=== PATIENT | female | born 1990 | race African-American/Black ===

== ENCOUNTER 2018-09-03 01:03 | Emergency (ER) | payer MEDICAID, SELFPAY ==
[2018-09-03 01:04] VITALS: BP 150/96; PULSE 87; RESP 16; TEMP 36.4; O2SAT 100; BMI 36.8
--- NOTE | 2018-09-03 01:42 | ED.DCSUM_ITS ---
- ER Visit Summary Date of Service: 09/03/18 Chief Complaint: Cough and cannot hear History of Present Illness: The patient is a 28 F patient presenting for evaluation secondary to a respiratory illness and some difficulty with hearing. Patient reports of a course of the last week she has had a nonproductive cough. She states that it has been associated with some rhinorrhea, and the last 2 days she reports she has had plugged ears and had some difficulty with hearing. She endorses that she has had some right ear pain associated with this. She denies any nausea or vomiting. She denies any fevers. Patient is a heavy smoker. Review of systems otherwise negative. Physical Examination: Vital signs notable blood pressure 150/96. Well-nourished female no acute distress. Head normal cephalic atraumatic. TMs are clear bilaterally with some fluid behind the TMs but no evidence of opacity or blunting of the landmarks. Oropharynx is clear. Neck is supple. Heart was regular rate and rhythm with evidence of paradoxical splitting of the S2. Lung sounds are indicative of mild wheezes bilaterally. No respiratory distress. Remainder of physical otherwise unremarkable. Test Results: None indicated Emergency Department Course and Treatment: Patient presented for evaluation secondary to cough and difficulty with hearing. As far as the patient's respiratory illness seems like she has some bronchitis and some sinusitis. This has been going on over the course of about the last week so I will place the patient on a inhaler and some doxycycline. Patient coincidentally was noted to have a paradoxical split S2. She is not complaining of any chest pain does not have any tachycardia or arrhythmia I believe she can follow-up with primary care for this. She was recommended to follow-up with PCP. Disposition: Discharge Impression: 1. Bronchitis and sinusitis 2. Paradoxical splitting of the S2 This note was generated with [email or web address] dictation software. It may contain incorrect words, spelling, and punctuation that were not noted in review of the chart prior to signing ED Disposition - Plan for ED Patient: Disposition: Home or Assisted Living Chief Complaint: Ear Problem Diagnosis: Bronchitis, Heart murmur Instructions: Acute Bronchitis, ED Murmur All Types Ch Prescriptions: Albuterol Inhaler [Ventolin Hfa] 1 - 2 puff INHALATION Q4H PRN PRN #1 inhaler PRN Reason: Wheezing Doxycycline 100 mg PO BID #20 cap Referrals: Ruddy Rosenthal III, MD [STAFF PHYSICIAN] - Additional Instructions: Your had a slight heart murmur on exam that will require further followup with a primary care doctor.
== END 2018-09-03 01:52 | disposition home or self-care (01) ==
PROVIDERS: Emergency Provider Emergency Medicine
DX: J40 Bronchitis, not specified as acute or chronic (principal); J32.9 Chronic sinusitis, unspecified; R01.2 Other cardiac sounds; F17.200 Nicotine dependence, unspecified, uncomplicated
CPT/HCPCS: 99282

== ENCOUNTER 2020-01-19 17:23 | Emergency (ER) | payer SELFPAY ==
[2020-01-19 17:24] VITALS: BP 150/79; PULSE 80; RESP 18; TEMP 36.3; O2SAT 99; BMI 24.3
--- NOTE | 2020-01-19 17:39 | ED.VIS.GEN ---
History of Present Illness Chief Complaint: Nausea/Vomiting Informant: Patient Onset: Today Current Severity: Moderate Maximum Severity: Moderate Narrative: Patient presents after nausea, vomiting, and diarrhea. She states she went to the bar last night and had a couple beers and 6 shots. She states normally she can drink much more than this and feels fine. She woke up this morning with nausea and vomiting. She has not been able to keep anything down all day. She states her stomach is in knots. She denies fever or chills. She denies possibility of . - Past Medical History (1) History of appendectomy Status: Chronic Past Medical History - Allergies and Home Meds Allergies/Adverse Reactions: Allergies blueberry [Blueberry] Allergy (Verified 01/19/20 17:27) Anaphylaxis nickel [Nickel] Allergy (Verified 01/19/20 17:27) Hives lactose Adverse Reaction (Verified 01/19/20 17:27) Upset Stomach Primary Care Physician: Tanika Bolden MD [STAFF PHYSICIAN] - As Needed Prior records reviewed: Yes Surgical History: appendectomy Smoking Status: Current every day smoker Review of Systems General: Reports: Chills Eyes: Denies: Visual changes - bilaterally ENT: Denies: Bilateral ear pain Cardiovascular: Denies: Chest pain Respiratory: Denies: Dyspnea, Cough Gastrointestinal: Reports: Abdominal pain, Nausea, Vomiting, Diarrhea Genitourinary: Denies: Dysuria Musculoskeletal: Denies: Extremity Pain Skin: Denies: Rash Neurological: Denies: Headache Hematologic: Denies: Easy bruising Allergy: Denies: Uticaria Physical Exam Vital Signs/Narrative: Vital Signs Temp Pulse Resp BP Pulse Ox 01/19/20 17:24 97.4 F L 80 18 150/79 H 99 Inital Vital Signs reviewed: Yes General: Well nourished, Well developed Head: Normocephalic ENT: Moist mucous membranes Neck: Supple Cardiovascular: Regular rate, Regular rhythm Respiratory: No distress, CTA bilaterally Abdomen: Soft, Nontender, Hypoactive bowel sounds Extremities: Nontender Skin: Normal color Neurological: Alert, Oriented x3 Psychological: Normal affect Diagnostic/Tx/Re-eval Laboratory Results 01/19/20 17:45 Sodium 138 Potassium 4.9 Chloride 109 H Carbon Dioxide 20.0 L Anion Gap 9 BUN 13 Creatinine 0.92 Estim Creat Clear Calc 97.57 Est GFR (MDRD) Af Amer 92 Est GFR (MDRD) Non-Af 76 BUN/Creatinine Ratio 14.1 Glucose 86 Calcium 9.2 - Medical Decision Making Patient was given Zofran and Bentyl. On repeat evaluation she is feeling much improved. She was able to tolerate p.o. fluids. ED Disposition - Plan for ED Patient: Disposition: Home or Assisted Living Diagnosis: Vomiting Instructions: ED Nausea Vomiting Adult Prescriptions: Ondansetron [Zofran Odt] 4 mg PO Q8H PRN PRN #10 tab PRN Reason: Nausea Prescription Printed Referrals: Tanika Bolden MD [STAFF PHYSICIAN] - As Needed
[2020-01-19] MEDS: Dicyclomine 20 MG/2 ML Vial IM (17:57)
[2020-01-19] MEDS: Ondansetron 4 MG/2 ML Vial IV (18:00)
[2020-01-19] MEDS: 0.9% Normal Saline 1,000 ML 1000 ML IV (18:00)
[2020-01-19 18:41] LABS: Anion Gap 9 (5-15); BUN 13 mg/dL (7-18); BUN/Creat Ratio 14.1 RATIO (10-20); Calcium,Total 9.2 mg/dL (8.5-10.1); Chloride 109 mmol/L (98-107); Creatinine, Serum 0.92 mg/dL (0.55-1.02); EST Glomerular Filtration Rate 76 mL/min (>60); Est Glom Filt Rate - Afr Amer 92 mL/min (>60); Estimated Creatinine Clearance 97.57 ml/min; Glucose 86 mg/dL (74-106); Potassium 4.9 mmol/L (3.5-5.1); Sodium Level 138 mmol/L (136-145)
== END 2020-01-19 19:35 | disposition home or self-care (01) ==
PROVIDERS: Emergency Provider Emergency Medicine
DX: R11.2 Nausea with vomiting, unspecified (principal); F17.200 Nicotine dependence, unspecified, uncomplicated
CPT/HCPCS: 80048; 96361; 96372; 96374; 99283; J7030; A4216; J2405

== ENCOUNTER 2020-06-24 08:12 | Emergency (ER) | payer MEDICAID, SELFPAY ==
[2020-06-24 08:13] VITALS: BP 112/91; PULSE 107; RESP 17; TEMP 36.3; O2SAT 100; BMI 33.0
--- NOTE | 2020-06-24 08:24 | RAD_ITS ---
STUDY: X-RAY - LUMBAR SPINE REASON FOR EXAM: Female, 30 years old. BACK PAIN W/ RADIATION TOWARD LLE. HX TRAUMA TECHNIQUE: 2 view(s) of the lumbar spine were obtained. COMPARISON: None FINDINGS: Normal lumbar lordosis. There is no substantial scoliosis. There is a normal alignment of the vertebrae. Normal vertebral bodies and endplates. Normal disc space heights. The soft tissue structures are unremarkable. RAD/Lumbar Spine 2 or 3 Views IMPRESSION: Normal x-ray examination of the lumbar spine. Electronically Signed: Robert Woodard, at 9:53 EST , Service support ,
--- NOTE | 2020-06-24 08:25 | ED.VIS.BACK ---
History of Present Illness Chief Complaint: Back Informant: Patient Onset: Weeks - 2-3 Context: Gradual Onset - after fall Injury: Fall Timing: Continuous Quality: Aching Location: Lumbar, Left Leg Current Severity: Moderate Maximum Severity: Severe Worsened by: improves with: Ambulation Relieved by: Remaining Still Associated Symptoms: - - Pain radiates down left lower extremity to the foot at times. No saddle anesthesia. No numbness, tingling, abdominal pain, dysuria, bowel or bladder dysfunction/incontinence/retention. Narrative: Patient states she was carrying some heavy things down some steps, she slipped or tripped, twisted in the process of falling and landing on her low back. She was sore but okay, later went to work, and has had gradual worsening of pain in her mid low back, that has now been mostly on the left side and radiating down the left lower extremity in the past week or 2. Past Medical History - Allergies and Home Meds Allergies/Adverse Reactions: Allergies blueberry [Blueberry] Allergy (Verified 06/24/20 08:18) Anaphylaxis nickel [Nickel] Allergy (Verified 06/24/20 08:18) Hives lactose Adverse Reaction (Verified 06/24/20 08:18) Upset Stomach Primary Care Physician: Care Physician,No Primary [Primary Care Provider] - Past Medical History: None Surgical History: appendectomy Smoking Status: Current every day smoker Review of Systems General: Denies: Chills, Fever, Sweats Eyes: Denies: Visual changes - bilaterally, Diplopia ENT: Denies: Rhinorrhea, Sore throat Cardiovascular: Denies: Chest pain, Palpitations Respiratory: Denies: Dyspnea, Cough, Dyspnea on exertion Gastrointestinal: Denies: Abdominal pain, Vomiting, Diarrhea, Melena, Hematochezia Genitourinary: Denies: Dysuria, Hematuria, Frequency Musculoskeletal: Reports: Back pain, Extremity Pain. Denies: Neck pain, Swelling Skin: Denies: Rash, Wounds Neurological: Denies: Headache, Weakness, Numbness Physical Exam Vital Signs/Narrative: Vital Signs Temp Pulse Resp BP Pulse Ox 06/24/20 08:13 97.3 F L 107 H 17 112/91 H 100 Inital Vital Signs reviewed: Yes General: Well nourished, Well developed, Obese, - - Well-appearing, no distress Head: Normocephalic, Atraumatic Eyes: Perrl, EOMI ENT: Moist mucous membranes, No rhinorrhea Neck: Supple, - - Full range of motion without meningismus Cardiovascular: Regular rate, Regular rhythm, No murmurs Respiratory: No distress, CTA bilaterally Abdomen: Soft, Nontender, Nondistended, Normal bowel sounds Back: Normal Inspection, Spinal tenderness - Mild tenderness lumbar spine, no step-off or signs of trauma, Negative SLR - Right, Negative SLR - Left - Does increase low back pain, no radicular symptoms. Negative for: CVA tenderness Extremeties: Nontender, No edema Skin: Normal color, No rash Neuro: Alert, Oriented, Normal Strength, Normal Sensation, Normal Gait, Normal Reflexes - With downgoing toes bilaterally, no clonus Psychological: Normal affect, Normal Mood Diagnostic/Tx/Re-eval - Medical Decision Making On my interpretation, 3 view x-ray series of the lumbosacral spine is normal. Interpretation is still pending. Patient was treated with Toradol and an oral Flexeril and had some improvement. She is reassured this is likely all musculoskeletal, and probably nothing dangerous just uncomfortable hopefully self-limiting. Differential includes SI joint dysfunction, piriformis injury, she had does have some tenderness in the piriformis area which could be irritating the sciatic nerve, however her straight leg raises are negative and she does not have any signs or symptoms of cauda equina syndrome. She was given prescriptions and referred to the next doctor on the unassigned list. We discussed the possibilities of physical therapy and chiropractic to help this problem. ED Disposition - Plan for ED Patient: Disposition: Home or Assisted Living Diagnosis: Musculoskeletal back pain Instructions: ED LUMBAR SPRAIN/STRAIN Prescriptions: cycloBENZAPRine HCl [Flexeril] 10 mg PO TID PRN #15 tab PRN Reason: Muscle Spasm Transmission Status: Pending to [facility] Naproxen [Naprosyn] 500 mg PO BID PRN #20 tab Transmission Status: Pending to [facility] Referrals: Cyrus Hines DO [STAFF PHYSICIAN] - 1 Week if not improving
[2020-06-24] MEDS: Ketorolac 60 MG/2 ML Vial IM (08:48)
[2020-06-24] MEDS: cycloBENZAPRine HCl 10 MG Tablet PO (08:48)
[2020-06-24 09:45] VITALS: BP 120/67; PULSE 59; RESP 16; O2SAT 98
== END 2020-06-24 09:49 | disposition home or self-care (01) ==
PROVIDERS: Emergency Provider Emergency Medicine
DX: M54.9 Dorsalgia, unspecified (principal); F17.200 Nicotine dependence, unspecified, uncomplicated; E66.9 Obesity, unspecified
CPT/HCPCS: 72100; 96372; 99283

== ENCOUNTER 2020-08-20 04:35 | Emergency (ER) | payer MEDICAID, SELFPAY ==
[2020-08-20 04:36] VITALS: BP 126/75; PULSE 92; RESP 20; TEMP 36.5; O2SAT 99; BMI 39.2
[2020-08-20 04:39] VITALS: O2SAT 100
--- NOTE | 2020-08-20 04:46 | EKG12_ITS ---
Test Reason : SOB Blood Pressure : / mmHG Vent. Rate : 080 BPM Atrial Rate : 080 BPM P-R Int : 150 ms QRS Dur : 076 ms QT Int : 408 ms P-R-T Axes : 075 064 039 degrees QTc Int : 470 ms Normal sinus rhythm Normal ECG Confirmed by PRICILLA AYALA, WES ([id number]), commissioning editor SEAMUS RUDD ([id number]) on 08/24/2020 9:33:14 AM Referred By: LEVI Confirmed By:YANY PLEITEZ MD
--- NOTE | 2020-08-20 04:46 | RAD_ITS ---
STUDY: X-RAY CHEST REASON FOR EXAM: Female, 30 years old. patient has not been feeling well for the past couple of days. patient complains of fever and cough. woke up this morning with shortness of breath and chest pain TECHNIQUE: Single AP portable view of the chest. COMPARISON: 05/26/2013. FINDINGS: There are no confluent pulmonary infiltrates. There is no demonstrated pleural abnormality. Normal size heart. Normal mediastinum and jorge. Normal visualized aortic arch and descending thoracic aorta. There are no demonstrated acute fractures or destructive bone lesions. There is no demonstrated abnormality of the visualized soft tissue structures of the upper abdomen. RAD/Chest 1 View (Portable) IMPRESSION: Normal x-ray examination of the chest. Electronically Signed: Ras Dillon MD at 5:31 EST , Service support ,
--- NOTE | 2020-08-20 04:47 | ED.VIS.GEN ---
History of Present Illness Chief Complaint: Shortness of Breath Narrative: 30-year-old female with no reported significant past medical history presenting with body aches, loss of taste and smell, cough and shortness of breath. She has no known exposure to Covid?19. Patient states that her symptoms started Monday with a headache and generally feeling unwell. On Monday she had some nausea/vomiting. He has been able to hold down some fluids but has decreased appetite. She states she took some gingerroot which did help mildly. On Monday she felt somewhat improved and then yesterday started to have nausea, vomiting. Patient denies abdominal pain. She is admitting to some chest discomfort in the left side of her chest. She has a painful cough as well. She has no known fever at home but has not checked it. History of DVT/PE. Past Medical History - Allergies and Home Meds Allergies/Adverse Reactions: Allergies blueberry [Blueberry] Allergy (Verified 08/20/20 04:39) Anaphylaxis nickel [Nickel] Allergy (Verified 08/20/20 04:39) Hives lactose Adverse Reaction (Verified 08/20/20 04:39) Upset Stomach Primary Care Physician: Care Physician,No Primary [Primary Care Provider] - Prior records reviewed: Yes Past Medical History: - - Denies significant medical history. Surgical History: appendectomy Smoking Status: Current every day smoker Alcohol: None Drugs: None Review of Systems General: Reports: Chills, Malaise Eyes: Denies: Visual changes - bilaterally, Diplopia ENT: Denies: Rhinorrhea, Sore throat Cardiovascular: Reports: Chest pain. Denies: Palpitations, Heart racing Respiratory: Reports: Dyspnea, Cough Gastrointestinal: Reports: Nausea, Vomiting, Diarrhea. Denies: Abdominal pain Genitourinary: Denies: Dysuria, Hematuria, Frequency Musculoskeletal: Reports: Myalgias. Denies: Arthralgias Skin: Denies: Rash, Wounds Neurological: Denies: Parasthesia, Numbness Psych: Denies: Depression, Anxiety Physical Exam Vital Signs/Narrative: Vital Signs Temp Pulse Resp BP Pulse Ox 08/20/20 04:36 97.7 F L 92 20 H 126/75 H 99 Inital Vital Signs reviewed: Yes General: Well nourished, No Acute Distress Head: Normocephalic, Atraumatic Eyes: Perrl, EOMI ENT: Moist mucous membranes, No rhinorrhea Cardiovascular: Regular rate, Regular rhythm Respiratory: No distress, CTA bilaterally Abdomen: Soft, Nontender Extremities: Nontender, No edema Skin: Normal color, No rash. Negative for: Cyanosis, Diaphoresis Neurological: Alert, Oriented x3, Cranial nerves II-XII grossly intact Psychological: Normal affect, Normal Mood Diagnostic/Tx/Re-eval - Rhythm Strip Rhythm Strip: Sinus Rhythm Rate: 80 - EKG Initial EKG Interpretation: Sinus Rhythm, No Acute Injury Pattern - Medical Decision Making 30-year-old female presenting with chest pain, cough, shortness of breath, body aches, change in taste and smell. Patient's initial EKG was sinus rhythm 80 bpm without signs of ischemic change as interpreted by myself. Chest x-ray shows no acute process as interpreted by myself and the radiologist. CBC shows a slight white blood cell count at 13,000 which may be due to the patient's vomiting. Her electrolytes and renal function are normal. Troponin is negative. CTA interpreted by the radiologist and reviewed by myself show no obvious PEs or infiltrates. Patient will be given a prescription for Zofran for home. She is encouraged to up with her primary care provider. She is given return precautions. Patient stable for discharge at this time. I do not believe that her chest pain is from a cardiac etiology. I do not believe she needs another EKG or troponin. Impression: 1. Viral syndrome 2. Nausea vomiting 3. Chest pain ED Disposition - Plan for ED Patient: Disposition: Home or Assisted Living Instructions: Coronavirus Disease 2019 (COVID-19): Overview, Coronavirus Disease 2019 (COVID-19): Caring for Yourself or Others, ED Vomiting (Adult), ED Chest Pain, Uncertain Cause Referrals: Care Physician,No Primary [Primary Care Provider] -
--- NOTE | 2020-08-20 04:49 | ED.RN ---
no old ekgs in [facility]
[2020-08-20 04:59] LABS: Absolute Lymphocyte Count 3.41 X10^3/uL (0.83-4.51); Absolute Neutrophil Count 7.8 X10^3/uL (2.0-7.7); Basophil# 0.13 X10^3/uL; Eosinophil# 0.71 X10^3/uL; Eosinophils% 5.4 % (0-5); Hematocrit 38.7 % (37-47); Hemoglobin 12.3 g/dL (12.0-15.0); Lymphocyte # 3.41 X10^3/ul (4.0); Mean Corp Hgb Conc 31.8 g/dL (32-36); Mean Corpuscular Hgb 26.3 pg (27.0-32.0); Mean Corpuscular Volume 82.9 fL (81-99); Mean Platelet Vol. 9.9 fl (6.2-12.0); Monocyte# 1.09 X10^3/uL; Monocyte% 8.3 % (0-10); NRBC Flagged by Analyzer 0 % (0-5); Neutrophil # 7.75 X10^3/uL (2.7-7.7); Platelet Count 394 K/mm3 (150-450); RBC Distribution Width CV 14.6 % (11.6-14.6); RBC Distribution Width SD 43.4 fl (35.1-43.9); Red Blood Count 4.67 M/mm3 (4.2-5.4); White Blood Count 13.1 K/mm3 (4.4-11.0)
--- NOTE | 2020-08-20 05:03 | CT_ITS ---
STUDY: CTA CHEST REASON FOR EXAM: Female, 30 years old. CP/COUGH/SOB/FEVER. Best images. Patient writhing on table. IV infiltrated RADIATION DOSAGE (If Supplied By Facility): CTDIvol = ( 8.64 ) mGy, DLP = ( 553.07 ) mGycm TECHNIQUE: The examination was performed with the intravenous administration of IV 100mL Isovue-370. Post-processing of the angiographic images was performed, with multiplanar reformation, but without 3D reconstruction. Exam is limited by motion artifacts. Individualized dose optimization techniques were used for this CT. COMPARISON: Chest x-ray 08/20/2020.w FINDINGS: Normal enhancement of the main pulmonary artery and right and left pulmonary arteries. Slightly limited enhancement of the bilateral peripheral pulmonary arteries. There is no demonstrated pulmonary embolism. Sensitivity for small pulmonary emboli is limited by respiratory motion as well as slightly limited contrast enhancement. Normal thoracic aorta and visualized great vessels. There is no demonstrated aortic dissection. Normal heart and pericardium. Normal mediastinum. Normal hilar regions. Normal visualized trachea and bronchi. The lungs are well expanded. Normal pulmonary parenchyma. Normal pleura. Normal chest wall structures. Normal osseous structures. Normal visualized upper abdomen. CT/CTA Chest W/WO Contrast IMPRESSION: No evidence for pulmonary embolism, aortic aneurysm, or aortic dissection. Sensitivity for small pulmonary emboli is limited by motion artifacts as well as slightly less than optimal contrast enhancement. No evidence for acute cardiopulmonary pathology. Electronically Signed: Ras Dillon MD at 6:02 EST , Service support ,
[2020-08-20 05:18] LABS: AST(SGOT) 14 U/L (15-37); Alanine Aminotransfer ALT/SGPT 18 U/L (13-56); Albumin, Serum 3.8 g/dL (3.2-5.0); Alkaline Phosphatase 86 U/L (45-117); Anion Gap 6 (5-15); BUN 13 mg/dL (7-18); BUN/Creat Ratio 13.5 RATIO (10-20); Calcium,Total 8.7 mg/dL (8.5-10.1); Chloride 109 mmol/L (98-107); Creatinine, Serum 0.96 mg/dL (0.55-1.02); EST Glomerular Filtration Rate 72 mL/min (>60); Est Glom Filt Rate - Afr Amer 87 mL/min (>60); Estimated Creatinine Clearance 89.55 ml/min; Glucose 96 mg/dL (74-106); Potassium 3.8 mmol/L (3.5-5.1); Protein, Total 7.8 g/dL (6.4-8.2); Sodium Level 136 mmol/L (136-145)
[2020-08-20] MEDS: Ondansetron ODT 4 MG Tablet PO (06:17)
[2020-08-20 06:28] VITALS: RESP 18; O2SAT 97
== END 2020-08-20 06:29 | disposition home or self-care (01) ==
PROVIDERS: Emergency Provider Student in an Organized Health Care Education/Training Program
DX: B34.9 Viral infection, unspecified (principal); R11.2 Nausea with vomiting, unspecified; R07.9 Chest pain, unspecified; F17.200 Nicotine dependence, unspecified, uncomplicated; Z86.711 Personal history of pulmonary embolism; Z86.718 Personal history of other venous thrombosis and embolism
CPT/HCPCS: 71045; 71275; 80053; 84484; 85025; 87635; 93005; 99285; Q9967; A4216; U0003

== ENCOUNTER 2020-08-27 12:02 | Emergency (ER) | payer MEDICAID, SELFPAY ==
[2020-08-27 12:04] VITALS: BP 136/90; PULSE 69; RESP 27; TEMP 36.6; O2SAT 100; BMI 39.7
--- NOTE | 2020-08-27 12:25 | ED.VISSUMM ---
- ER Visit Summary Date of Service: 08/27/20 Chief Complaint: Abdominal pain, nausea, and vomiting History of Present Illness: The patient is a 30 F who presents with abdominal pain, nausea, and vomiting that has been getting worse over the past 3 days. Patient states she has been having some nausea and vomiting for the past week. Patient states her pain began 3 days ago and is getting worse. Patient describes it as sharp. Patient states it is worse over the lower abdomen but is diffuse across her entire abdomen. Patient denies any hematemesis or coffee-ground emesis. Patient also admits to some diarrhea. Patient states it is loose and watery. Patient also admits to some dysuria and urinary frequency. Patient states she has been having some constant vaginal bleeding for the past 2 months. Physical Examination: Vital signs are stable. Patient is afebrile. Patient is in no acute distress. Oral mucosa is pink and moist. Neck is supple. Trachea is midline. There is no JVD. Heart was regular rate and rhythm. Lungs are clear and equal bilaterally. There is adequate respiratory effort. Abdomen is soft. Bowel sounds are normal. There is diffuse tenderness. There is no rebound or guarding noted. Cranial nerves II through XII are intact. There are no focal motor or sensory deficits noted. Extremities are intact. There is no calf tenderness or edema. Test Results: CBC and comprehensive metabolic profile were ordered. Urinalysis was ordered. Serum hCG was ordered. Emergency Department Course and Treatment: Patient was ordered IV fluids, Zofran, and Toradol. Patient became upset when the nurse was starting the IV. Patient wants to be discharged. Patient does not want to wait for urine results or to get any labs or medications. Patient will be discharged. Patient was instructed to follow-up with her primary care physician in 3 to 5 days. Patient understood and was agreeable with the plan. Disposition: Discharge home Impression: 1. Abdominal pain This note was generated with [employer] dictation software. It may contain incorrect words, spelling, and punctuation that were not noted in review of the chart prior to signing Capacity - Capacity Assessment Tool Can the patient make a choice & communicate that choice?: Yes Can the patient understand benefits, risks and alternatives?: Yes Can the patient make a logical, rational choice?: Yes Is the choice the patient makes consistent w/ their values?: Yes Is there an impending, emergent risk to the patient?: No ED Disposition - Plan for ED Patient: Disposition: Home or Assisted Living Diagnosis: Abdominal pain Instructions: ED Abdominal Pain Unkn Cause Fem Referrals: Care Physician,No Primary [Primary Care Provider] - 3-5 Days
[2020-08-27 12:50] LABS: Mucous, Urine 0 SEEN /hpf (<or=2+)
[2020-08-27 13:00] LABS: Color, Urine Yellow (Yellow); Glucose, Dipstick Normal (Normal); Ketone-Dipstick Negative (Negative); Leukocyte Esterase-Dipstick 100 /ul (Negative); Nitrite-Dipstick Negative (Negative); Occult Blood-Urine 250 /ul (Negative); Protein-Dipstick Negative (Negative); Urine Bilirubin Dipstick Negative (Negative); Urine Clarity Clear (Clear); Urine Urobilinogen Normal (Normal)
[2020-08-27 13:02] LABS: Bacteria 1+ /hpf (None Seen); Red Blood Cells-Urine 25-50 SEEN /hpf (0-5); Squamous Epithelial Cells - UA 0-5 SEEN /hpf (5-10); White Blood Cells 10-25 SEEN /hpf (0-5)
--- NOTE | 2020-08-27 13:04 | ED.RN ---
ATEMPTED TO START PTS IV, PT'S ANXIETY WENT TROUGH THE ROOF RESULTING IN HER CRYING A YELLING HYSTERICALLY. PT WAS CRYING AND TOOK MULTIPLE TIMES OF SOFLY TALKING WITH HER TO GET HER CALMED DOWN. PT WAS ABLE TO RELAX ENOUGH TO LOOK FOR ANOTHER IV SITE BUT BEFORE IT WAS ATTEMPTED PT STATED SHE JUST WANTED TO GO HOME. TRY TO CONVINCE PT TO ATLEAST WAIT FOR HER URINE RESULTS BUT SHE CONTINUES TO CRY AND SAY SHE NEEDS TO GO HOME. PHYSICIAN NOTIFIED AND AGREED TO DISCHARGE PT. PT WAS GIVEN DISCHARGE PAPERS AFTER AGAIN TRYING TO ENCOURAGE HER TO STAY FOR ATLEAST HER URINE RESULTS. PT STATED SHE JUST WANTED TO GO HOME.
[2020-08-27 15:00] LABS: Chlamydia Trachomatis by PCR Negative (Negative); Neisserai gonorrhoeae by PCR Negative (Negative); Probe Check PASS; Sample Adequacy Control PASS; Specimen Processing Control PASS
== END 2020-08-27 13:10 | disposition home or self-care (01) ==
PROVIDERS: Emergency Provider Emergency Medicine
DX: R10.9 Unspecified abdominal pain (principal); F17.200 Nicotine dependence, unspecified, uncomplicated
CPT/HCPCS: 81001; 87491; 87591; 99284; J2405

== ENCOUNTER → 2020-08-28 12:09 | Outpatient (CLI) | payer MEDICAID, SELFPAY ==
[2020-08-28 10:03] VITALS: BMI 38.5
[2020-08-28 12:26] LABS: Color, Urine Yellow (Yellow); Glucose, Dipstick Normal (Normal); Ketone-Dipstick 5 mg/dl (Negative); Leukocyte Esterase-Dipstick 25 /ul (Negative); Nitrite-Dipstick Negative (Negative); Occult Blood-Urine 25 /ul (Negative); Protein-Dipstick 30 mg/dl (Negative); Specific Gravity, Urine 1.025 (1.002-1.030); Urine Bilirubin Dipstick Negative (Negative); Urine Clarity Sl. Cloudy (Clear); Urine Urobilinogen 1 mg/dl (Normal)
[2020-08-28 12:45] LABS: Bacteria RARE /hpf (None Seen); Mucous, Urine 1+ /hpf (<or=2+); Red Blood Cells-Urine 0-5 SEEN /hpf (0-5); Squamous Epithelial Cells - UA 0-5 SEEN /hpf (5-10); White Blood Cells 0-5 SEEN /hpf (0-5)
== END ==
PROVIDERS: Referring Provider Physician Assistant Surgical; Visit Provider Physician Assistant Surgical
DX: R11.0 Nausea (principal)
CPT/HCPCS: 81001; 87086; 87088

== ENCOUNTER → 2020-09-29 09:48 | Outpatient (CLI) | payer MEDICAID, SELFPAY ==
[2020-09-29 08:21] VITALS: BMI 38.7
[2020-09-29 13:07] LABS: Hemoglobin A1c 5.5 % (3.8-5.6)
[2020-09-29 13:08] LABS: Absolute Lymphocyte Count 2.16 X10^3/uL (0.83-4.51); Absolute Neutrophil Count 4.9 X10^3/uL (2.0-7.7); Basophil# 0.09 X10^3/uL; Basophil% 1.1 % (0-1); Eosinophil# 0.48 X10^3/uL; Eosinophils% 5.8 % (0-5); Hematocrit 36.9 % (37-47); Hemoglobin 11.7 g/dL (12.0-15.0); Lymphocyte # 2.16 X10^3/ul (4.0); Lymphocyte % 26.3 % (19-41); Mean Corp Hgb Conc 31.7 g/dL (32-36); Mean Corpuscular Hgb 26.2 pg (27.0-32.0); Mean Corpuscular Volume 82.6 fL (81-99); Mean Platelet Vol. 10.2 fl (6.2-12.0); Monocyte# 0.57 X10^3/uL; Monocyte% 6.9 % (0-10); NRBC Flagged by Analyzer 0 % (0-5); Neutrophil % 59.7 % (47-70); Platelet Count 374 K/mm3 (150-450); RBC Distribution Width CV 14.7 % (11.6-14.6); Red Blood Count 4.47 M/mm3 (4.2-5.4); White Blood Count 8.2 K/mm3 (4.4-11.0)
[2020-09-29 13:17] LABS: Vitamin D,25 Hydroxy 9.6 ng/mL
[2020-09-29 13:40] LABS: ALB/GLOB Ratio 0.9 RATIO (0.9-2.4); AST(SGOT) 13 U/L (15-37); Alanine Aminotransfer ALT/SGPT 24 U/L (13-56); Albumin, Serum 3.5 g/dL (3.2-5.0); Alkaline Phosphatase 73 U/L (45-117); Anion Gap 6 (5-15); BUN 13 mg/dL (7-18); BUN/Creat Ratio 14.2 RATIO (10-20); Calcium,Total 8.6 mg/dL (8.5-10.1); Chloride 111 mmol/L (98-107); Cholesterol 165 mg/dL (200); Creatinine, Serum 0.91 mg/dL (0.55-1.02); EST Glomerular Filtration Rate 76 mL/min (>60); Est Glom Filt Rate - Afr Amer 93 mL/min (>60); Glucose 89 mg/dL (74-106); High Density Lipoprotein 40 mg/dL; Potassium 4.2 mmol/L (3.5-5.1); Protein, Total 7.5 g/dL (6.4-8.2); Sodium Level 140 mmol/L (136-145); Thyroid Stim Hormone (TSH) 1.66 uIU/mL (0.358-3.74); Triglycerides 71 mg/dL; Very Low Density Lipoprotein 14 mg/dL (5-40)
== END ==
PROVIDERS: PCP Internal Medicine; Referring Provider Internal Medicine; Visit Provider Internal Medicine
DX: E55.9 Vitamin D deficiency, unspecified (principal); Z13.220 Encounter for screening for lipoid disorders; Z13.1 Encounter for screening for diabetes mellitus
CPT/HCPCS: 36415; 80053; 80061; 82306; 83036; 84443; 85025

== ENCOUNTER → 2020-10-09 08:09 | Outpatient (CLI) | payer MEDICAID, SELFPAY ==
[2020-09-29 08:21] VITALS: BMI 38.7
--- NOTE | 2020-10-09 08:11 | US_ITS ---
STUDY: ABDOMINAL ULTRASOUND - RIGHT UPPER QUADRANT REASON FOR VISIT: Female, 30 years old REFLUX -- RIGHT AND EPIGASTRIC PAIN X 2 YEARS TECHNIQUE: Ultrasound evaluation of the right upper quadrant was performed with real-time and static antunez-scale imaging. TECHNICAL QUALITY: Adequate. COMPARISON: None. FINDINGS: Liver: The liver measures 17.5 cm. There is increased echogenicity consistent with fatty infiltration. The bile ducts are within normal limits. There is hepatic color flow. The direction of portal flow is hepatopetal. There is no demonstrated mass lesion. Gallbladder: Normal distended gallbladder. The gallbladder wall measures 2.8 mm. There is a negative sonographic Sheehan''s sign. There is no pericholecystic fluid. There are no gallstones. Common Bile Duct (C.B.D.): The common bile duct measures 3 mm. Pancreas: Normal size of the head, body and tail of the pancreas. There is normal echogenicity of the pancreas. There is no demonstrated pancreatic mass or cyst. Right Kidney: Normal size of the right kidney. The right kidney measures 10.1 cm x 6.6 cm x 4.7 cm. Normal renal cortex. The right cortex measures 1.6 cm. There is no demonstrated renal mass or cyst. There is no right hydronephrosis. US/Abdomen Limited IMPRESSION: Mild degree of fatty infiltration of the liver. Electronically Signed: Robert Woodard MD at 10:57 EST , Service support ,
--- NOTE | 2020-10-09 10:22 | NM_ITS ---
CLINICAL: 30-year-old female with reported history of abdominal pain and nausea. RADIONUCLIDE HEPATOBILIARY SCINTIGRAPHY COMPARISON: Abdominal ultrasound report 10/09/2020 FINDINGS: Following the intravenous administration of 5.3 mCi of 99m Tc Mebrofenin, hepatobiliary images reveal: 1. Relatively prompt and homogeneous radiopharmaceutical concentration is noted by a normal sized liver. No parenchymal defects are identified. 2. Gallbladder activity is identified at 10 minutes post radiopharmaceutical administration. 3. Small intestinal tract is not visualized during 60 minutes of pre-CCK sequential imaging. Small bowel activity is identified following the administration of cholecystokinin. 4. Washout of the radiopharmaceutical by the hepatic parenchyma appears qualitatively normal. Cholecystokinin (0.02 ug/kg) was administered intravenously over a 30-minute period. The post CCK gallbladder ejection fraction calculated at 16 minutes following Cholecystokinin administration was noted to be 38.0 % (normal greater than 35%). During 30 minutes of post CCK imaging, there is no scintigraphic evidence of reflux of the radiotracer into the common hepatic duct or refilling of the gallbladder. NM/Hepatobilliary Img w/Pharm Int IMPRESSION: 1. NORMAL 99m Tc Mebrofenin hepatobiliary imaging examination with Cholecystokinin. A. A gallbladder ejection fraction calculated to be greater than 35% following the administration of Cholecystokinin makes the probability of functional hepatobiliary disease (gallbladder and/or sphincter of Oddi dyskinesia) and/or organic hepatobiliary disease (chronic acalculous cholecystitis and/or cystic duct syndrome) to be low. (Radha Hammond et al, Journal of Nuclear Medicine 32:1695, 1991). Electronically Signed: Ld Licona DO at 8:23 EST Tel , Service support ,
== END ==
PROVIDERS: PCP Internal Medicine; Referring Provider Internal Medicine; Visit Provider Internal Medicine
DX: K21.9 Gastro-esophageal reflux disease without esophagitis (principal); R10.9 Unspecified abdominal pain
CPT/HCPCS: 76705; 78227; A9537; J2805

== ENCOUNTER 2020-10-16 09:23 | Day surgery (SDC) | payer MEDICAID, SELFPAY ==
[2020-10-16] VITALS (7 sets, daily range): BP systolic 91–121; BP diastolic 67–95; PULSE 63–72; RESP 16; TEMP 36.1–36.4; O2SAT 98–100; BMI 37.2
--- NOTE | 2020-10-16 | EGD_PTH ---
PATIENT: LUCIANO MITCHELL LOC: EN U#:[id number] AGE/SX: 30/F ROOM: RE10/16/[address]: Dr. Roddy Rosenthal MD : 1990 BED: DIS: 10/16/2020 SPEC #: [id number] RECD: 10/16/20 12:40 STATUS: ALVAREZ GENNY #: [id number] XANDER: 10/16/20 00:[address]: Roddy Rosenthal DEPT: SURGICAL PATHOLOGY RECD BY: Gonzalez Roldan ENTERED: 10/16/20 12:41 SP TYPE: EGD BIOPSY [facility] DR: Dr. Pebbles Joy MD Tissues: A - Duodenum, NOS B - Gastric mucous membrane C - Esophageal mucous membrane D - Esophageal mucous membrane E - COLON BIOPSY F - Transverse colon Procedures: Surgery Specimen Level IV HEADER OPERATION: Colonoscopy, EGD ([facility] [place]) PRE-OP DIAGNOSIS: GERD, abdominal pain TISSUE SUBMITTED: A - Duodenum biopsy, B - Antrum biopsy, C - Distal esophagus biopsy, D - Mid esophagus biopsy, E - Random colonic biopsies, F - Mid transverse polyp biopsy MICROSCOPIC DIAGNOSIS A. Duodenum, biopsy: Fragments of duodenal mucosa with Columba gland hyperplasia. B. Antrum, biopsy: Mild gastritis. See microscopic description and comment. C. Distal esophagus, biopsy: Fragments of squamous epithelium with minimal chronic inflammation. D. Mid esophagus, biopsy: A fragment of squamous epithelium, no pathologic diagnosis. E. Colon, random biopsy: Fragments of colonic mucosa, no pathologic diagnosis. F. Mid transverse polyp, biopsy: Fragments of colonic mucosa with focal minimal adenomatous changes, consistent with early tubular adenoma. SJ:rg 10/19/20 COMMENT B. The results of immunohistochemistry for Helicobacter pylori will be reported separately ([id number]). MICROSCOPIC DESCRIPTION Slides are reviewed. B. The specimen shows fragments of gastric mucosa with chronic inflammatory cell infiltrates in the lamina propria consisting of lymphocytes and plasma cells, consistent with mild chronic gastritis. GROSS DESCRIPTION A - Received in fixative is one container labeled with the patient's name and designated duodenum biopsy. The specimen consists of two irregular fragments of light mclaughlin soft tissue that in aggregate measure 0.6 x 0.3 x 0.1 cm. The specimen is totally submitted in one cassette. B - Received in fixative is one container labeled with the patient's name and designated antrum biopsy. The specimen consists of one irregular fragment of light mclaughlin soft tissue that measures 0.4 x 0.3 x 0.1 cm. The specimen is totally submitted in one cassette. C - Received in fixative is one container labeled with the patient's name and designated distal esophagus biopsy. The specimen consists of one irregular fragment of light mclaughlin soft tissue that measures 0.2 x 0.2 x 0.1 cm. The specimen is totally submitted in one cassette. D - Received in fixative is one container labeled with the patient's name and designated mid esophagus biopsy. The specimen consists of one irregular fragment of light mclaughlin soft tissue that measures 0.4 x 0.2 x 0.1 cm. The specimen is totally submitted in one cassette. E - Received in fixative is one container labeled with the patient's name and designated random colonic biopsy. The specimen consists of multiple irregular fragments of light mclaughlin soft tissue that in aggregate measure 1 x 0.8 x 0.1 cm. The specimen is totally submitted in one cassette. F - Received in fixative is one container labeled with the patient's name and designated mid transverse polyp biopsy. The specimen consists of two irregular fragments of light mclaughlin soft tissue that in aggregate measure 0.5 x 0.2 x 0.1 cm. The specimen is totally submitted in one cassette. / SJ:rg 10/16/20 TC:3 CPT: 90477 x6
[2020-10-16 10:00] LABS: Internal QC Validated? YES +Cl - CLEAR BKGD; Pregnancy, Urine Negative Negative
[2020-10-16] MEDS: Lactated Ringers 1,000 ML 100 ML IV (10:00)
--- NOTE | 2020-10-16 10:00 | PCM.HP.BLA ---
Problem List (1) GERD (gastroesophageal reflux disease) Status: Chronic (2) Abdominal pain Status: Acute Qualifiers: History and Physical Date of Admission: 10/16/20 Intake Intake Visit Reasons: REFLUX Chief Complaint: abdominal pain [employer] Required: No Accompanied by: Unknown Is patient in pain?: Yes Allergies blueberry [Blueberry] Allergy (Verified 10/14/20 13:31) Anaphylaxis nickel [Nickel] Allergy (Verified 10/14/20 13:31) Hives lactose Adverse Reaction (Verified 10/14/20 13:31) Upset Stomach Medications albuterol sulfate 90 mcg/actuation breath activated powder inhaler 2 inh INHALATION Q4H PRN 10/14/20 [History Confirmed 10/14/20] PFS Medical History (Updated 10/14/20 @ 12:26 by Lin Baldwin) Vitamin D deficiency (Chronic) Frequent headaches (Chronic) History of substance abuse (Acute) H. pylori infection (Acute) GERD (gastroesophageal reflux disease) (Chronic) Heavy menses (Acute) Chronic back pain (Chronic) Scoliosis (Chronic) Seasonal allergies (Chronic) Asthma (Chronic) Abdominal pain (Acute) Depression with anxiety (Acute) Diarrhea (Acute) Nausea and vomiting (Acute) Surgical History History of appendectomy (Acute) History of tonsillectomy (Acute) Family History Aunt Diabetes Colon cancer Grandmother COPD (chronic obstructive pulmonary disease) Heart disease Hypertension Uncle Heart disease Hypertension Myocardial infarction, Onset Age: 40 Father Cancer lung Hypertension Mother Colon cancer Social History (Updated 10/14/20 @ 15:38 by Theodora ANTHONY, PA-C) Smoking Status: Current every day smoker Tobacco: How many years used: 12 alcohol intake: never substance use type: former substance user 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 Rosenthal. Patient presents to the office today for diffuse abdominal pain, nausea, vomiting, diarrhea. Patient states she has had reflux disease since 2009. She has never been placed on PPI medication or other treatment for her reflux. She noted approximately 2 months ago she was prophylactically treated for H Pylori. Patient stated her significant other and her children had tested positive via stool test 2 months ago and were treated. They all live together. Patient stated she had a 14 day course of treatment with 3 different medications. She was never tested for H Pylori. She was also treated for a UTI and asthma exacerbation with steroids and another antibiotic. She noted her H pylori treatment slightly helped her symptoms at that time. These symptoms have since returned. She notes avoiding acidic foods. She states her diet is salads, chicken and hamburger. She notes lack of appetite. She stated she has lost 25 pounds unintentionally. Patient's mother was diagnosed with colon cancer in 1995. She notes her mother had to have chemo and part of her colon removed. Patient's mother is still living. Patient notes her reflux occurs multiple times per day and does not associate only with food. She denies feeling better with food. She will occasionally take Pepto Bismol at bedtime which does not help much. She notes occasional BRBPR and dark stools. She notes her abdominal pain is worse in her RUQ and sternal area and will radiate around in the left lower back. Patient's PCP order a RUQ u/s and HIDA scan. She had CBC, CMP which were noted for slight decrease in hemoglobin otherwise unremarkable. Imaging results are as follows: STUDY: ABDOMINAL ULTRASOUND - RIGHT UPPER QUADRANT REASON FOR VISIT: Female, 30 years old REFLUX -- RIGHT AND EPIGASTRIC PAIN X 2 YEARS TECHNIQUE: Ultrasound evaluation of the right upper quadrant was performed with real-time and static antunez-scale imaging. TECHNICAL QUALITY: Adequate. COMPARISON: None. FINDINGS: Liver: The liver measures 17.5 cm. There is increased echogenicity consistent with fatty infiltration. The bile ducts are within normal limits. There is hepatic color flow. The direction of portal flow is hepatopetal. There is no demonstrated mass lesion. Gallbladder: Normal distended gallbladder. The gallbladder wall measures 2.8 mm. There is a negative sonographic Sheehan''s sign. There is no pericholecystic fluid. There are no gallstones. Common Bile Duct (C.B.D.): The common bile duct measures 3 mm. Pancreas: Normal size of the head, body and tail of the pancreas. There is normal echogenicity of the pancreas. There is no demonstrated pancreatic mass or cyst. Right Kidney: Normal size of the right kidney. The right kidney measures 10.1 cm x 6.6 cm x 4.7 cm. Normal renal cortex. The right cortex measures 1.6 cm. There is no demonstrated renal mass or cyst. There is no right hydronephrosis. US/Abdomen Limited IMPRESSION: Mild degree of fatty infiltration of the liver. RADIONUCLIDE HEPATOBILIARY SCINTIGRAPHY COMPARISON: Abdominal ultrasound report 10/09/2020 FINDINGS: Following the intravenous administration of 5.3 mCi of 99m Tc Mebrofenin, hepatobiliary images reveal: 1. Relatively prompt and homogeneous radiopharmaceutical concentration is noted by a normal sized liver. No parenchymal defects are identified. 2. Gallbladder activity is identified at 10 minutes post radiopharmaceutical administration. 3. Small intestinal tract is not visualized during 60 minutes of pre-CCK sequential imaging. Small bowel activity is identified following the administration of cholecystokinin. 4. Washout of the radiopharmaceutical by the hepatic parenchyma appears qualitatively normal. Cholecystokinin (0.02 ug/kg) was administered intravenously over a 30-minute period. The post CCK gallbladder ejection fraction calculated at 16 minutes following Cholecystokinin administration was noted to be 38.0 % (normal greater than 35%). During 30 minutes of post CCK imaging, there is no scintigraphic evidence of reflux of the radiotracer into the common hepatic duct or refilling of the gallbladder. NM/Hepatobilliary Img w/Pharm Int IMPRESSION: 1. NORMAL 99m Tc Mebrofenin hepatobiliary imaging examination with Cholecystokinin. A. A gallbladder ejection fraction calculated to be greater than 35% following the administration of Cholecystokinin makes the probability of functional hepatobiliary disease (gallbladder and/or sphincter of Oddi dyskinesia) and/or organic hepatobiliary disease (chronic acalculous cholecystitis and/or cystic duct syndrome) to be low. (Radha Perez al, Journal of Nuclear Medicine 32:1695, 1991). ROS General General: Yes weight change and fatigue; no appetite, colon cancer, breast cancer or weakness HEENT HEENT: Yes difficulty swallowing; no eye injury, eye surgery, swollen glands or hoarseness Endo Endocrine: No thyroid disease, diabetes mellitus, thyroid cancer, Hair loss, heat intolerance or cold intolerance Skin Skin: Yes rash; no changing moles Breast Breast: No left breast lump, right breast lump, nipple discharge, breast pain, abnormal mammogram, abnormal US or breast enlargement Musc Musculoskeletal: Yes back problems; no arthritis, rheumatoid arthritis, gout or joint pain Cardio Cardiovascular: Yes murmur and high blood pressure; no pacemaker, heart disease, atrial fibrillation, heart attack, heart stent, palpitations, shortness of breat with exertion or chest pain Psych Psychiatric: Yes depression and anxiety; no hearing voices Resp Respiratory: Yes shortness of breath, Yes sleep apnea, Yes cough, No COPD, Yes asthma, No emphysema, No wheezing Gastro Gastrointestinal: Yes abdominal pain, Yes nausea or vomiting, Yes diarrhea, No constipation, No blood in stool, Yes acid reflux, No hemorrhoids, No ulcers, Yes gallbladder problem, Yes black,tarry stools Florencio Hematologic: No blood thinners, No blood disorders, No bleeding, No anemia, No blood clots Neuro Neurologic: No system reviewed and no additional complaints, except as docu, No as per HPI, No abnormal walking, No abnormal hearing, No abnormal movements, No abnormal speech, No behavioral changes, No burning sensations, No confusion, No seizure-like activity, No unsteadiness, No dizziness, No localized weakness, No frequent falls, No headache(s), No lack of coordination, No loss of vision, No memory loss, Yes numbness, No other visual disturbances, No radiating pain, No restless legs, No sensory deficit, No fainting, Yes tingling, No tremor(s), No weakness, No other Exam Const General: cooperative, healthy appearing, comfortable, no acute distress [facility] Head: normal to inspection Eyes General: appearance normal, both eyes and all related structures Neck Neck: normal visual inspection Neck mass: No Chest Breast Palpation: No nipple discharge Resp Effort & Inspection: normal respiratory effort Auscultation: clear to auscultation bilaterally Cardio Rate: regular rate Rhythm: regular rhythm Heart Sounds: murmur GI Inspection: obesity Palpation: soft, guarding Auscultation: normal bowel sounds Other: Patient with abdominal pain to palpation out of proportion, guarding, wincing Skin General: no rashes or lesions noted Neuro General: no focal motor deficits, CN's II-XI intact bilaterally Extrem General: normal to inspection Psych Appearance: grossly normal Affect: normal affect Assessment & Plan Problems 1. Epigastric pain R10.13 2. Diarrhea, unspecified type R19.7 3. Nausea and vomiting, intractability of vomiting not specified, unspecified vomiting type R11.2 4. Weight loss R63.[address] Rosenthal also evaluated this patient. Dr. Rosenthal will plan to perform an upper and lower scope with multiple biopsies with MAC. Evaluation for eosinophilic esophagitis, H pylori, microscopic collagenous colitis will be biopsied for. Procedure details, risks and benefits were discussed with the patient. Patient has had the opportunity to ask and have questions answered. Patient verbally understands and agrees with the plan. Patient was under the impression from her PCP's office that she was being evaluated for a diseased gallbladder with possible removal of the gallbladder. Unfortunately with essentially normal testing and labs and her symptoms not technically specific to gallbladder. We have discussed this with patient. We will proceed with the upper/lower scopes as scheduling is permitted. She will utilize Miralax prep for the colonoscopy. Orders Orders: Colonoscopy Today EGD Today Coding Level of Care Code 06064 Diagnoses Epigastric pain R10.13 ??Abdominal location: epigastric Diarrhea, unspecified type R19.7 ??Diarrhea type: unspecified type Nausea and vomiting, intractability of vomiting not specified, unspecified vomiting type R11.2 ??Vomiting type: unspecified ??Vomiting Intractability: unspecified Weight loss R63.4 I have re-examined the patient. There are no clinical changes since date of exam. Procedure Criteria Procedure Type: Elective COVID Risk Discussion: The surgeon/proceduralist and patient have discussed in detail the risk of exposure to and/or potential harm posed by the COVID-19 virus with having a surgery/procedure at this time versus the risk of delaying the surgery/procedure. It is not possible to know either the risk of delaying the surgery or procedure or chance of getting an infection with perfect accuracy, but a joint decision was made between the patient and the surgeon/proceduralist to proceed at this time with the scheduled surgery/procedure as indicated on the consent form.
--- NOTE | 2020-10-16 10:30 | IMM_PTH ---
PATIENT: LUCIANO MITCHELL LOC: EN U#:[id number] AGE/SX: 30/F ROOM: RE10/16/[address]: Dr. Roddy Rosenthal MD : 1990 BED: DIS: 10/16/2020 SPEC #: [id number] RECD: 10/16/20 15:27 STATUS: ALVAREZ REZeke #: [id number] XANDER: 10/16/20 10:[address]: Roddy Rosenthal DEPT: IMMUNOHISTOCHEMISTRY RECD BY: Gregoria Borja ENTERED: 10/16/20 15:27 SP TYPE: IMMUNO OTHR DR: Dr. Pebbles Joy MD Tissues: B - Stomach, NOS Procedures: H Pylori (initial) PHYSICIAN & INSTITUTION [place] [id number] SPECIMEN INFORMATION: Tissue Source: B - Antrum biopsy Clinical Info: GERD, abdominal pain Specimen Number: [id number] CPT code: 64056 METHODOLOGY: Deparaffinized sections of prefer/formalin-fixed tissue or PAP/DQ stained slides are incubated with monoclonal/polyclonal antibodies/oligonucleotide probes. Localization is made via biotin free immunoperoxidase method. Appropriate controls are performed and reacted as expected. Results on target cell population are indicated in the following table: RESULTS: ANTIBODY / CLONE RESULT Block B H Pylori (polyclonal) negative These tests were developed and their performance characteristics determined by [facility]. They may not have been cleared or approved by the U.S. Food and Drug Administration. The FDA has determined that such clearance or approval is not necessary. The above immunohistochemical/dualISH markers are ordered and reviewed by the Pathologist. INTERPRETATION: B. Antrum, biopsy: Negative for Helicobacter pylori organisms. SJ:pratibha 10/19/2020
--- NOTE | 2020-10-16 11:19 | OP.EGD_ITS ---
Patient Name: Radha Bowman Procedure Date: 10/16/2020 10:36 AM Date of : 1990 Age: 30 Procedure: Upper GI endoscopy Indications: Epigastric abdominal pain Providers: Roddy Rosenthal MD Referring MD: Pebbles Joy Medicines: See the Anesthesia note for documentation of the administered medications Complications: No immediate complications. Procedure: Pre-Anesthesia Assessment: - Prior to the procedure, a History and Physical was performed, and patient medications and allergies were reviewed. The patient's tolerance of previous anesthesia was also reviewed. The risks and benefits of the procedure and the sedation options and risks were discussed with the patient. All questions were answered, and informed consent was obtained. Prior Anticoagulants: The patient has taken no previous anticoagulant or antiplatelet agents. ASA Grade Assessment: III - A patient with severe systemic disease. After reviewing the risks and benefits, the patient was deemed in satisfactory condition to undergo the procedure. After obtaining informed consent, the endoscope was passed under direct vision. Throughout the procedure, the patient's blood pressure, pulse, and oxygen saturations were monitored continuously. The gastroscope was introduced through the mouth, and advanced to the second part of duodenum. The upper GI endoscopy was accomplished without difficulty. The patient tolerated the procedure well. Scope In: 10:50:17 AM Scope Out: 10:57:35 AM Total Procedure Duration Time 0 hours 7 minutes 18 seconds Findings: LA Grade A (one or more mucosal breaks less than 5 mm, not extending between tops of 2 mucosal folds) esophagitis with no bleeding was found 40 cm from the incisors. Biopsies were taken with a cold forceps for histology. A small hiatal hernia was present. The mid esophagus was normal. Biopsies were taken with a cold forceps for histology. Diffuse mildly erythematous mucosa without bleeding was found in the gastric antrum. Biopsies were taken with a cold forceps for histology. Diffuse mildly erythematous mucosa without active bleeding and with no stigmata of bleeding was found in the duodenal bulb. Biopsies were taken with a cold forceps for histology. Impression: - LA Grade A reflux esophagitis. Biopsied. - Small hiatal hernia. - Normal mid esophagus. Biopsied. - Erythematous mucosa in the antrum. Biopsied. - Erythematous duodenopathy. Biopsied. Recommendation: - Discharge patient to home. - Resume previous diet. - Continue present medications. - Telephone my office for pathology results in 1 week. - Use Prilosec (omeprazole) 40 mg PO daily. Procedure Code(s): --- Professional --- 83678, Esophagogastroduodenoscopy, flexible, transoral; with biopsy, single or multiple Diagnosis Code(s): --- Professional --- K21.0, Gastro-esophageal reflux disease with esophagitis K44.9, Diaphragmatic hernia without obstruction or gangrene K31.89, Other diseases of stomach and duodenum R10.13, Epigastric pain CPT copyright 2017 [employer]. All rights reserved. The codes documented in this report are preliminary and upon client services representative review may be revised to meet current compliance requirements. Roddy Rosenthal MD 10/16/2020 11:19:13 AM This report has been signed electronically. Number of Addenda: 0 Note Initiated On: 10/16/2020 10:36 AM
--- NOTE | 2020-10-16 11:19 | OP.CCLET_ITS ---
10/16/2020 Pebbles Joy [facility] [address] [place] [address] Re : Upper GI endoscopy procedure for Radha Bowman Dear Dr. Joy This procedure was performed on Friday, October 16, 2020. My impressions and recommendations are as follows: Impressions : - LA Grade A reflux esophagitis. Biopsied. - Small hiatal hernia. - Normal mid esophagus. Biopsied. - Erythematous mucosa in the antrum. Biopsied. - Erythematous duodenopathy. Biopsied. Recommendations : - Discharge patient to home. - Resume previous diet. - Continue present medications. - Telephone my office for pathology results in 1 week. - Use Prilosec (omeprazole) 40 mg PO daily. My findings are described in the full procedure note, which is enclosed. If I can be of further assistance, please feel free to contact me at Doctor phone number(s): Work: . Sincerely, Roddy Rosenthal MD 10/16/2020 11:19:13 AM This report has been signed electronically.
--- NOTE | 2020-10-16 11:23 | OP.COLON_ITS ---
Patient Name: Radha Bowman Procedure Date: 10/16/2020 10:58 AM Date of : 1990 Age: 30 Procedure: Colonoscopy Indications: Epigastric abdominal pain Providers: Roddy Rosetnhal MD Referring MD: Pebbles Joy Medicines: See the Anesthesia note for documentation of the administered medications Patient Profile: Last Colonoscopy: none. The patient's first colonoscopy is today. Complications: No immediate complications. Procedure: Pre-Anesthesia Assessment: - Prior to the procedure, a History and Physical was performed, and patient medications and allergies were reviewed. The patient's tolerance of previous anesthesia was also reviewed. The risks and benefits of the procedure and the sedation options and risks were discussed with the patient. All questions were answered, and informed consent was obtained. Prior Anticoagulants: The patient has taken no previous anticoagulant or antiplatelet agents. ASA Grade Assessment: III - A patient with severe systemic disease. After reviewing the risks and benefits, the patient was deemed in satisfactory condition to undergo the procedure. After I obtained informed consent, the scope was passed under direct vision. Throughout the procedure, the patient's blood pressure, pulse, and oxygen saturations were monitored continuously. The adult colonoscope was introduced through the anus and advanced to the cecum, identified by appendiceal orifice and ileocecal valve. The colonoscopy was performed without difficulty. The patient tolerated the procedure well. The quality of the bowel preparation was good. The ileocecal valve and the appendiceal orifice were photographed. Scope In: 11:00:00 AM Scope Withdrawal Time 0 hours 7 minutes 21 seconds Scope Out: 11:11:53 AM Total Procedure Duration Time 0 hours 11 minutes 53 seconds Findings: lax tone A 3 mm polyp was found in the mid transverse colon. The polyp was sessile. The polyp was removed with a cold biopsy forceps. Resection and retrieval were complete. The colon (entire examined portion) appeared normal. Biopsies for histology were taken with a cold forceps from the entire colon for evaluation of microscopic colitis. Impression: - One 3 mm polyp in the mid transverse colon, removed with a cold biopsy forceps. Resected and retrieved. - The entire examined colon is normal. Biopsied. Recommendation: - Discharge patient to home. - Resume previous diet. - Continue present medications. - Repeat colonoscopy in 10 years for screening purposes. - Telephone my office for pathology results in 1 week. Procedure Code(s): --- Professional --- 85140, Colonoscopy, flexible; with biopsy, single or multiple Diagnosis Code(s): --- Professional --- D12.3, Benign neoplasm of transverse colon (hepatic flexure or splenic flexure) R10.13, Epigastric pain CPT copyright 2017 [employer]. All rights reserved. The codes documented in this report are preliminary and upon director advanced review may be revised to meet current compliance requirements. Roddy Rosenthal MD 10/16/2020 11:23:13 AM This report has been signed electronically. Number of Addenda: 0 Note Initiated On: 10/16/2020 10:58 AM
--- NOTE | 2020-10-16 11:23 | OP.CCLET_ITS ---
10/16/2020 Pebbles Joy [facility] [address] [place] [address] Re : Colonoscopy procedure for Radha Bowman Dear Dr. Joy This procedure was performed on Friday, October 16, 2020. My impressions and recommendations are as follows: Impressions : - One 3 mm polyp in the mid transverse colon, removed with a cold biopsy forceps. Resected and retrieved. - The entire examined colon is normal. Biopsied. Recommendations : - Discharge patient to home. - Resume previous diet. - Continue present medications. - Repeat colonoscopy in 10 years for screening purposes. - Telephone my office for pathology results in 1 week. My findings are described in the full procedure note, which is enclosed. If I can be of further assistance, please feel free to contact me at Doctor phone number(s): Work: . Sincerely, Roddy Rosenthal MD 10/16/2020 11:23:13 AM This report has been signed electronically.
== END 2020-10-16 12:09 | disposition home or self-care (01) ==
LOC: EN 09:23 → AC 09:24
PROVIDERS: Anesthesiology; PCP Internal Medicine; Referring Provider Internal Medicine; Visit Provider Surgery
PROC: 0DJD8ZZ Inspection of Lower Intestinal Tract, Via Natural or Artificial Opening Endoscopic (ICD-10-PCS; CPT 45378; principal; 2020-10-16 10:25)
DX: K21.00 Gastro-esophageal reflux disease with esophagitis, without bleeding (principal); Z20.828 Contact with and (suspected) exposure to other viral communicable diseases; M41.9 Scoliosis, unspecified; J45.909 Unspecified asthma, uncomplicated; F17.200 Nicotine dependence, unspecified, uncomplicated; Z80.0 Family history of malignant neoplasm of digestive organs; R19.7 Diarrhea, unspecified; R11.2 Nausea with vomiting, unspecified; K44.9 Diaphragmatic hernia without obstruction or gangrene; K31.89 Other diseases of stomach and duodenum; D12.3 Benign neoplasm of transverse colon; K29.70 Gastritis, unspecified, without bleeding
CPT/HCPCS: 43239; 45380; 81025; 87426; 88305; 88342; C9803; J7120; J2405

== ENCOUNTER → 2020-10-29 13:43 | Outpatient (CLI) | payer MEDICAID, SELFPAY ==
[2020-10-29 08:22] VITALS: BMI 37.9
[2020-11-03 20:42] LABS: HPV APTIMA, High Risk Negative (Negative)
== END ==
PROVIDERS: PCP Internal Medicine; Referring Provider Obstetrics & Gynecology; Visit Provider Obstetrics & Gynecology
DX: Z12.4 Encounter for screening for malignant neoplasm of cervix (principal)
CPT/HCPCS: 87624; 88175; G0145

== ENCOUNTER → 2020-11-04 12:35 | Outpatient (CLI) | payer MEDICAID, SELFPAY ==
[2020-10-29 08:22] VITALS: BMI 37.9
--- NOTE | 2020-11-04 12:37 | US_ITS ---
STUDY: ULTRASOUND OF THE FEMALE PELVIS - COMPLETE REASON FOR EXAM: Female, 30 years old. AUB LMP: 10/30/2020. TECHNIQUE: Transabdominal. The patient refused transvaginal examination. TECHNICAL QUALITY: Adequate. COMPARISON: None. FINDINGS: The uterus is anteflexed and is tilted to the right side of the pelvis. The uterus measures 7.7 cm x 4.9 cm x 6.4 cm. Normal uterine cervix. The endometrium measures 7 mm in thickness, and is fluid distended. There is no demonstrated endometrial mass. There is no demonstrated myometrial mass. I.U.D. - The patient does not have an I.U.D. The right ovary is visualized. The right ovary measures 4.3 cm x 2.5 cm x 2.4 cm. There is no right ovarian cyst or ovarian mass. There is no visualized right adnexal mass or complex lesion. There is normal arterial and normal venous vascularity. The left ovary is visualized. The left ovary measures 1.3 cm x 2.3 cm x 2.4 cm. There is no left ovarian cyst or ovarian mass. There is no visualized left adnexal mass or complex lesion. There is normal arterial and normal venous vascularity. There is no fluid in the cul-de-sac. The pre void volume of the bladder was 23 ml. Polycystic ovary disease: No. US/Pelvic (Non ) IMPRESSION: Fluid distention of the endometrium. Electronically Signed: Robert Woodard MD at 15:19 EDT , Service support ,
== END ==
PROVIDERS: PCP Internal Medicine; Referring Provider Obstetrics & Gynecology; Visit Provider Obstetrics & Gynecology
DX: N93.9 Abnormal uterine and vaginal bleeding, unspecified (principal)
CPT/HCPCS: 76856

== ENCOUNTER 2021-07-10 11:42 | Emergency (ER) | payer MEDICAID, SELFPAY ==
[2021-07-10 11:43] VITALS: BP 139/92; PULSE 75; RESP 16; TEMP 35.9; O2SAT 99; BMI 35.4
--- NOTE | 2021-07-10 12:18 | RAD_ITS ---
STUDY: X-RAY CHEST REASON FOR EXAM: Female, 31 years old. Cough sore throat weakness nausea and diarrhea TECHNIQUE: Frontal portable view of the chest COMPARISON: and July 2020 FINDINGS: The lungs are clear and expanded. There is no demonstrated pleural abnormality. Normal size heart. Normal mediastinum and jorge. Normal visualized pulmonary arteries. Normal visualized aortic arch and descending thoracic aorta. Normal visualized thoracic spine. Normal visualized ribs, clavicles, and shoulders. There is no demonstrated abnormality of the visualized soft tissue structures of the upper abdomen. RAD/Chest 1 View (Portable) IMPRESSION: Normal x-ray examination of the chest. Electronically Signed: Vandana Euceda MD at 13:23 EST Tel , Service support ,
--- NOTE | 2021-07-10 12:21 | EX.ED.VIS.UR ---
HPI HPI - URI History of Present Illness Chief Complaint: Sore Throat Informant: patient Onset/Context/Timing Onset: Weeks (1) Context: Gradual Onset Timing: Continuous Quality: Aching Location: Generalized Worsened by: - (Smoking) Relieved by: - (Nothing) Associated Symptoms Associated Symptoms: Positive for Nasal Congestion, Nausea, Vomiting, Diarrhea and Productive Cough; Negative for Hemoptysis Narrative Narrative: Patient presents with sore throat and cough for the past week. Patient states it is gradually getting worse. Patient states that today she started having some nausea, vomiting, and diarrhea. Patient states she is coughing up some yellow sputum. Patient also admits to some rhinorrhea and subjective chills. Patient states she has some sharp pain in her right lower chest. Patient admits to some neck and upper back pain. ROS ROS ED Constitutional Constitutional ED: Denies chills or fever(s) Eyes Eyes: Denies blurry vision or change in vision ENT ENT ED: Denies rhinorrhea or sore throat Cardiovascular Cardiovascular: Reports chest pain; Denies palpitations Respiratory/Chest Respiratory/Chest: Reports cough and dyspnea Gastrointestinal Gastrointestinal: Reports diarrhea, nausea and vomiting Genitourinary Genitourinary ED: Denies dysuria or hematuria Musculoskeletal Musculoskeletal: Reports back pain and neck pain Integumentary Denies abscess or rash Neurologic Neurologic: Reports weakness; Denies headache(s) Allergic/Immunologic Allergic/Immunologic ED: Denies mouth swelling or urticaria PFSH PFSH Medical History Abdominal pain Asthma Chronic back pain Depression with anxiety Diarrhea Frequent headaches GERD (gastroesophageal reflux disease) H. pylori infection Heavy menses History of substance abuse Nausea and vomiting Scoliosis Seasonal allergies Vitamin D deficiency Home Medications albuterol sulfate 90 mcg/actuation breath activated powder inhaler 2 inh INHALATION Q4H PRN 10/14/20 [History Last Taken Unknown] omeprazole 40 mg capsule,delayed release 40 mg PO DAILY #90 capsule. 12/31/20 [Rx Last Taken Unknown] Allergy/AdvReac Type Severity Reaction Status Date / Time blueberry [Blueberry] Allergy Anaphylaxis Verified 07/10/21 11:45 nickel [Nickel] Allergy Hives Verified 07/10/21 11:45 lactose AdvReac Upset Verified 07/10/21 11:45 Stomach Family History Aunt Diabetes Colon cancer Grandmother COPD (chronic obstructive pulmonary disease) Heart disease Hypertension Uncle Heart disease Hypertension Myocardial infarction, Onset Age: 40 Father Cancer lung Hypertension Mother Colon cancer Surgical History History of appendectomy History of tonsillectomy Social History Smoking Status: Current every day smoker tobacco type: cigarettes Tobacco: How many years used: 12 alcohol intake: never substance use type: former substance user Date of last use: 08/21/2013 and methamphetamine caffeine: No what type of physical activity do you participate in: walking seatbelt use: always do you feel safe at home: Yes additional social history: Engaged-Leigha EXAM Physical Exam Const Vital Signs: 07/10/21 11:43 Temperature 96.7 F L Temperature Source Temporal Pulse Rate 75 Respiratory Rate 16 Blood Pressure 139/92 H Blood Pressure Mean 107 Pulse Ox 99 Oxygen Delivery Method Room Air Positive well nourished, well developed and obese General Appearance ED: well developed Nutritional Appearance: obese HEENT Reports moist mucous membranes Throat: posterior oropharynx normal Neck supple and no JVD Resp normal respiratory effort and clear to auscultation bilaterally Cardio regular rate, regular rhythm and no murmurs Rate: regular rate Rhythm: regular rhythm GI normal to inspection, nondistended, normoactive bowel sounds and non-tender Palpation: soft Extremity normal to inspection General Extremety ED: Negative for edema or tenderness General Extremity: Negative for edema Neuro oriented x3, CN's II-XII intact bilaterally and no sensory deficits noted Sensorium / Orientation: alert Motor Exam: strength 5/5 throughout Psych mental status grossly normal Skin no rashes or lesions noted MDM MDM MDM Narrative Medical decision making narrative: Patient was given IV fluids. CBC and comprehensive metabolic profile were within normal limits. Portable 1 view chest x-ray was obtained. On my interpretation, lung sow are clear. There is normal cardiac silhouette. Bony thorax is normal. There is no acute process noted. Radiologist also interpreted the x-ray and agrees. COVID-19 rapid antigen was obtained and was negative. Influenza swabs were obtained and were negative. Rapid strep was obtained and was negative. Patient was advised of her findings. Patient was advised that this is a viral illness. Patient was instructed drink plenty of fluids. Patient was instructed to follow-up with her primary care physician in 3 to 5 days. Patient understood and was agreeable with the plan. All questions were answered. Lab Data Attestation: I reviewed the patient's lab results. Labs: Laboratory Results - last 24 hr 07/10/21 07/10/21 12:45 12:45 WBC 8.0 RBC 4.47 Hgb 11.4 L Hct 35.9 L MCV 80.3 L MCH 25.5 L MCHC 31.8 L RDW Std Deviation 46.3 H RDW Coeff of Ankit 15.9 H Plt Count 382 MPV 9.5 Immature Gran % (Auto) 0.300 Neut % (Auto) 50.9 Lymph % (Auto) 26.5 Wilson % (Auto) 13.6 H Eos % (Auto) 7.4 H Baso % (Auto) 1.3 H Absolute Neuts (auto) 4.1 Absolute Lymphs (auto) 2.11 Nucleated RBC % 0 Sodium 139 Potassium 4.8 Chloride 111 H Carbon Dioxide 24.0 Anion Gap 4 L BUN 14 Creatinine 0.85 Estim Creat Clear Calc 100.22 Est GFR (MDRD) Af Amer 100 Est GFR (MDRD) Non-Af 83 BUN/Creatinine Ratio 16.4 Glucose 92 Calcium 8.7 Total Bilirubin 0.60 AST 32 ALT 21 Alkaline Phosphatase 80 Total Protein 7.8 Albumin 3.3 Globulin 4.5 H Albumin/Globulin Ratio 0.7 L Radiography Chest X-Ray - ED: 1 View, Read by ED Physician, Read by Radiologist and Normal Diagnostic Testing: Clinical Impression(s) from Imaging Studies Chest X-Ray 07/10/21 12:18 IMPRESSION: Normal x-ray examination of the chest. Electronically Signed: Vandana Euceda MD at 13:23 EST Tel , Service support , Discharge Plan Triage Chief Complaint: Sore Throat ED Provider: Harshil Lozano Dx/Rx/DC Orders Clinical Impression: Viral respiratory illness Instructions: ED Viral Syndrome (Adult) Prescriptions: No Action albuterol sulfate 90 mcg/actuation aerosol powdr breath activated 2 inh INHALATION Q4H PRN (Reason: Sob &/Or Wheezing) RF: 0 omeprazole 40 mg capsule,delayed release(DR/EC) 40 mg PO DAILY Qty: 90 RF: 1 Primary Care Provider: Pebbles Joy Referrals: Pebbles Joy MD [Primary Care Provider] - 3-5 Days Disposition Disposition: Home, Self Care
[2021-07-10 12:54] LABS: Absolute Lymphocyte Count 2.11 X10^3/uL (0.83-4.51); Absolute Neutrophil Count 4.1 X10^3/uL (2.0-7.7); Basophil% 1.3 % (0-1); Eosinophil# 0.59 X10^3/uL; Eosinophils% 7.4 % (0-5); Hematocrit 35.9 % (37-47); Hemoglobin 11.4 g/dL (12.0-15.0); Lymphocyte # 2.11 X10^3/ul (0.83-4.51); Lymphocyte % 26.5 % (19-41); Mean Corp Hgb Conc 31.8 g/dL (32-36); Mean Corpuscular Hgb 25.5 pg (27.0-32.0); Mean Corpuscular Volume 80.3 fL (81-99); Mean Platelet Vol. 9.5 fl (6.2-12.0); Monocyte# 1.08 X10^3/uL; Monocyte% 13.6 % (0-10); NRBC Flagged by Analyzer 0 % (0-5); Neutrophil # 4.06 X10^3/uL (2.7-7.7); Neutrophil % 50.9 % (47-70); Platelet Count 382 K/mm3 (150-450); RBC Distribution Width CV 15.9 % (11.6-14.6); RBC Distribution Width SD 46.3 fl (35.1-43.9); Red Blood Count 4.47 M/mm3 (4.2-5.4)
[2021-07-10 13:23] LABS: ALB/GLOB Ratio 0.7 RATIO (0.9-2.4); AST(SGOT) 32 U/L (15-37); Alanine Aminotransfer ALT/SGPT 21 U/L (13-56); Albumin, Serum 3.3 g/dL (3.2-5.0); Alkaline Phosphatase 80 U/L (45-117); Anion Gap 4 (5-15); BUN 14 mg/dL (7-18); BUN/Creat Ratio 16.4 RATIO (10-20); Calcium,Total 8.7 mg/dL (8.5-10.1); Chloride 111 mmol/L (98-107); Creatinine, Serum 0.85 mg/dL (0.55-1.02); EST Glomerular Filtration Rate 83 mL/min (>60); Est Glom Filt Rate - Afr Amer 100 mL/min (>60); Estimated Creatinine Clearance 100.22 ml/min; Globulin 4.5 g/dL (2.2-4.2); Glucose 92 mg/dL (74-106); Potassium 4.8 mmol/L (3.5-5.1); Protein, Total 7.8 g/dL (6.4-8.2); Sodium Level 139 mmol/L (136-145)
[2021-07-10 14:43] VITALS: BP 133/69; PULSE 58; RESP 15
== END 2021-07-10 14:44 | disposition home or self-care (01) ==
PROVIDERS: Emergency Provider Emergency Medicine; PCP Internal Medicine
DX: J98.8 Other specified respiratory disorders (principal); E66.9 Obesity, unspecified; F17.210 Nicotine dependence, cigarettes, uncomplicated
CPT/HCPCS: 71045; 80053; 85025; 87426; 87804; 87880; 99283; J7040; A4216

== ENCOUNTER 2021-08-20 04:45 | Emergency (ER) | payer MEDICAID, SELFPAY ==
[2021-08-20 04:46] VITALS: BP 152/84; PULSE 101; RESP 20; TEMP 37.2; O2SAT 95; BMI 39.2
[2021-08-20 04:50] VITALS: BP 152/84; PULSE 97; RESP 20; TEMP 37.2; O2SAT 95
--- NOTE | 2021-08-20 04:57 | RAD_ITS ---
STUDY: X-RAY CHEST REASON FOR EXAM: Female, 31 years old. cough TECHNIQUE: Single AP portable view of the chest. COMPARISON: None. FINDINGS: The lungs are clear and expanded. There is no demonstrated pleural abnormality. Normal size heart. Normal mediastinum and jorge. Normal visualized pulmonary arteries. Normal visualized aortic arch and descending thoracic aorta. Normal visualized thoracic spine. Normal visualized ribs, clavicles, and shoulders. There is no demonstrated abnormality of the visualized soft tissue structures of the upper abdomen. RAD/Chest 1 View (Portable) IMPRESSION: Normal x-ray examination of the chest. Electronically Signed: Derrick Slaughter MD at 6:07 EST Tel , Service support ,
--- NOTE | 2021-08-20 04:58 | EX.ED.DYSGE1 ---
HPI History of Present Illness Chief Complaint: General Illness Informant: patient Onset/Context/Timing Onset: Yesterday Context: Gradual Onset Current Severity: Moderate Maximum Severity: Moderate Narrative Narrative: Patient presents secondary to short of breath, cough, dizziness, vomiting. She states has had a headache for several days. Yesterday at work she started feeling as if she was running a fever, had body aches, felt dizzy and developed shortness of breath with cough. She is bringing up yellow to green-colored sputum. She had difficulty sleeping overnight. She woke up early this morning vomiting. She is concerned that she may have Covid. She is unvaccinated. [facility] Medical History Abdominal pain Asthma Chronic back pain Depression with anxiety Diarrhea Frequent headaches GERD (gastroesophageal reflux disease) H. pylori infection Heavy menses History of substance abuse Nausea and vomiting Scoliosis Seasonal allergies Vitamin D deficiency Home Medications albuterol sulfate 90 mcg/actuation breath activated powder inhaler 2 inh INHALATION Q4H PRN 10/14/20 [History Last Taken Unknown] ondansetron 4 mg PO Q8H PRN #10 tab 08/20/21 [Rx Last Taken Unknown] Allergy/AdvReac Type Severity Reaction Status Date / Time blueberry [Blueberry] Allergy Anaphylaxis Verified 08/20/21 04:51 nickel [Nickel] Allergy Hives Verified 08/20/21 04:51 lactose AdvReac Upset Verified 08/20/21 04:51 Stomach Family History Aunt Diabetes Colon cancer Grandmother COPD (chronic obstructive pulmonary disease) Heart disease Hypertension Uncle Heart disease Hypertension Myocardial infarction, Onset Age: 40 Father Cancer lung Hypertension Mother Colon cancer Surgical History History of appendectomy History of tonsillectomy Social History Smoking Status: Current every day smoker tobacco type: cigarettes Tobacco: How many years used: 12 alcohol intake: never substance use type: former substance user Date of last use: 08/21/2013 and methamphetamine caffeine: No what type of physical activity do you participate in: walking seatbelt use: always do you feel safe at home: Yes additional social history: Engaged-Leigha NGUYEN ROS ED Constitutional Constitutional ED: Reports fever(s) and subjective; Denies chills Eyes Eyes: Denies change in vision ENT ENT ED: Denies sore throat Cardiovascular Cardiovascular: Denies chest pain Respiratory/Chest Respiratory/Chest: Reports cough, dyspnea and sputum Gastrointestinal Gastrointestinal: Reports nausea and vomiting; Denies abdominal pain or diarrhea Genitourinary Genitourinary ED: Denies dysuria Musculoskeletal Musculoskeletal: Reports myalgias; Denies back pain Integumentary Denies rash Neurologic Neurologic: Reports headache(s); Denies weakness Allergic/Immunologic Allergic/Immunologic ED: Denies urticaria EXAM Physical Exam Const Vital Signs: 08/20/21 04:46 08/20/21 04:50 Temperature 98.9 F 98.9 F Temperature Source Oral Oral Pulse Rate 101 H 97 Respiratory Rate 20 H 20 H Respiratory Effort Short of Breath Respiratory Pattern Tachypnea Blood Pressure 152/84 H 152/84 H Blood Pressure Mean 106 106 Pulse Ox 95 95 Oxygen Delivery Method Room Air Room Air Positive well nourished and well developed General Appearance ED: well developed HEENT Reports moist mucous membranes Eyes PERRL and EOMs intact bilaterally Neck supple Chest Wall inspection of chest normal and palpation of chest normal Resp normal respiratory effort and clear to auscultation bilaterally Cardio regular rate and regular rhythm GI non-tender Auscultation: hypoactive bowel sounds Palpation: soft Extremity normal to inspection Neuro oriented x3 Sensorium / Orientation: alert Psych mental status grossly normal Skin no rashes or lesions noted MDM MDM MDM Narrative Medical decision making narrative: Patient was given Toradol and Zofran. Lab work, chest x-ray, Covid swab obtained. Lab Data Attestation: I reviewed the patient's lab results. Labs: Laboratory Results - last 24 hr 08/20/21 08/20/21 04:53 04:53 WBC 7.0 RBC 4.48 Hgb 11.5 L Hct 36.6 L MCV 81.7 MCH 25.7 L MCHC 31.4 L RDW Std Deviation 45.4 H RDW Coeff of Ankit 15.0 H Plt Count 325 MPV 9.5 Immature Gran % (Auto) 0.400 Neut % (Auto) 67.3 Lymph % (Auto) 8.3 L Stanley % (Auto) 19.4 H Eos % (Auto) 3.6 Baso % (Auto) 1.0 Absolute Neuts (auto) 4.7 Absolute Lymphs (auto) 0.58 L Nucleated RBC % 0 Sodium 134 L Potassium 3.8 Chloride 105 Carbon Dioxide 22.0 Anion Gap 7 BUN 13 Creatinine 1.00 Estim Creat Clear Calc 88.15 Est GFR (MDRD) Af Amer 83 Est GFR (MDRD) Non-Af 69 BUN/Creatinine Ratio 13.0 Glucose 139 H Calcium 8.9 Rapid Covid: Positive Radiography Chest X-Ray - ED: 1 View, Read by ED Physician and Chronic Changes Treatment and Re-Evaluation Comments:: Chest x-ray per my interpretation reveals no focal infiltrate. Lab work unremarkable. Covid test is positive. Test results discussed with the patient. She is interested in monoclonal antibodies. I did discuss this with her and will place the order. Return instructions are provided. The following information was communicated to the patient or caregiver: Monoclonal antibody infusion is not an FDA approved drug. The FDA has authorized the emergency use of monoclonal antibody therapy. The patient had the option to refuse or accept treatment with monoclonal antibody therapy. The patient was informed that the number of people treated with monoclonal antibody therapy at this time is small. The potential benefits and the potential risks of monoclonal antibody therapy are not fully known. Potential benefits of monoclonal antibody include a reduced risk of progressing to severe COVID-19 infection. Potential risks or side effects of monoclonal antibody therapy include allergic reactions, side effects from injection including brief pain, bleeding, bruising of the skin, soreness, swelling, possible infection at the infusion site. The patient stated understanding of this information communicated and wished to proceed with monoclonal antibody infusion therapy. The patient is appropriate for the Monoclonal Antibody Infusion. The patient states understanding of this information communicated and wishes to proceed with monoclonal antibody infusion therapy. Patient agrees to receive either Balanivimab/Etesvimab or Casirivimab/Imdevimab upon availability. Discharge Plan Triage Chief Complaint: General Illness ED Provider: Mitzi Hinton Dx/Rx/DC Orders Clinical Impression: COVID-19 Instructions: Coronavirus Disease 2019 (COVID-19): Overview, Coronavirus Disease 2019 (COVID-19): Caring for Yourself or Others Prescriptions: New ondansetron 4 mg tablet,disintegrating 4 mg PO Q8H PRN (Reason: nausea and vomiting) Qty: 10 RF: 0 No Action albuterol sulfate 90 mcg/actuation aerosol powdr breath activated 2 inh INHALATION Q4H PRN (Reason: Sob &/Or Wheezing) RF: 0 Stand Alone Forms: ED Work / School Excuse, Monoclonal Antibody Referral Primary Care Provider: Pebbles Joy Referrals: Pebbles Joy MD [Primary Care Provider] - 1-2 Weeks Disposition Disposition: Home, Self Care
[2021-08-20 05:08] LABS: Absolute Lymphocyte Count 0.58 X10^3/uL (0.83-4.51); Absolute Neutrophil Count 4.7 X10^3/uL (2.0-7.7); Basophil# 0.07 X10^3/uL; Eosinophil# 0.25 X10^3/uL; Eosinophils% 3.6 % (0-5); Hematocrit 36.6 % (37-47); Hemoglobin 11.5 g/dL (12.0-15.0); Lymphocyte # 0.58 X10^3/ul (0.83-4.51); Lymphocyte % 8.3 % (19-41); Mean Corp Hgb Conc 31.4 g/dL (32-36); Mean Corpuscular Hgb 25.7 pg (27.0-32.0); Mean Corpuscular Volume 81.7 fL (81-99); Mean Platelet Vol. 9.5 fl (6.2-12.0); Monocyte# 1.36 X10^3/uL; Monocyte% 19.4 % (0-10); NRBC Flagged by Analyzer 0 % (0-5); Neutrophil # 4.71 X10^3/uL (2.7-7.7); Neutrophil % 67.3 % (47-70); POSITIVE DIFFERENTIAL YES; Platelet Count 325 K/mm3 (150-450); RBC Distribution Width SD 45.4 fl (35.1-43.9); Red Blood Count 4.48 M/mm3 (4.2-5.4)
[2021-08-20] MEDS: Ketorolac 30 MG/ML Syringe IV (05:09)
[2021-08-20] MEDS: Ondansetron 4 MG/2 ML Vial IV (05:09)
[2021-08-20 05:11] LABS: Differential Indicated SCAN CRITERIA MET
[2021-08-20 05:21] LABS: Anion Gap 7 (5-15); BUN 13 mg/dL (7-18); Calcium,Total 8.9 mg/dL (8.5-10.1); Chloride 105 mmol/L (98-107); EST Glomerular Filtration Rate 69 mL/min (>60); Est Glom Filt Rate - Afr Amer 83 mL/min (>60); Estimated Creatinine Clearance 88.15 ml/min; Glucose 139 mg/dL (74-106); Potassium 3.8 mmol/L (3.5-5.1); Sodium Level 134 mmol/L (136-145)
[2021-08-20 05:36] LABS: Anisocytosis 1+
[2021-08-20 05:44] VITALS: BP 134/53; PULSE 85; RESP 16; O2SAT 98
== END 2021-08-20 05:45 | disposition home or self-care (01) ==
LOC: ED 05:37
PROVIDERS: Emergency Provider Emergency Medicine; PCP Internal Medicine
DX: U07.1 COVID-19 (principal); F17.210 Nicotine dependence, cigarettes, uncomplicated
CPT/HCPCS: 71045; 80048; 85025; 87426; 96374; 96375; 99283; A4216; J2405

== ENCOUNTER 2021-09-14 19:58 | Emergency (ER) | payer MEDICAID, SELFPAY ==
[2021-09-14 19:59] VITALS: BP 140/99; PULSE 92; RESP 18; TEMP 37; O2SAT 100; BMI 34.4
--- NOTE | 2021-09-14 21:12 | EDS_ITS ---
HPI History of Present Illness Chief Complaint: General Illness Informant: patient Onset/Context/Timing Onset: Days (2) Context: Gradual Onset Timing: Continuous Quality: Aching Location: Chest, head Worsened by: Nothing Relieved by: Going to the bathroom Narrative Narrative: Patient Jessie with possible Covid for the past 3 days. Patient states she recently got over a Covid and is concerned that she may have it again. Patient states she has some pain in her chest and in her head. Patient admits to some subjective chills, rhinorrhea, and sore throat. Patient states she is coughing up some yellow sputum. Patient also admits to some nausea and vomiting. Patient admits to a headache as well as general myalgias. Patient states nothing makes it worse. Patient states her symptoms improve when she goes to the bathroom. [facility] Medical History Abdominal pain Asthma Chronic back pain Depression with anxiety Diarrhea Frequent headaches GERD (gastroesophageal reflux disease) H. pylori infection Heavy menses History of substance abuse Nausea and vomiting Scoliosis Seasonal allergies Vitamin D deficiency Home Medications NK 09/14/21 [History Last Taken Unknown] Allergy/AdvReac Type Severity Reaction Status Date / Time blueberry [Blueberry] Allergy Anaphylaxis Verified 09/14/21 20:01 nickel [Nickel] Allergy Hives Verified 09/14/21 20:01 lactose AdvReac Upset Verified 09/14/21 20:01 Stomach Family History Aunt Diabetes Colon cancer Grandmother COPD (chronic obstructive pulmonary disease) Heart disease Hypertension Uncle Heart disease Hypertension Myocardial infarction, Onset Age: 40 Father Cancer lung Hypertension Mother Colon cancer Surgical History History of appendectomy History of tonsillectomy Social History Smoking Status: Current every day smoker tobacco type: cigarettes Tobacco: How many years used: 12 alcohol intake: never substance use type: former substance user Date of last use: 08/21/2013 and methamphetamine caffeine: No what type of physical activity do you participate in: walking seatbelt use: always do you feel safe at home: Yes additional social history: Engaged-Leigha ROS ROS ED Constitutional Constitutional ED: Reports chills and subjective; Denies fever(s) Eyes Eyes: Reports blurry vision; Denies diplopia ENT ENT ED: Reports rhinorrhea and sore throat Cardiovascular Cardiovascular: Reports chest pain; Denies palpitations Respiratory/Chest Respiratory/Chest: Reports cough, dyspnea and sputum Gastrointestinal Gastrointestinal: Reports nausea and vomiting Genitourinary Genitourinary ED: Denies dysuria or hematuria Musculoskeletal Musculoskeletal: Reports back pain and neck pain Integumentary Denies abscess or rash Neurologic Neurologic: Reports headache(s); Denies weakness Allergic/Immunologic Allergic/Immunologic ED: Denies mouth swelling or urticaria EXAM Physical Exam Const Vital Signs: 09/14/21 19:59 09/14/21 21:02 Temperature 98.6 F Temperature Source Temporal Pulse Rate 92 Respiratory Rate 18 Respiratory Effort Normal Non-Labored Respiratory Pattern Normal Blood Pressure 140/99 H Blood Pressure Mean 112 Pulse Ox 100 Oxygen Delivery Method Room Air Positive well nourished and well developed General Appearance ED: well developed HEENT Reports moist mucous membranes Neck supple and no JVD Resp normal respiratory effort and clear to auscultation bilaterally Cardio regular rate, regular rhythm and no murmurs GI normal to inspection, nondistended, normoactive bowel sounds and non-tender Palpation: soft Extremity normal to inspection General Extremety ED: Negative for edema or tenderness General Extremity: Negative for edema Neuro oriented x3, CN's II-XII intact bilaterally and no sensory deficits noted Sensorium / Orientation: alert Motor Exam: strength 5/5 throughout Psych mental status grossly normal Skin no rashes or lesions noted MDM MDM MDM Narrative Medical decision making narrative: Patient was given IV fluids. COVID-19 rapid antigen was obtained was negative. Influenza A and influenza B swabs were obtained and were negative. Portable 1 view chest x-ray was obtained. On my interpretation, lung sow are clear. There is normal cardiac silhouette. Bony thorax is normal. There is no acute process noted. Radiologist also interpreted the x-ray and agrees. CBC and comprehensive metabolic profile were within normal limits. Urinalysis does not show any evidence of urinary tract infection. Patient was advised of her findings. Patient was advised that this is most likely a viral illness. Patient was instructed to take Tylenol or ibuprofen as needed for any aches or fevers. Patient was instructed to drink plenty of fluids. Patient was instructed to follow-up with her primary care physician in 5 to 7 days. Patient understood and was agreeable with the plan. All questions were answered. Lab Data Attestation: I reviewed the patient's lab results. Labs: Laboratory Results - last 24 hr 09/14/21 09/14/21 09/14/21 21:10 21:20 21:20 WBC 10.2 RBC 4.63 Hgb 12.3 Hct 38.0 MCV 82.1 MCH 26.6 L MCHC 32.4 RDW Std Deviation 46.0 H RDW Coeff of Ankit 15.5 H Plt Count 350 MPV 9.3 Immature Gran % (Auto) 0.200 Neut % (Auto) 60.3 Lymph % (Auto) 25.0 Pondera % (Auto) 8.2 Eos % (Auto) 5.4 H Baso % (Auto) 0.9 Absolute Neuts (auto) 6.2 Absolute Lymphs (auto) 2.54 Nucleated RBC % 0 Sodium 139 Potassium 3.7 Chloride 106 Carbon Dioxide 26.0 Anion Gap 7 BUN 13 Creatinine 0.97 Estim Creat Clear Calc 90.87 Est GFR (MDRD) Af Amer 86 Est GFR (MDRD) Non-Af 71 BUN/Creatinine Ratio 13.4 Glucose 93 Calcium 8.5 Total Bilirubin 0.40 AST 17 ALT 20 Alkaline Phosphatase 81 Total Protein 7.8 Albumin 3.7 Globulin 4.1 Albumin/Globulin Ratio 0.9 Urine Color Yellow Urine Clarity Clear Urine pH 7.0 Ur Specific [place] 1.010 Urine Protein Negative Urine Glucose (UA) Normal Urine Ketones Negative Urine Occult Blood 25 H Urine Nitrite Negative Urine Bilirubin Negative Urine Urobilinogen Normal Ur Leukocyte Esterase Negative Urine RBC 0 SEEN Urine WBC 0 SEEN Ur Squamous Epith Cells 0 SEEN Urine Bacteria 0 SEEN Urine Mucus 0 SEEN Radiography Chest X-Ray - ED: 1 View, Read by ED Physician, Read by Radiologist and Normal Diagnostic Testing: Clinical Impression(s) from Imaging Studies Chest X-Ray 09/14/21 21:30 IMPRESSION: No acute cardiopulmonary disease or major interval change. Electronically Signed: Immanuel Islas DO at 21:53 EST Reading Location ID and State: [address] [place] [address] Tel [phone], Service support , Discharge Plan Triage Chief Complaint: General Illness ED Provider: Harshil Lozano Dx/Rx/DC Orders Clinical Impression: Viral upper respiratory tract infection Instructions: ED URI, Viral, No Abx (Adult) Prescriptions: No Action NK RF: 0 Primary Care Provider: Pebbles Joy Referrals: Pebbles Joy MD [Primary Care Provider] - 3-5 Days Disposition Disposition: Home, Self Care
[2021-09-14] MEDS: 0.9% Normal Saline 1,000 ML 1000 ML IV (21:15)
--- NOTE | 2021-09-14 21:30 | RAD_ITS ---
STUDY: X-RAY CHEST REASON FOR EXAM: Female, 31 years old. Cough. TECHNIQUE: Single AP portable view of the chest. COMPARISON: 08/20/2021. FINDINGS: The lungs are are well expanded. There is no acute infiltrate or mass. There is no demonstrated pleural abnormality. Normal size heart. Normal mediastinum and jorge. Normal visualized pulmonary arteries. Normal visualized aortic arch and descending thoracic aorta. Normal visualized thoracic spine. Normal visualized ribs, clavicles, and shoulders. There is no demonstrated abnormality of the visualized soft tissue structures of the upper abdomen. RAD/Chest 1 View (Portable) IMPRESSION: No acute cardiopulmonary disease or major interval change. Electronically Signed: Immanuel Islas DO at 21:53 EST ,
[2021-09-14 21:33] LABS: Bacteria 0 SEEN /hpf (None Seen); Mucous, Urine 0 SEEN /hpf (<or=2+); Red Blood Cells-Urine 0 SEEN /hpf (0-5); Squamous Epithelial Cells - UA 0 SEEN /hpf (5-10); White Blood Cells 0 SEEN /hpf (0-5)
[2021-09-14 21:33] LABS: Absolute Lymphocyte Count 2.54 X10^3/uL (0.83-4.51); Absolute Neutrophil Count 6.2 X10^3/uL (2.0-7.7); Basophil# 0.09 X10^3/uL; Basophil% 0.9 % (0-1); Eosinophil# 0.55 X10^3/uL; Eosinophils% 5.4 % (0-5); Hemoglobin 12.3 g/dL (12.0-15.0); Lymphocyte # 2.54 X10^3/ul (0.83-4.51); Mean Corp Hgb Conc 32.4 g/dL (32-36); Mean Corpuscular Hgb 26.6 pg (27.0-32.0); Mean Corpuscular Volume 82.1 fL (81-99); Mean Platelet Vol. 9.3 fl (6.2-12.0); Monocyte# 0.83 X10^3/uL; Monocyte% 8.2 % (0-10); NRBC Flagged by Analyzer 0 % (0-5); Neutrophil # 6.15 X10^3/uL (2.7-7.7); Neutrophil % 60.3 % (47-70); Platelet Count 350 K/mm3 (150-450); RBC Distribution Width CV 15.5 % (11.6-14.6); Red Blood Count 4.63 M/mm3 (4.2-5.4); White Blood Count 10.2 K/mm3 (4.4-11.0)
[2021-09-14 21:34] LABS: Color, Urine Yellow (Yellow); Glucose, Dipstick Normal (Normal); Ketone-Dipstick Negative (Negative); Leukocyte Esterase-Dipstick Negative /ul (Negative); Nitrite-Dipstick Negative (Negative); Occult Blood-Urine 25 /ul (Negative); Protein-Dipstick Negative (Negative); Urine Bilirubin Dipstick Negative (Negative); Urine Clarity Clear (Clear); Urine Urobilinogen Normal (Normal)
[2021-09-14 21:54] LABS: ALB/GLOB Ratio 0.9 RATIO (0.9-2.4); AST(SGOT) 17 U/L (15-37); Alanine Aminotransfer ALT/SGPT 20 U/L (13-56); Albumin, Serum 3.7 g/dL (3.2-5.0); Alkaline Phosphatase 81 U/L (45-117); Anion Gap 7 (5-15); BUN 13 mg/dL (7-18); BUN/Creat Ratio 13.4 RATIO (10-20); Calcium,Total 8.5 mg/dL (8.5-10.1); Chloride 106 mmol/L (98-107); Creatinine, Serum 0.97 mg/dL (0.55-1.02); EST Glomerular Filtration Rate 71 mL/min (>60); Est Glom Filt Rate - Afr Amer 86 mL/min (>60); Estimated Creatinine Clearance 90.87 ml/min; Globulin 4.1 g/dL (2.2-4.2); Glucose 93 mg/dL (74-106); Potassium 3.7 mmol/L (3.5-5.1); Protein, Total 7.8 g/dL (6.4-8.2); Sodium Level 139 mmol/L (136-145)
--- NOTE | 2021-09-14 22:09 | ED.RN ---
PT REFUSED TO WAIT FOR IV FLUIDS TO FINISH INFUSING, STATE, I'M GETTING OUT OF HERE
== END 2021-09-14 22:10 | disposition home or self-care (01) ==
PROVIDERS: Emergency Provider Emergency Medicine; PCP Internal Medicine; Visit Provider Emergency Medicine
DX: J06.9 Acute upper respiratory infection, unspecified (principal); F17.210 Nicotine dependence, cigarettes, uncomplicated; Z86.16 Personal history of COVID-19
CPT/HCPCS: 71045; 80053; 81001; 85025; 87426; 87804; 96360; 99283; J7030; A4216

== ENCOUNTER 2022-07-01 19:05 | Emergency (ER) | payer MEDICAID, SELFPAY ==
[2022-07-01 19:05] VITALS: BP 154/86; PULSE 99; RESP 26; TEMP 38.1; O2SAT 100
[2022-07-01 19:06] VITALS: BP 154/86; PULSE 99; RESP 26; TEMP 38.1; O2SAT 100; BMI 42.3
--- NOTE | 2022-07-01 19:25 | EX.ED.DYSGE1 ---
HPI History of Present Illness Chief Complaint: Shortness of Breath Informant: patient and parent Narrative Narrative: Presenting with flulike symptoms. 11 AM fever headache sore throat cough. Myalgias. Vomited yesterday x1. Daughter with sore throat recently. Nonvaccinated for COVID had COVID back in July with similar symptoms. No flu vaccination this year. Ibuprofen 400 mg taken this morning. Tolerating oral fluids however reports is nausea. Denies diarrhea. Prior similar symptoms: Yes PFSH PFSH Medical History Abdominal pain Asthma Chronic back pain Depression with anxiety Diarrhea Frequent headaches GERD (gastroesophageal reflux disease) H. pylori infection Heavy menses History of substance abuse Nausea and vomiting Scoliosis Seasonal allergies Vitamin D deficiency Home Medications NK 09/14/21 [History Last Taken Unknown] Allergy/AdvReac Type Severity Reaction Status Date / Time blueberry [Blueberry] Allergy Anaphylaxis Verified 09/14/21 20:01 nickel [Nickel] Allergy Hives Verified 09/14/21 20:01 lactose AdvReac Upset Verified 09/14/21 20:01 Stomach Family History Aunt Diabetes Colon cancer Grandmother COPD (chronic obstructive pulmonary disease) Heart disease Hypertension Uncle Heart disease Hypertension Myocardial infarction, Onset Age: 40 Father Cancer lung Hypertension Mother Colon cancer Surgical History History of appendectomy History of tonsillectomy Social History Smoking Status: Current every day smoker tobacco type: cigarettes Tobacco: How many years used: 12 alcohol intake: never substance use type: former substance user Date of last use: 08/21/2013 and methamphetamine caffeine: No what type of physical activity do you participate in: walking seatbelt use: always do you feel safe at home: Yes additional social history: Memo NGUYEN ED Constitutional Constitutional ED: Reports fever(s); Denies chills or sweats Eyes Eyes: Denies change in vision ENT ENT ED: Denies dysphagia or sore throat Cardiovascular Cardiovascular: Denies chest pain, leg edema, palpitations or racing heartbeat Respiratory/Chest Respiratory/Chest: Reports cough and dyspnea; Denies dyspnea on exertion Gastrointestinal Gastrointestinal: Reports nausea and vomiting; Denies abdominal pain or diarrhea Genitourinary Genitourinary ED: Denies dysuria, hematuria or urinary frequency Musculoskeletal Musculoskeletal: Reports myalgias; Denies back pain, extremity pain or neck pain Integumentary Denies rash or wounds Neurologic Neurologic: Reports headache(s); Denies paresthesias or weakness EXAM Physical Exam Const Vital Signs: 07/01/22 19:06 07/01/22 19:05 07/01/22 19:38 Temperature 100.6 F H 100.6 F H Temperature Source Temporal Temporal Pulse Rate 99 99 Respiratory Rate 26 H 26 H Respiratory Effort Short of Breath Blood Pressure 154/86 H 154/86 H Blood Pressure Mean 108 108 Pulse Ox 100 100 Oxygen Delivery Method Room Air Room Air Positive well nourished and well developed Constitutional Narrative: Laying in bed General Appearance ED: well developed HEENT Reports TM's clear and moist mucous membranes HEENT Narrative: No posterior pharyngeal erythema. normocephalic and atraumatic Tympanic Membrane ED: Yes TM's clear Eyes PERRL, EOMs intact bilaterally and conjunctivae normal General Eye ED: Yes normal appearance of both eyes Neck no lymphadenopathy and supple Neck Narrative: No meningismus General: Negative for tenderness Chest Wall Chest: Negative for tenderness Resp normal respiratory effort and normal air movement Effort and Inspection: symmetric chest movement; Negative for respiratory distress Cardio regular rate, regular rhythm and no murmurs Peripheral Pulses: pulses 2+ throughout GI normal to inspection, nondistended, normoactive bowel sounds and non-tender Palpation: Negative for guarding or rebound tenderness present Back/Spine no CVA tenderness and no thoracic nor lumbar tenderness Extremity normal to inspection General Extremety ED: Negative for edema or tenderness General Extremity: Negative for edema Neuro oriented x3, CN's II-XII intact bilaterally and no sensory deficits noted Sensorium / Orientation: awake and alert Skin no rashes or lesions noted and no wounds MDM MDM MDM Narrative Medical decision making narrative: Patient ambulated into department. she is laying in bed. She has no meningismus. Presenting with flulike symptoms have reported similar COVID back in July. She is nonvaccinated. Low-grade fever in the ED. She given Tylenol and Zofran in the ED. She is tolerating oral fluids. Rapid flu and influenza returned negative. Symptoms started today discussed possibly false negative patient and mother. She has normal lung sounds no rales for concern for pneumonia. Do not feel x-rays are necessary. She will be treated symptomatically continue Tylenol ibuprofen oral fluids. She can recheck couple days if symptoms persist. Return precautions. All questions were answered. Work note given. Discharge Plan Triage Chief Complaint: Shortness of Breath ED Provider: Mickey Jensen Dx/Rx/DC Orders Clinical Impression: Flu-like symptoms, Fever, Myalgia, Acute viral syndrome Instructions: ED Fever Control (Adult), ED Viral Syndrome (Adult) Prescriptions: No Action NK Primary Care Provider: Pebbles Joy Referrals: Pebbles Joy MD [Primary Care Provider] - 3-5 Days if not improving Activity Restrictions/Additional Instructions: Rapid flu and COVID-negative today. Possible false negative. Continue Tylenol and ibuprofen as needed for symptoms. Can recheck in couple days if still symptomatic. Follow-up with your doctor. Return if any worsening symptoms. Disposition Disposition: Home, Self Care Discharge Date/Time: 07/01/22 20:37
[2022-07-01] MEDS: Acetaminophen 500 MG Tablet 1000 MG PO (19:31)
[2022-07-01] MEDS: Ondansetron ODT 4 MG Tablet PO (19:32)
== END 2022-07-01 20:37 | disposition home or self-care (01) ==
PROVIDERS: Emergency Provider Emergency Medicine; PCP Internal Medicine; Visit Provider Emergency Medicine
DX: B34.9 Viral infection, unspecified (principal); R50.9 Fever, unspecified; M79.10 Myalgia, unspecified site; F17.210 Nicotine dependence, cigarettes, uncomplicated; Z86.16 Personal history of COVID-19
CPT/HCPCS: 87428; 99283

== ENCOUNTER 2022-09-01 11:31 | Emergency (ER) | payer MEDICAID, SELFPAY ==
[2022-09-01 11:31] VITALS: BP 123/87; PULSE 103; RESP 18; TEMP 36.3; O2SAT 100; BMI 36.9
[2022-09-01] MEDS: Ondansetron ODT 4 MG Tablet PO (11:50)
[2022-09-01 12:03] LABS: Hematocrit 30.2 % (37-47); Hemoglobin 9.4 g/dL (12.0-15.0)
--- NOTE | 2022-09-01 12:07 | EDS_ITS ---
HPI HPI - Female History of Present Illness Chief Complaint: Vag Bleeding Detail of Chief Complaint: Vaginal bleeding since and viral symptoms Informant: patient Pain Pain: Positive for Pelvic Pain; Negative for Vulvar Pain or Vaginal Pain Onset: Days Context: Sudden Onset Timing: Intermittent Quality: Positive for Cramping and Aching Location: - (Pelvic area) Current Severity: Moderate Maximum Severity: Severe Worsened by: - (Nothing specific) Relieved by: - (Nothing) Bleeding Issue: Positive for Vaginal bleeding; Negative for Passing clots or Passing tissue Onset: Month(s) Context: Sudden Onset Timing: Continuous and Waxes and wanes Current Severity: Spotting (Spotting to mild today. Unable to tell me how many pads she is using per day.) Associated Symptoms Associated Symptoms: Negative for Dysuria, Frequency, Urgency or Hematuria Test: Negative Narrative Narrative: Patient is a 32-year-old woman who states she was seen by raw scales operator 1 year ago. There is no history of abnormal Pap smear. Patient states she has had vaginal bleeding since . She is unable to quantitate the amount of pads/tampons per day used. Today she is used to. States it is much milder than spotting. She does complain of pelvic pain. She denies history of salpingitis. She is status post appendectomy. She has been seen for abdominal pain in the past with no determine etiology. She does endorse orthostatic symptoms. She denies black or maroon-colored stool. Patient denies urologic symptoms. Prior similar symptoms: No Recent Illness/Hospitalization: No PFSH PFSH Medical History Abdominal pain Asthma Chronic back pain Depression with anxiety Diarrhea Frequent headaches GERD (gastroesophageal reflux disease) H. pylori infection Heavy menses History of substance abuse Nausea and vomiting Scoliosis Seasonal allergies Vitamin D deficiency Home Medications ferrous sulfate 325 mg (65 mg iron) tablet 325 mg PO TID #90 tabs 09/01/22 [Rx Last Taken Unknown] Allergy/AdvReac Type Severity Reaction Status Date / Time blueberry [Blueberry] Allergy Anaphylaxis Verified 09/01/22 11:32 nickel [Nickel] Allergy Hives Verified 09/01/22 11:32 lactose AdvReac Upset Verified 09/01/22 11:32 Stomach Family History Aunt Diabetes Colon cancer Grandmother COPD (chronic obstructive pulmonary disease) Heart disease Hypertension Uncle Heart disease Hypertension Myocardial infarction, Onset Age: 40 Father Cancer lung Hypertension Mother Colon cancer Surgical History History of appendectomy History of tonsillectomy Social History (Updated 09/01/22 @ 12:[address] Christophe Mcadams MD) household members: children Smoking Status: Current every day smoker tobacco type: cigarettes Tobacco: How many years used: 12 alcohol intake: never substance use type: former substance user Date of last use: 08/21/2013 and methamphetamine caffeine: No what type of physical activity do you participate in: walking seatbelt use: always do you feel safe at home: Yes additional social history: Melanie-Leigha NGUYEN ED Constitutional Constitutional ED: Denies chills, fever(s), subjective or sweats Eyes Eyes: Denies blurry vision, change in vision or diplopia ENT ENT ED: Reports rhinorrhea and sore throat; Denies ear pain Cardiovascular Cardiovascular: Denies chest pain, orthopnea, palpitations or paroxysmal nocturnal dyspnea Respiratory/Chest Respiratory/Chest: Reports cough; Denies dyspnea, dyspnea on exertion, orthopnea, paroxysmal nocturnal dyspnea or sputum Gastrointestinal Gastrointestinal: Reports abdominal pain, diarrhea, nausea, vomiting and other Details: Patient states she has vomited twice since this morning. She has had increased bowel movements that are very soft but not watery. ; Denies constipation or melena Genitourinary Genitourinary ED: Denies dysuria, hematuria or urinary frequency Musculoskeletal Musculoskeletal: Denies arthralgias, myalgias or neck pain Integumentary Denies rash Neurologic Neurologic: Denies headache(s), paresthesias or weakness Hematologic/Lymphatic Hematologic/Lymphatic: Denies easy bleeding or easy bruising EXAM Physical Exam Const Vital Signs: 09/01/22 11:31 Temperature 97.3 F L Temperature Source Temporal Pulse Rate 103 H Respiratory Rate 18 Blood Pressure 123/87 H Blood Pressure Mean 99 Pulse Ox 100 Oxygen Delivery Method Room Air Positive well nourished, well developed, obese and unkempt General Appearance ED: unkempt and well developed; Negative for odor of alcohol detected or pallor Nutritional Appearance: obese HEENT Reports moist mucous membranes HEENT Narrative: .Head is atraumatic normocephalic. Ears normal. Posterior pharynx normal. Eyes PERRL and EOMs intact bilaterally General Eye ED: Negative for pale conjunctiva or scleral icterus Neck no lymphadenopathy, supple and no JVD Chest Wall inspection of chest normal and palpation of chest normal Resp normal respiratory effort and clear to auscultation bilaterally Cardio regular rhythm, S1 normal heart sound, no murmurs and no JVD Rate: tachycardic GI normal to inspection, nondistended, normoactive bowel sounds, soft to palpation and no masses; Negative for non-tender GI Narrative: Diffuse tenderness throughout. Palpation: tender other (Diffuse); Negative for guarding, rigid, hepatomegaly, splenomegaly or mass Narrative: There is no CVA tenderness. Back/Spine no CVA tenderness Extremity normal to inspection and full ROM General Extremety ED: Negative for edema or tenderness General Extremity: Negative for edema Neuro oriented x3, CN's II-XII intact bilaterally and no sensory deficits noted Sensorium / Orientation: alert Psych Psych Narrative: Affect is flat. Psychomotor skills are slow. Appearance: unkempt Skin no rashes or lesions noted and no wounds General Skin Exam: Negative for jaundice or pallor MDM MDM MDM Narrative Medical decision making narrative: Patient with viral symptoms. Will assess for COVID since she has not been vaccinated. She has had ill contacts. Because of reported vaginal bleeding for 2 months will obtain H&H to rule out anemia. Urine test to rule out . Will perform pelvic exam. Review of prior records indicates patient had an EGD and colonoscopy performed September of last year by Dr. Roddy Rosenthal that was unremarkable. There are no records of SERVICE LOSS CONTROL CONSULTANT visits. Pelvic exam was performed with nurse plating foreman. External genitalia normal. Vaginal mucosa is normal. Cervix appears normal. There is scant amount of old blood noted. There is no active bleeding noted. Serum test was negative. H&H is 9.4 and 30.2. September 14 hemoglobin was 12.3. This is a significant drop consistent with her bleeding. Presently there is no active bleeding. Community Services Manager on-call for [facility] was contacted since she receives her gynecologic care through the [facility]. Rapid COVID and influenza antigen are both negative. I was informed by patient's nurse that she is complaining of crampy upper abdominal pain. Suspect this is due to her viral illness. Dicyclomine was ordered. I was made aware of this at 1329 I was informed that the nurse practitioner for the [facility] gynecology service has not returned to [facility]. The surgeon on-call is present in the OR and once she is done with her case will contact the emergency department. Spoke with Tiffanie Martínez nurse practitioner for [facility] LOSS CONTR[employer] [facility]. Plan is iron. Contact office for follow-up appointment Lab Data Attestation: I reviewed the patient's lab results. Labs: Laboratory Results - last 24 hr 09/01/22 09/01/22 11:55 11:55 Hgb 9.4 L Hct 30.2 L Serum , Qual NEGATIVE Discharge Plan Triage Chief Complaint: Vag Bleeding ED Provider: Christophe Mcadams Dx/Rx/DC Orders Clinical Impression: Abnormal vaginal bleeding, Anemia due to blood loss, acute, Acute viral disease, Abdominal pain, vomiting, and diarrhea, Upper respiratory infection with cough and congestion, Sinus tachycardia, Orthostatic dizziness Instructions: ED Anemia, Type Not Specified (Adult), ED Dysfunctional Uterine Bleeding Prescriptions: New ferrous sulfate 325 mg (65 mg iron) tablet 325 mg PO TID Qty: 90 0RF Primary Care Provider: Pebbles Joy Referrals: Tiffanie Alvarez CNM [Med Staff - Adv Practice Prof] - 3-5 Days Pebbles Joy MD [Primary Care Provider] - Activity Restrictions/Additional Instructions: 1. Call the [facility] gynecology office today for follow-up appointment within the next week. 2. The iron tablet you were prescribed will cause you to be constipated. Recommend Metamucil 2-3 times a day for the next month. Disposition Disposition: Home, Self Care
[2022-09-01 12:14] LABS: Internal QC Validated? YES +Cl - CLEAR BKGD; Pregnancy, Serum, hCG Quali. NEGATIVE Negative
[2022-09-01] MEDS: Ondansetron 4 MG/2 ML Vial IV (13:49)
[2022-09-01] MEDS: Dicyclomine 10 MG Capsule 20 MG PO (13:49)
[2022-09-01 14:34] VITALS: BP 134/77; PULSE 62; RESP 15; O2SAT 98
== END 2022-09-01 14:35 | disposition home or self-care (01) ==
PROVIDERS: Emergency Provider Emergency Medicine; PCP Internal Medicine; Visit Provider Emergency Medicine
DX: N93.9 Abnormal uterine and vaginal bleeding, unspecified (principal); D62 Acute posthemorrhagic anemia; B34.9 Viral infection, unspecified; R10.9 Unspecified abdominal pain; R11.10 Vomiting, unspecified; R19.7 Diarrhea, unspecified; J06.9 Acute upper respiratory infection, unspecified; R00.0 Tachycardia, unspecified; R42 Dizziness and giddiness; E66.9 Obesity, unspecified
CPT/HCPCS: 84703; 85014; 85018; 87811; 96374; 99282; A4216; J2405

== ENCOUNTER 2023-01-29 16:52 | Emergency (ER) | payer OTHER, MEDICAID, SELFPAY ==
[2023-01-29 16:53] VITALS: BP 123/81; PULSE 97; RESP 17; TEMP 36.6; O2SAT 99; BMI 38.9
--- NOTE | 2023-01-29 17:47 | EX.ED.DYSGE1 ---
HPI History of Present Illness Chief Complaint: General Illness Informant: patient Onset/Context/Timing Onset: Days (3) Context: Gradual Onset Timing: Continuous Quality: Aching, dull, sharp at times Location: Shoulders, neck, head, and upper back Worsened by: Light, sounds, swallowing Relieved by: Nothing Narrative Narrative: Patient presents with headache, sore throat, and neck pain that has been getting worse over the last 3 days. Patient states it is gradually getting worse. Patient describes it as aching and dull but sharp at times. Patient states it is worse with light and sounds. Patient states her pain is also worse with swallowing. Patient states her pain is localized to her neck, shoulders, and head. Patient does admit to some blurred vision and sore throat. Patient also admits to some pain in her chest and difficulty breathing. Patient states she did have some nausea and vomiting yesterday. Patient states she has been able to keep down liquids today. [facility] Medical History Abdominal pain Asthma Chronic back pain Depression with anxiety Diarrhea Frequent headaches GERD (gastroesophageal reflux disease) H. pylori infection Heavy menses History of substance abuse Nausea and vomiting Scoliosis Seasonal allergies Vitamin D deficiency Home Medications ferrous sulfate 325 mg (65 mg iron) tablet 325 mg PO TID #90 tabs 09/01/22 [Rx Last Taken Unknown] cyclobenzaprine 10 mg tablet 10 mg PO QHS PRN PRN Muscle Spasm #5 TABLETS 01/29/23 [Rx Last Taken Unknown] hydrocodone-acetaminophen 5-325mg 5mg-325mg 1 tab PO Q6H PRN PRN Pain 3 days #10 TABLETS 01/29/23 [Rx Last Taken Unknown] Allergy/AdvReac Type Severity Reaction Status Date / Time blueberry [Blueberry] Allergy Anaphylaxis Verified 01/29/23 16:55 nickel [Nickel] Allergy Hives Verified 01/29/23 16:55 lactose AdvReac Upset Verified 01/29/23 16:55 Stomach Family History Aunt Diabetes Colon cancer Grandmother COPD (chronic obstructive pulmonary disease) Heart disease Hypertension Uncle Heart disease Hypertension Myocardial infarction, Onset Age: 40 Father Cancer lung Hypertension Mother Colon cancer Surgical History History of appendectomy History of tonsillectomy Social History household members: children Smoking Status: Current every day smoker tobacco type: cigarettes Tobacco: How many years used: 12 alcohol intake: never substance use type: former substance user Date of last use: 08/21/2013 and methamphetamine caffeine: No what type of physical activity do you participate in: walking seatbelt use: always do you feel safe at home: Yes additional social history: Engaged-Leigha ROS ROS ED Constitutional Constitutional ED: Denies chills or fever(s) Eyes Eyes: Reports blurry vision; Denies diplopia ENT ENT ED: Reports sore throat; Denies rhinorrhea Cardiovascular Cardiovascular: Reports chest pain; Denies palpitations Respiratory/Chest Respiratory/Chest: Reports dyspnea; Denies cough Gastrointestinal Gastrointestinal: Reports nausea and vomiting Genitourinary Genitourinary ED: Denies dysuria or hematuria Musculoskeletal Musculoskeletal: Reports back pain and neck pain Integumentary Denies abscess or rash Neurologic Neurologic: Reports headache(s); Denies weakness Allergic/Immunologic Allergic/Immunologic ED: Denies mouth swelling or urticaria EXAM Physical Exam Const Vital Signs: 01/29/23 16:53 01/29/23 18:01 01/29/23 18:37 Temperature 97.8 F Temperature Source Temporal Pulse Rate 97 89 Respiratory Rate 17 20 H Respiratory Effort Normal Non-Labored Blood Pressure 123/81 H Blood Pressure Mean 95 Pulse Ox 99 Oxygen Delivery Method Room Air 01/29/23 20:04 Temperature Temperature Source Pulse Rate 88 Respiratory Rate 18 Respiratory Effort Blood Pressure 120/68 Blood Pressure Mean Pulse Ox 100 Oxygen Delivery Method Positive well nourished and well developed General Appearance ED: well developed HEENT Reports moist mucous membranes Neck supple and no JVD Resp normal respiratory effort and clear to auscultation bilaterally Cardio regular rate, regular rhythm and no murmurs GI normal to inspection, nondistended, normoactive bowel sounds and non-tender Palpation: soft Back/Spine Back/Spine Narrative: There is also tenderness over the cervical paraspinal muscles. There is mild spasm noted. There is good range of motion. Thoracic Spine / Upper Back: paraspinal muscle tenderness bilateral T1, T2, T3, T4, T5, T6 and T7 Extremity normal to inspection General Extremety ED: Negative for edema or tenderness General Extremity: Negative for edema Neuro oriented x3, CN's II-XII intact bilaterally and no sensory deficits noted Sensorium / Orientation: alert Motor Exam: strength 5/5 throughout Psych mental status grossly normal Skin no rashes or lesions noted MDM MDM MDM Narrative Medical decision making narrative: Differential diagnosis includes viral upper respiratory infection, sinus headache, COVID-19 infection, influenza infection, pneumonia, and migraine headache. COVID-19 rapid antigen will be obtained to assess for COVID infection. Influenza A and influenza B antigens will be obtained to assess for influenza infection. CBC will be obtained to assess for leukocytosis and anemia. Basic metabolic profile will be obtained to assess for electrolyte abnormality and renal function. Chest x-ray will be obtained to assess for pneumonia. Lab Data Attestation: I reviewed the patient's lab results. Lab results narrative: CBC was reviewed. There is a slight leukocytosis of 13.4. Hemoglobin was 10.6 and hematocrit was 35.9. Platelets were normal. Basic metabolic profile was reviewed and was within normal limits. COVID-19 rapid antigen was reviewed and was negative. Influenza A and influenza B antigens were reviewed and were negative. Labs: Laboratory Results - last 24 hr 01/29/23 01/29/23 18:39 18:39 WBC 13.4 H RBC 4.67 Hgb 10.6 L Hct 35.9 L MCV 76.9 L MCH 22.7 L MCHC 29.5 L RDW Std Deviation 50.6 H RDW Coeff of Ankit 18.3 H Plt Count 427 MPV 9.3 Immature Gran % (Auto) 0.400 Neut % (Auto) 70.4 H Lymph % (Auto) 18.2 L Pike % (Auto) 7.3 Eos % (Auto) 3.0 Baso % (Auto) 0.7 Absolute Neuts (auto) 9.4 H Absolute Lymphs (auto) 2.44 Nucleated RBC % 0 Sodium 138 Potassium 3.7 Chloride 107 Carbon Dioxide 24.0 Anion Gap 7 BUN 12 Creatinine 0.85 Estim Creat Clear Calc 102.75 Est GFR (MDRD) Af Amer 99 Est GFR (MDRD) Non-Af 81 BUN/Creatinine Ratio 14.1 Glucose 86 Calcium 9.1 Radiography Chest X-Ray - ED: 1 View, 2 View, Read by ED Physician, Read by Radiologist and No Acute Disease Diagnostic Testing: Clinical Impression(s) from Imaging Studies Chest X-Ray 01/29/23 18:50 IMPRESSION: 1. Mild crowding of bronchovascular markings at the lung bases contributed by shallow inspiration. 2. No evidence of acute cardiopulmonary process. Electronically Signed: Ld Fitzpatrick MD at 19:23 EDT , PA and lateral chest x-ray was obtained. There are 2 views. On my independent interpretation, lung sow are clear. There is normal cardiac silhouette. Bony thorax is normal. There is no acute process noted. Radiologist also interpreted the x-ray and agrees. Treatment and Re-Evaluation :: Patient was given a DuoNeb aerosol here. Patient was given IV fluids, Reglan, and Benadryl. Patient was feeling somewhat better on reevaluation. Patient was sleeping but awoke easily. Patient was advised of her findings. Patient was instructed to drink plenty of fluids. Patient was instructed to rest in a dark quiet room. Patient was instructed to follow-up with her primary care physician in 5 to 7 days. Patient was given prescriptions for a short course of [place] and Flexeril. Patient understood and was agreeable with the plan. All questions were answered. Discharge Plan Triage Chief Complaint: General Illness ED Provider: Harshil Lozano Dx/Rx/DC Orders Clinical Impression: Headache Instructions: ED Headache, Tension Prescriptions: New hydrocodone-acetaminophen [hydrocodone-acetaminophen] 5-325 mg tablet 1 tab PO Q6H PRN PRN (Reason: Pain) 3 Days Qty: 10 0RF cyclobenzaprine [cyclobenzaprine] 10 mg tablet 10 mg PO QHS PRN PRN (Reason: Muscle Spasm) Qty: 5 0RF No Action ferrous sulfate 325 mg (65 mg iron) tablet 325 mg PO TID Qty: 90 0RF Primary Care Provider: Pebbles Joy Referrals: Pebbles Joy MD [Primary Care Provider] - 3-5 Days Disposition Disposition: Home, Self Care Discharge Date/Time: 01/29/23 20:05
[2023-01-29] MEDS: Ipratropium/Albuterol Sulfate 3 ML AMPUL.NEB INHALATION (17:58)
[2023-01-29 18:01] VITALS: PULSE 89; RESP 20
[2023-01-29] MEDS: 0.9% Normal Saline 1,000 ML 1000 ML IV (18:35)
[2023-01-29] MEDS: DiphenhydrAMINE 50 MG/ML Syringe 25 MG IV (18:36)
[2023-01-29] MEDS: Metoclopramide 10 MG/2 ML Vial IV (18:36)
[2023-01-29 18:49] LABS: Absolute Lymphocyte Count 2.44 X10^3/uL (0.83-4.51); Absolute Neutrophil Count 9.4 X10^3/uL (2.0-7.7); Basophil# 0.09 X10^3/uL; Basophil% 0.7 % (0-1); Hematocrit 35.9 % (37-47); Hemoglobin 10.6 g/dL (12.0-15.0); Lymphocyte # 2.44 X10^3/ul (0.83-4.51); Lymphocyte % 18.2 % (19-41); Mean Corp Hgb Conc 29.5 g/dL (32-36); Mean Corpuscular Hgb 22.7 pg (27.0-32.0); Mean Corpuscular Volume 76.9 fL (81-99); Mean Platelet Vol. 9.3 fl (6.2-12.0); Monocyte# 0.98 X10^3/uL; Monocyte% 7.3 % (0-10); NRBC Flagged by Analyzer 0 % (0-5); Neutrophil # 9.41 X10^3/uL (2.7-7.7); Neutrophil % 70.4 % (47-70); Platelet Count 427 K/mm3 (150-450); RBC Distribution Width CV 18.3 % (11.6-14.6); RBC Distribution Width SD 50.6 fl (35.1-43.9); Red Blood Count 4.67 M/mm3 (4.2-5.4); White Blood Count 13.4 K/mm3 (4.4-11.0)
--- NOTE | 2023-01-29 18:50 | RAD_ITS ---
INDICATION: Dyspnea EXAMINATION/TECHNIQUE: X-RAY - XR Chest 2 Views COMPARISON: 08/20/2021 FINDINGS: LIFE-SUPPORT AND LINES: 1. None HEART AND VESSELS: The cardiac silhouette, pulmonary vasculature have normal appearance. No evidence of congestive failure. LUNGS AND PLEURAL SPACES: Lungs are clear. No focal infiltrate, consolidation or effusions. No evidence of pneumothorax. Mild crowding of bronchovascular markings in part contributed by shallow inspiration. No focal infiltrate. MEDIASTINUM AND HILAR REGIONS: No masses adenopathy noted. No areas of calcification. Visualized upper airway is normal in position. BONY ELEMENTS: No acute bony changes noted. RAD/Chest PA and Lateral IMPRESSION: 1. Mild crowding of bronchovascular markings at the lung bases contributed by shallow inspiration. 2. No evidence of acute cardiopulmonary process. Electronically Signed: Ld Fitzpatrick MD at 19:23 EDT ,
[2023-01-29 19:04] LABS: Anion Gap 7 (5-15); BUN 12 mg/dL (7-18); BUN/Creat Ratio 14.1 RATIO (10-20); Calcium,Total 9.1 mg/dL (8.5-10.1); Chloride 107 mmol/L (98-107); Creatinine, Serum 0.85 mg/dL (0.55-1.02); EST Glomerular Filtration Rate 81 mL/min (>60); Est Glom Filt Rate - Afr Amer 99 mL/min (>60); Estimated Creatinine Clearance 102.75 ml/min; Glucose 86 mg/dL (74-106); Potassium 3.7 mmol/L (3.5-5.1); Sodium Level 138 mmol/L (136-145)
[2023-01-29 20:04] VITALS: BP 120/68; PULSE 88; RESP 18; O2SAT 100
== END 2023-01-29 20:05 | disposition home or self-care (01) ==
PROVIDERS: Emergency Provider Emergency Medicine; PCP Internal Medicine; Visit Provider Emergency Medicine
DX: R51.9 Headache, unspecified (principal); F17.210 Nicotine dependence, cigarettes, uncomplicated
CPT/HCPCS: 71046; 80048; 85025; 87428; 94640; 96361; 96374; 96375; 99283; J7030; A4216

== ENCOUNTER 2023-08-24 05:30 | Emergency (ER) | payer MEDICAID, SELFPAY ==
[2023-08-24 05:30] VITALS: BP 162/101; PULSE 97; RESP 20; TEMP 36.4; O2SAT 97; BMI 38.9
--- NOTE | 2023-08-24 05:41 | EDS_ITS ---
HPI History of Present Illness Chief Complaint: General Illness Informant: patient Onset/Context/Timing Onset: Days (2) Associated Symptoms Associated Symptoms ED: cough Narrative Narrative: Patient presents with 2 days of cough, rhinorrhea, congestion, headache, nausea/vomiting/diarrhea without blood, states she is having difficulty keeping anything down. States she was recently exposed to someone with COVID and influenza and is concerned she may have 1 or both. She has not done any home testing. She is coughing up some occasional phlegm that is clear. Subjective fevers has not checked her temperature. Has asthma and also is feeling tightness in her chest and some shortness of breath that gets worse when she lies down and sometimes better after coughing up some sputum. She has a rescue inhaler at home but cannot find it so she has not used it. She agrees that this feels like her asthma to some degree in her chest. [facility] Medical History Abdominal pain Asthma Chronic back pain Depression with anxiety Diarrhea Frequent headaches GERD (gastroesophageal reflux disease) H. pylori infection Heavy menses History of substance abuse Nausea and vomiting Scoliosis Seasonal allergies Vitamin D deficiency Home Medications ferrous sulfate 325 mg (65 mg iron) tablet 325 mg PO TID #90 tabs 09/01/22 [Rx Last Taken Unknown] cyclobenzaprine 10 mg tablet 10 mg PO QHS PRN PRN Muscle Spasm #5 TABLETS 01/29/23 [Rx Last Taken Unknown] hydrocodone-acetaminophen 5-325mg 5mg-325mg 1 tab PO Q6H PRN PRN Pain 3 days #10 TABLETS 01/29/23 [Rx Last Taken Unknown] albuterol sulfate 90 mcg/actuation aerosol inhaler (Ventolin HFA) 1 - 2 puff inhalation Q4H PRN PRN Wheezing ##1 08/24/23 [Rx Last Taken Unknown] ondansetron 4 mg disintegrating tablet 8 mg (2 x 4 mg) PO Q8H PRN PRN Nausea #20 tabs 08/24/23 [Rx Last Taken Unknown] prednisone 20 mg tablet 40 mg (2 x 20 mg) PO DAILY #10 TABLETS 08/24/23 [Rx Last Taken Unknown] Allergy/AdvReac Type Severity Reaction Status Date / Time blueberry [Blueberry] Allergy Anaphylaxis Verified 08/24/23 05:33 gabapentin Allergy Rash Verified 08/24/23 05:33 nickel [Nickel] Allergy Hives Verified 08/24/23 05:33 lactose AdvReac Upset Verified 08/24/23 05:33 Stomach Family History Aunt Diabetes Colon cancer Grandmother COPD (chronic obstructive pulmonary disease) Heart disease Hypertension Uncle Heart disease Hypertension Myocardial infarction, Onset Age: 40 Father Cancer lung Hypertension Mother Colon cancer Surgical History History of appendectomy History of tonsillectomy Social History household members: children Smoking Status: Current every day smoker tobacco type: cigarettes Tobacco: How many years used: 12 alcohol intake: never substance use type: former substance user Date of last use: 08/21/2013 and methamphetamine caffeine: No what type of physical activity do you participate in: walking seatbelt use: always do you feel safe at home: Yes additional social history: Melanie-Leigha NGUYEN ED Constitutional Constitutional ED: Reports body ache(s), chills, fatigue, fever(s), headache(s) and malaise Eyes Eyes: Denies change in vision or diplopia ENT ENT ED: Reports rhinorrhea; Denies ear pain or sore throat Cardiovascular Cardiovascular: Denies palpitations, pedal edema, racing heartbeat, radiating jaw, neck or arm pain or syncope Respiratory/Chest Respiratory/Chest: Reports chest tightness, cough, dyspnea and sputum Gastrointestinal Gastrointestinal: Reports diarrhea, nausea and vomiting; Denies abdominal pain Genitourinary Genitourinary ED: Denies dysuria or hematuria Musculoskeletal Musculoskeletal: Denies back pain or neck pain Integumentary Denies abscess or rash Neurologic Neurologic: Reports headache(s); Denies paresthesias or weakness Psychiatric Psychiatric: Denies suicidal ideation or suicidal thoughts EXAM Physical Exam Const Vital Signs: 08/24/23 05:30 08/24/23 06:01 Temperature 97.5 F L Temperature Source Temporal Pulse Rate 97 98 Respiratory Rate 20 H 18 Blood Pressure 162/101 H Blood Pressure Mean 121 Pulse Ox 97 Oxygen Delivery Method Room Air Positive well nourished, well developed and obese Constitutional Narrative: Malaised-appearing, no distress General Appearance ED: well developed and NAD Nutritional Appearance: obese HEENT Reports moist mucous membranes normocephalic and atraumatic Eyes PERRL and EOMs intact bilaterally Neck full ROM and supple Resp normal respiratory effort and clear to auscultation bilaterally Cardio regular rate, regular rhythm and no murmurs Rate: Negative for tachycardic GI non-tender and non-distended Auscultation: normoactive bowel sounds Palpation: soft Back/Spine no CVA tenderness General Back: other FROM Extremity normal to inspection and no calf tenderness General Extremety ED: Negative for edema, pulses abnormal or tenderness General Extremity: Negative for edema or pulses abnormal Neuro oriented x3, CN's II-XII intact bilaterally and no sensory deficits noted Sensorium / Orientation: awake and alert Motor Exam: strength 5/5 throughout Psych Mood & Affect: anxious Skin no rashes or lesions noted and no wounds MDM MDM MDM Narrative Medical decision making narrative: Patient coughs up some clear sputum during evaluation, subsequently I evaluated her lungs and she is clear throughout with symmetric breath sounds and no respiratory distress. While seen she is dyspneic she is conversive in full sentences, her pulse ox is 97% on room air, and I do not think she has pneumonia or is in need of a chest x-ray right now. COVID/influenza swab was obtained, she was offered IV fluids but declines does not want any needles so oral Zofran 8 mg ordered in addition to an albuterol aerosol. Aerosol did help some. Swab is positive for influenza A and otherwise negative. She is stable we will start her on steroids for her asthma flareup, prescribe her also Zofran and albuterol inhaler. She was offered Toradol here but declined would rather ibuprofen so will be given. Discharge Plan Triage Chief Complaint: General Illness ED Provider: Julio Cesar Sanchez Dx/Rx/DC Orders Clinical Impression: Influenza A, Acute asthma exacerbation Instructions: The Flu (Influenza), About Your Asthma Action Plan Prescriptions: New prednisone 20 mg tablet 40 mg PO DAILY Qty: 10 0RF albuterol sulfate [Ventolin HFA] 90 mcg/actuation HFA aerosol inhaler 1 - 2 puff inhalation Q4H PRN PRN (Reason: Wheezing) Qty: 1 0RF ondansetron [ondansetron] 4 mg tablet,disintegrating 8 mg PO Q8H PRN PRN (Reason: Nausea) Qty: 20 0RF No Action ferrous sulfate 325 mg (65 mg iron) tablet 325 mg PO TID Qty: 90 0RF hydrocodone-acetaminophen [hydrocodone-acetaminophen] 5-325 mg tablet 1 tab PO Q6H PRN PRN (Reason: Pain) 3 Days Qty: 10 0RF cyclobenzaprine [cyclobenzaprine] 10 mg tablet 10 mg PO QHS PRN PRN (Reason: Muscle Spasm) Qty: 5 0RF Primary Care Provider: Pebbles Joy Referrals: Pebbles Joy MD [Primary Care Provider] - 1 Week if not improving Activity Restrictions/Additional Instructions: Since you received first dose/day of prednisone in the emergency department, start the prednisone prescription on 08/25 and take daily until completed/finished. Disposition Disposition: Home, Self Care
[2023-08-24] MEDS: Ondansetron ODT 4 MG Tablet 8 MG PO (05:47)
--- OUTSIDE RECORDS SUMMARY | 2023-08-24 05:54 | XMS RPT_ITS | CCD ---
Author Name Unknown Address [address] [place] [address] Organization [facility] Care Team Providers Care Pitch Worker Name Role Phone GODFREY PATRICIA Unavailable Unavailable Basilio Darling Unavailable Unavailable Pebbles Joy MD Primary Care Provider [phone] PEBBLES JOY Primary Care Unavailable PEBBLES JOY Primary Care Unavailable PEBBLES JOY Primary Care Unavailable Allergies Allergy Classification Reported Allergen(s) Allergy Type Date of Onset Reaction(s) Facility (5 sources) Blueberry; Translations: [BLUEBERRY] Propensity to adverse reactions to food (disorder) 5 [facility] Repository (5 sources) lactase; Translations: [LACTASE] Drug Allergy 0 Diarrhea, GI Upset [facility] Repository (5 sources) nickel; Translations: [NICKEL] Drug Allergy 5 [facility] Repository (5 sources) MUSHROOM FLAVOR; Translations: [MUSHROOM FLAVOR] Propensity to adverse reactions to drug (disorder) 7 [facility] Repository (4 sources) gabapentin; Translations: [GABAPENTIN] Drug Allergy 9 [facility] Medications Current Medications Medication Drug Class(es) Dates Sig (Normalized) Sig (Original) amoxicillin 875 mg / clavulanate 125 mg oral tablet (1 source) Penicillin-class Antibacterial Start: 07-19-2022 End: 07-26-2022 take 1 tablet by mouth twice daily amoxicillin-clav ulanic acid (AUGMENTIN) 875-125 mg per tablet Take 1 tablet by mouth twice daily for 7 days. 14 tablet 0 07/19/2022 07/26/2022 Active Completed/Discontinued Medications Medication Drug Class(es) Dates Sig (Normalized) Sig (Original) [id number] 200 actuat albuterol 0.09 mg/actuat metered dose inhaler (7 sources) beta2-Adrenergic Agonist Start: 07-19-2022 take 2 puff(s) by inhalation every six hours as needed albuterol HFA (PROAIR HFA) 90 mcg/actuation inhaler Inhale 2 Puffs as instructed every 6 hours as needed. 1 Each 0 06/09/2023 Active Problems Active Problems Problem Classification Problem Date Documented Date Episodic/Chronic Attention-deficit, conduct, and disruptive behavior disorders (3 sources) Attention deficit hyperactivity disorder; Translations: [Attention-deficit hyperactivity disorder, unspecified type] Onset: 02-17-2010 02-17-2010 Chronic Esophageal disorders (3 sources) Gastroesophageal reflux disease; Translations: [Gastro-esophageal reflux disease without esophagitis] 07-15-2015 Chronic Headache; including migraine (1 source) Headache; Translations: [Severe headache] 06-07-2023 Episodic Immunizations and screening for infectious disease (1 source) Contact with or exposure to other viral diseases; Translations: [Exposure to COVID-19 virus] 06-09-2023 Episodic Other acquired deformities (3 sources) Dextroscoliosis; Translations: [Other forms of scoliosis, site unspecified] 07-15-2015 Chronic Other nervous system disorders (1 source) Impairment of balance; Translations: [Other abnormalities of gait and mobility] 06-07-2023 Episodic Other nutritional; endocrine; and metabolic disorders (3 sources) Body mass index 40+ - severely obese; Translations: [Morbid (severe) obesity due to excess calories] Onset: 08-19-2015 08-19-2015 Chronic Other upper respiratory infections (2 sources) Acute maxillary sinusitis; Translations: [Acute maxillary sinusitis, unspecified] Episodic Spondylosis; intervertebral disc disorders; other back problems (3 sources) Backache; Translations: [Dorsalgia, unspecified] 07-15-2015 Episodic Substance-related disorders (3 sources) Tobacco dependence syndrome; Translations: [Nicotine dependence, unspecified, uncomplicated] 07-15-2015 Chronic Unclassified (2 sources) Constipation, unspecified / K59.00(ICD-10) Onset: 03-07-2018 Unclassified (1 source) Periumbilical pain / R10.33(ICD-10) Onset: 03-07-2018 Unclassified (1 source) Nausea / R11.0(ICD-10) Onset: 03-07-2018 Urinary tract infections (1 source) Cystitis, unspecified without hematuria; Translations: [Cystitis, unspecified without hematuria] Onset: 03-05-2018 Episodic Past or Other Problems Problem Classification Problem Date Documented Da te Episodic/Chronic Other skin disorders (3 sources) Hidradenitis; Translations: [Hidradenitis suppurativa] Onset: 08-19-2015 08-19-2015 Episodic Other skin disorders (3 sources) Eruption; Translations: [Rash and other nonspecific skin eruption] Onset: 08-19-2015 08-19-2015 Episodic Results Test Name Value Interpretation Reference Range Facil ity Vital Signs Date Time Vital Sign Value Performing Clinician Fawn espino 06-09-2023 09:29-0400 Body temperature 97.3 [degF] Clari Athy PA-C Work Phone: [facility] 06-09-2023 09:29-0400 Body weight 124.65 kg Clari Athy PA-C Work Phone: [facility] 06-09-2023 09:29-0400 Diastolic blood pressure 85 mm[Hg] Clari Athy PA-C Work Phone: [facility] 06-09-2023 09:29-0400 Heart rate 84 /min Clari Athy PA-C Work Phone: [facility] 06-09-2023 09:29-0400 Respiratory rate 18 /min Clari Athy PA-C Work Phone: [facility] 06-09-2023 09:29-0400 SaO2% (BldA) [Mass fraction] 98 % Clari Athy PA-C Work Phone: [facility] 06-09-2023 09:29-0400 Systolic blood pressure 137 mm[Hg] Clari Athy PA-C Work Phone: [facility] 06-07-2023 11:49-0400 Body temperature 97.9 [degF] Wicho Mullen APRN.CNP Work Phone: [facility] 06-07-2023 11:49-0400 Body weight 124.38 kg Wicho Mullen WARE CARRIER.PRACTICE LEAD Work Phone: [facility] 06-07-2023 11:49-0400 Diastolic blood pressure 78 mm[Hg] Wicho Mullen WARE CARRIER.PRACTICE LEAD Work Phone: [facility] 06-07-2023 11:49-0400 Heart rate 80 /min Wicho Mullen WARE CARRIER.PRACTICE LEAD Work Phone: [facility] 06-07-2023 11:49-0400 Respiratory rate 21 /min Wicho Mullen WARE CARRIER.PRACTICE LEAD Work Phone: [facility] 06-07-2023 11:49-0400 SaO2% (BldA) [Mass fraction] 99 % Wicho Mullen WARE CARRIER.PRACTICE LEAD Work Phone: [facility] 06-07-2023 11:49-0400 Systolic blood pressure 110 mm[Hg] Wicho Mullen WARE CARRIER.PRACTICE LEAD Work Phone: [facility] 07-19-2022 10:30-0500 Body temperature 97.39 [degF] Clari Athy PA-C Work Phone: [facility] 07-19-2022 10:30-0500 Body weight 127.91 kg Clari Athy PA-C Work Phone: [facility] 07-19-2022 10:30-0500 Diastolic blood pressure 82 mm[Hg] Clari Athy PA-C Work Phone: [facility] 07-19-2022 10:30-0500 Heart rate 88 /min Clari Athy PA-C Work Phone: [facility] 07-19-2022 10:30-0500 Respiratory rate 16 /min Clari Athy PA-C Work Phone: [facility] 07-19-2022 10:30-0500 SaO2% (BldA) [Mass fraction] 98 % Clari Athy PA-C Work Phone: [facility] 07-19-2022 10:30-0500 Systolic blood pressure 128 mm[Hg] Clari Medina PA-C Work Phone: [facility] Encounters Encounter Date Encounter Type Care Provider Facility Start: 06-09-2023 End: 06-09-2023 ambulatory PEBBLES JOY Facility:[facility] Start: 06-09-2023 End: 06-09-2023 Patient encounter procedure Clari Medina PA-C Work Phone: [facility] Procedures Date Procedure Procedure Detail Performing Clinician Start: 03-07-2018 Ther proph/dx njx iv push single/1st sbst/drug Basilio Darling Plan of Treatment Date Care Activity Detail Author Start: 04-21-2023 Influenza vaccination Influenza Vaccine (#1) [facility] Start: 08-21-2022 Depression Assessment Depression Assessment [facility] Start: 04-21-2022 Influenza vaccination INFLUENZA (#1) [facility] Start: 08-21-2021 DEPRESSION ASSESSMENT DEPRESSION ASSESSMENT [facility] Start: 02-07-2020 HPV TESTING HPV TESTING [facility] Start: 12-15-2016 Urine microalbumin profile [facility] Start: 04-22-2016 PAP TESTING PAP TESTING [facility] Start: 02-07-2008 HEPATITIS C SCREENING HEPATITIS C SCREENING [facility] Start: 02-07-2008 HIV SCREENING HIV SCREENING [facility] Start: 02-07-1996 PNEUMOCOCCAL (1 - PCV) PNEUMOCOCCAL (1 - PCV) [facility] Start: 02-07-1996 Pneumococcal vaccination Pneumococcal Vaccine (1 - PCV) [facility] Start: 1990 COVID-19 VACCINE (#1) COVID-19 VACCINE (#1) [facility] COVID & INFLUENZA A/ B & RSV NAAT, ROUTINE COVID & INFLUENZA A/B & RSV NAAT, ROUTINE Microbiology Routine Exposure to COVID-19 virus 06/09/2023 9:54 AM EDT [facility] Work Phone: ROUTINE FLU A/B + RSV ROUTINE FL U A/B + RSV Lab Routine Exposure to COVID-19 virus 06/09/2023 9:54 AM EDT [facility] Work Phone: SARS-CoV-2 (COVID-19 ) RNA [Presence] in Respiratory specimen by JOSE with probe detection COVID NAAT, UPPER RESPIRATORY, ROUTINE Microbiology Routine Exposure to COVID-19 virus 06/09/2023 9:54 AM EDT [facility] Work Phone: Immunizations Immunization Date Immunization Notes Care Provider Praveen perez 07-28-2010 human papilloma viru s vaccine, quadrivalent Clari Athy PA-C Work Phone: [facility] Work Phone: 12-15-2006 human papilloma viru s vaccine, quadrivalent Clari Athy PA-C Work Phone: [facility] Work Phone: 12-15-2006 tetanus toxoid, redu melita diphtheria toxoid, and acellular pertussis vaccine, adsorbed Clari Athy PA-C Work Phone: [facility] Work Phone: 09-26-2006 human papilloma viru s vaccine, quadrivalent Clari Athy PA-C Work Phone: [facility] Work Phone: 09-26-2006 Meningococcal, MCV4, unspecified conjugate formulation(groups A, C, Y and W-135) Clari Athy PA-C Work Phone: [facility] Work Phone: 06-05-2003 influenza virus vaccine, unspecified formulation Clari Athy PA-C Work Phone: [facility] Work Phone: 04-07-2003 hepatitis B vaccine, pediatric or pediatric/adolescent dosage Clari Athy PA-C Work Phone: [facility] Work Phone: 05-10-2002 hepatitis B vaccine, pediatric or pediatric/adolescent dosage Clari Athy PA-C Work Phone: [facility] Work Phone: 03-26-2002 hepatitis B vaccine, pediatric or pediatric/adolescent dosage Clari Athy PA-C Work Phone: [facility] Work Phone: 03-26-2002 measles, mumps and rubella virus vaccine Clari Athy PA-C Work Phone: [facility] Work Phone: 03-23-1995 diphtheria, tetanus toxoids and acellular pertussis vaccine Clari Athy PA-C Work Phone: [facility] Work Phone: 03-23-1995 trivalent poliovirus vaccine, live, oral Clari Athy PA-C Work Phone: [facility] 09-05-1991 diphtheria, tetanus toxoids and pertussis vaccine Clari Athy PA-C Work Phone: [facility] Work Phone: 09-05-1991 measles, mumps and rubella virus vaccine Clari Athy PA-C Work Phone: [facility] Work Phone: 09-02-1991 trivalent poliovirus vaccine, live, oral Clari Athy PA-C Work Phone: [facility] 01-24-1991 diphtheria, tetanus toxoids and pertussis vaccine Clari Athy PA-C Work Phone: [facility] Work Phone: 01-24-1991 haemophilus influenz ae type b vaccine, HbOC conjugate Clari Athy PA-C Work Phone: [facility] Work Phone: 1990 diphtheria, tetanus toxoids and pertussis vaccine Clari Athy PA-C Work Phone: [facility] Work Phone: 1990 haemophilus influenz ae type b vaccine, HbOC conjugate Clari Athy PA-C Work Phone: [facility] Work Phone: 1990 trivalent poliovirus vaccine, live, oral Clari Athy PA-C Work Phone: [facility] 1990 diphtheria, tetanus toxoids and pertussis vaccine Clari Athy PA-C Work Phone: [facility] Work Phone: 1990 trivalent poliovirus vaccine, live, oral Clari Medina PA-C Work Phone: [facility] Payers Date Payer Category Payer Unknown [id number] 2020 Medicaid [id number] 2020 Medicaid [id number] Social History Date Type Detail Facility Start: 07-19-2022 [facility] Work Phone: History of tobacco use Cigarette Smoker C [facility] Work Phone: Start: 07-28-2020 End: 07-19-2022 Cigarettes smoked current (pack per day) - Reported 1 [facility] Start: 07-19-2022 Tobacco use and exposure Smokeless tobacco non-user [facility] Work Phone: Start: 07-19-2022 End: 06-09-2023 Alcohol intake Current drinker of alcohol (finding) [facility] Start: 07-19-2022 Tobacco Comment smokes 5-10 ci garettes per day [facility] Start: 06-29-2016 Alcohol Comment ocassional [facility] Start: 1990 Sex Assigned At Not on file C [facility] Start: 07-09-2022 End: 07-19-2022 Exposure to SARS-CoV-2 (event) Not sure [facility] Work Phone: Start: 07-28-2020 End: 06-07-2023 Tobacco use panel [facility] PHQ2 Score 0 [facility] Progress note 06-09-2023 Note Date & Type Note Facility 06-09-2023 Note HNO ID: [id number] Author: Clari Medina PA-C Service: ? Author Type: Physician Business And Marketing Teacher Type: Progress Notes Filed: 06/09/2023 10:49 AM Note Text: This note was created using NoteWriter. Subjective Radha Mitchell is a 33 year old female. HPI Patient presents with a chief complaint of cough congestion body aches headache over the past 4 days. She was triaged on 06/07 but sent to the ER for severe headache. She states her headache has improved some. She was still rated a 4 5. She has been taking Tylenol and aspirin [id number]. She was exposed to COVID by multiple people. Denies vomiting or diarrhea. No chest pain or shortness of breath. Mostly a headache behind her eyes and frontal sinus pressure. Review of Systems Constitutional: Positive for chills and fatigue. Negative for fever. HENT: Positive for congestion, postnasal drip, rhinorrhea and sinus pressure. Negative for ear pain and sore throat. Respiratory: Positive for cough. Negative for shortness of breath and wheezing. Cardiovascular: Negative. Gastrointestinal: Negative. Genitourinary: Negative. Musculoskeletal: Negative. All other systems reviewed and are negative. PAST MEDICAL HISTORY Diagnosis Date ADHD (attention deficit hyperactivity disorder) Appendicitis 07/04/2010 Dextroscoliosis GERD (gastroesophageal reflux disease) Mid back pain PMH - PAST MEDICAL HISTORY OF normal color vision Tobacco dependence Current Outpatient Medications Medication Sig Dispense Refill Xheullkuvkbvxdg-Ctnbkyzau-NO (BROMFED DM) 2-30-10 mg/5 mL syrup Take 10 mL by mouth four times a day as needed. 200 mL 0 ibuprofen (MOTRIN) 800 mg tablet Take 1 tablet by mouth every 8 hours as needed for pain. Take with food. 30 tablet 0 albuterol HFA (PROAIR HFA) 90 mcg/actuation inhaler Inhale 2 Puffs as instructed every 6 hours as needed. 1 Each 0 albuterol HFA (PROAIR HFA) 90 mcg/actuation inhaler Inhale 2 Puffs as instructed every 6 hours as needed. 1 Each 0 fluticasone (FLONASE) 50 mcg/actuation nasal spray Use 2 Sprays in each nostril once daily. Rinse mouth after use. (Patient not taking: Reported on 06/07/2023) 1 Each 0 albuterol HFA (PROVENTIL HFA, VENTOLIN HFA) 90 mcg/actuation inhaler EVERY 4 HOURS NEEDED PRN For Wheezing (Patient not taking: Reported on 06/07/2023) doxycycline monohydrate (MONODOX) 100 mg capsule TWICE A DAY (Patient not taking: Reported on 07/19/2022) hydrocortisone (CORTISONE) 1 % cream Apply 1 application to affected area twice daily. APPLY TO AFFECTED AREA 30 g 0 No current facility-administered medications for this visit. PAST SURGICAL HISTORY Procedure Laterality Date EXTRACTION ERUPTED TOOTH/EXR 2 molars, 2 wisdom LAPAROSCOPIC APPENDECTOMY 07/04/2010 TONSILLECTOMY AND ADENOIDECTOMY AGE 12/> 2002 FAMILY HISTORY Problem Relation Age of Onset Hypertension Paternal Grandfather Cancer Father lung Hypertension Father Cancer Mother colon Hypertension Paternal Grandmother Cancer Paternal Aunt lung and brain Heart Paternal Uncle bypass Breast Cancer Maternal Grandmother Colon Cancer Maternal Grandmother Social History Tobacco Use Smoking status: Every Day Packs/day: 1.00 Years: 12.00 Additional pack years: 0.00 Total pack years: 12.00 Types: Cigarettes Smokeless tobacco: Never Tobacco comments: smokes 5-10 cigarettes per day Substance Use Topics Alcohol use: Yes Comment: ocassional Drug use: No Objective BP 137/85 Pulse 84 Temp 36.3 ?C (97.3 ?F) Resp 18 Wt 124.6 kg (274 lb 12.8 oz) LMP 06/03/2023 SpO2 98% BMI 39.43 kg/m? Physical Exam Vitals reviewed. Constitutional: Appearance: Normal appearance. HENT: Head: Normocephalic and atraumatic. Right Ear: Tympanic membrane, ear canal and external ear normal. Left Ear: Tympanic membrane, ear canal and external ear normal. Nose: Congestion present. Mouth/Throat: Mouth: Mucous membranes are moist. Pharynx: Oropharynx is clear. Cardiovascular: Rate and Rhythm: Normal rate and regular rhythm. Heart sounds: Normal heart sounds. Pulmonary: Effort: Pulmonary effort is normal. Breath sounds: Normal breath sounds. Musculoskeletal: Cervical back: Neck supple. Neurological: General: No focal deficit present. Mental Status: She is alert and oriented to person, place, and time. Cranial Nerves: No cranial nerve deficit. Motor: No weakness. Gait: Gait normal. Assessment and Plan ASSESSMENT/PLAN: 1. Exposure to COVID-19 virus - ICD9: V01.79, ICD10: Z20.822 (primary diagnosis) Patient was exposed to COVID and has symptoms. Likely is COVID. She is on day 4. Discussed supportive care. Given ibuprofen and Bromfed for symptoms. Follow-up with PCP if not improving. Discussed contagiousness. Patient agreeable. - COVID AND INFLUENZA A/B AND RSV NAAT, ROUTINE - [id number] MG-30 MG-10 MG/5 ML ORAL SYRUP - IBUPROFEN 800 (more content not included)... [facility] History of Present illness Narrative 06-09-2023 Clari Medina PA-C - 06/09/2023 10:46 AM EDT Note Date & Type Note Facility 06-09-2023 History of Presen t illness Narrative This note was created using [email or web address]. Subjective Radha Mitchell is a 33 year old female. HPI Patient presents with a chief complaint of cough congestion body aches headache over the past 4 days. She was triaged on 06/07 but sent to the ER for severe headache. She states her headache has improved some. She was still rated a 4 5. She has been taking Tylenol and aspirin [id number]. She was exposed to COVID by multiple people. Denies vomiting or diarrhea. No chest pain or shortness of breath. Mostly a headache behind her eyes and frontal sinus pressure. Review of Systems Constitutional: Positive for chills and fatigue. Negative for fever. HENT: Positive for congestion, postnasal drip, rhinorrhea and sinus pressure. Negative for ear pain and sore throat. Respiratory: Positive for cough. Negative for shortness of breath and wheezing. Cardiovascular: Negative. Gastrointestinal: Negative. Genitourinary: Negative. Musculoskeletal: Negative. All other systems reviewed and are negative. PAST MEDICAL HISTORY Diagnosis Date ADHD (attention deficit hyperactivity disorder) Appendicitis 07/04/2010 Dextroscoliosis GERD (gastroesophageal reflux disease) Mid back pain PMH - PAST MEDICAL HISTORY OF normal color vision Tobacco dependence Current Outpatient Medications Medication Sig Dispense Refill Cbfnwqppemjfnxd-Faptwxhjm-FI (BROMFED DM) 2-30-10 mg/5 mL syrup Take 10 mL by mouth four times a day as needed. 200 mL 0 ibuprofen (MOTRIN) 800 mg tablet Take 1 tablet by mouth every 8 hours as needed for pain. Take with food. 30 tablet 0 albuterol HFA (PROAIR HFA) 90 mcg/actuation inhaler Inhale 2 Puffs as instructed every 6 hours as needed. 1 Each 0 albuterol HFA (PROAIR HFA) 90 mcg/actuation inhaler Inhale 2 Puffs as instructed every 6 hours as needed. 1 Each 0 fluticasone (FLONASE) 50 mcg/actuation nasal spray Use 2 Sprays in each nostril once daily. Rinse mouth after use. (Patient not taking: Reported on 06/07/2023) 1 Each 0 albuterol HFA (PROVENTIL HFA, VENTOLIN HFA) 90 mcg/actuation inhaler EVERY 4 HOURS NEEDED PRN For Wheezing (Patient not taking: Reported on 06/07/2023) doxycycline monohydrate (MONODOX) 100 mg capsule TWICE A DAY (Patient not taking: Reported on 07/19/2022) hydrocortisone (CORTISONE) 1 % cream Apply 1 application to affected area twice daily. APPLY TO AFFECTED AREA 30 g 0 No current facility-administered medications for this visit. PAST SURGICAL HISTORY Procedure Laterality Date EXTRACTION ERUPTED TOOTH/EXR 2 molars, 2 wisdom LAPAROSCOPIC APPENDECTOMY 07/04/2010 TONSILLECTOMY & ADENOIDECTOMY AGE 12/> 2001 FAMILY HISTORY Problem Relation Age of Onset Hypertension Paternal Grandfather Cancer Father lung Hypertension Father Cancer Mother colon Hypertension Paternal Grandmother Cancer Paternal Aunt lung and brain Heart Paternal Uncle bypass Breast Cancer Maternal Grandmother Colon Cancer Maternal Grandmother Social History Tobacco Use Smoking status: Every Day Packs/day: 1.00 Years: 12.00 Additional pack years: 0.00 Total pack years: 12.00 Types: Cigarettes Smokeless tobacco: Never Tobacco comments: smokes 5-10 cigarettes per day Substance Use Topics Alcohol use: Yes Comment: ocassional Drug use: No Objective BP 137/85 Pulse 84 Temp 36.3 C (97.3 F) Resp 18 Wt 124.6 kg (274 lb 12.8 oz) LMP 06/03/2023 SpO2 98% BMI 39.43 kg/m Physical Exam Vitals reviewed. Constitutional: Appearance: Normal appearance. HENT: Head: Normocephalic and atraumatic. Right Ear: Tympanic membrane, ear canal and external ear normal. Left Ear: Tympanic membrane, ear canal and external ear normal. Nose: Congestion present. Mouth/Throat: Mouth: Mucous membranes are moist. Pharynx: Oropharynx is clear. Cardiovascular: Rate and Rhythm: Normal rate and regular rhythm. Heart sounds: Normal heart sounds. Pulmonary: Effort: Pulmonary effort is normal. Breath sounds: Normal breath sounds. Musculoskeletal: Cervical back: Neck supple. Neurological: General: No focal deficit present. Mental Status: She is alert and oriented to person, place, and time. Cranial Nerves: No cranial nerve deficit. Motor: No weakness. Gait: Gait normal. Assessment and Plan ASSESSMENT/PLAN: 1. Exposure to COVID-19 virus - ICD9: V01.79, ICD10: Z20.822 (primary diagnosis) Patient was exposed to COVID and has symptoms. Likely is COVID. She is on day 4. Discussed supportive care. Given ibuprofen and Bromfed for symptoms. Follow-up with PCP if not improving. Discussed contagiousness. Patient agreeable. - COVID & INFLUENZA A/B & RSV NAAT, ROUTINE - [id number] MG-30 MG-10 MG/5 ML ORAL SYRUP - IBUPROFEN 800 MG TABLET - COVID NAAT, UPPER RESPIRATORY, ROUTINE - ROUTINE FLU A/B + RSV 2. URI, acute - ICD9: 465.9, ICD10: J06.9 Clari Medina PA-C documented in this encounter [facility] Progress note 06-07-2023 Note Date & Type Note Facility 06-07-2023 Note HNO ID: [id number] Author: Wicho Mullen APRN.PRACTICE LEAD Service: ? Author Type: Nurse Practitioner Type: Progress Notes Filed: 06/07/2023 1:30 PM Note Text: Subjective HPI HPI Radha Mitchell is a 33 year old female who presents today for CC of severe migraine, reports no hx of migraines. States last night was unable to stand and hands felt weak. Denies possibility of being . .Patient presents with: Headache: Migraine, vomiting, nausea x 3 days PAST MEDICAL HISTORY Diagnosis Date ADHD (attention deficit hyperactivity disorder) Appendicitis 07/04/2010 Dextroscoliosis GERD (gastroesophageal reflux disease) Mid back pain PMH - PAST MEDICAL HISTORY OF normal color vision Tobacco dependence PAST SURGICAL HISTORY Procedure Laterality Date EXTRACTION ERUPTED TOOTH/EXR 2 molars, 2 wisdom LAPAROSCOPIC APPENDECTOMY 07/04/2010 TONSILLECTOMY AND ADENOIDECTOMY AGE 12/2001 ALLERGIES Lactose Intolerance [Lactase], Mushroom Flavor, Blueberry, Gabapentin, and Nickel MEDICATIONS albuterol HFA (PROAIR HFA) 90 mcg/actuation inhaler Inhale 2 Puffs as instructed every 6 hours as needed. hydrocortisone (CORTISONE) 1 % cream Apply 1 application to affected area twice daily. APPLY TO AFFECTED AREA fluticasone (FLONASE) 50 mcg/actuation nasal spray Use 2 Sprays in each nostril once daily. Rinse mouth after use. (Patient not taking: Reported on 06/07/2023) albuterol HFA (PROVENTIL HFA, VENTOLIN HFA) 90 mcg/actuation inhaler EVERY 4 HOURS NEEDED PRN For Wheezing (Patient not taking: Reported on 06/07/2023) doxycycline monohydrate (MONODOX) 100 mg capsule TWICE A DAY (Patient not taking: Reported on 07/19/2022) FAMILY HISTORY Problem Relation Age of Onset Hypertension Paternal Grandfather Cancer Father lung Hypertension Father Cancer Mother colon Hypertension Paternal Grandmother Cancer Paternal Aunt lung and brain Heart Paternal Uncle bypass Breast Cancer Maternal Grandmother Colon Cancer Maternal Grandmother Social History Tobacco Use Smoking status: Every Day Packs/day: 1.00 Years: 12.00 Additional pack years: 0.00 Total pack years: 12.00 Types: Cigarettes Smokeless tobacco: Never Tobacco comments: smokes 5-10 cigarettes per day Substance Use Topics Alcohol use: Yes Comment: ocassional Drug use: No ROS Objective Blood pressure 110/78, pulse 80, temperature 36.6 ?C (97.9 ?F), resp. rate 21, weight 124.4 kg (274 lb 3.2 oz), last menstrual period 06/03/2023, SpO2 99 %. Physical Exam Constitutional: General: She is in acute distress (d/t frontal headache). Appearance: She is not toxic-appearing or diaphoretic. HENT: Head: Normocephalic and atraumatic. Eyes: General: Lids are normal. Comments: PERRLA Pulmonary: Effort: Pulmonary effort is normal. No accessory muscle usage or respiratory distress. Neurological: Mental Status: She is alert and oriented to person, place, and time. Comments: No obvious focal neural deficit. ASSESSMENT/PLAN: 1. Severe headache - ICD9: 784.0, ICD10: R51.9 (primary diagnosis) I will refer to ER, concerns with this being worst headache ever And balance issues/weakness last night Declines squad. 2. Loss of balance - ICD9: 781.99, ICD10: R26.89 As above. Wicho Mullen APRN.[place] [facility] History of Present illness Narrative 06-07-2023 Wicho Mullen APRN.[place] - 06/07/2023 1:20 PM EDT Note Date & Type Note Facility 06-07-2023 History of Presen t illness Narrative Subjective HPI HPI Radha Mitchell is a 33 year old female who presents today for CC of severe migraine, reports no hx of migraines. States last night was unable to stand and hands felt weak. Denies possibility of being . .Patient presents with: Headache: Migraine, vomiting, nausea x 3 days PAST MEDICAL HISTORY Diagnosis Date ADHD (attention deficit hyperactivity disorder) Appendicitis 07/04/2010 Dextroscoliosis GERD (gastroesophageal reflux disease) Mid back pain PMH - PAST MEDICAL HISTORY OF normal color vision Tobacco dependence PAST SURGICAL HISTORY Procedure Laterality Date EXTRACTION ERUPTED TOOTH/EXR 2 molars, 2 wisdom LAPAROSCOPIC APPENDECTOMY 07/04/2010 TONSILLECTOMY & ADENOIDECTOMY AGE 12/> 2001 ALLERGIES Lactose Intolerance [Lactase], Mushroom Flavor, Blueberry, Gabapentin, and Nickel MEDICATIONS albuterol HFA (PROAIR HFA) 90 mcg/actuation inhaler Inhale 2 Puffs as instructed every 6 hours as needed. hydrocortisone (CORTISONE) 1 % cream Apply 1 application to affected area twice daily. APPLY TO AFFECTED AREA fluticasone (FLONASE) 50 mcg/actuation nasal spray Use 2 Sprays in each nostril once daily. Rinse mouth after use. (Patient not taking: Reported on 06/07/2023) albuterol HFA (PROVENTIL HFA, VENTOLIN HFA) 90 mcg/actuation inhaler EVERY 4 HOURS NEEDED PRN For Wheezing (Patient not taking: Reported on 06/07/2023) doxycycline monohydrate (MONODOX) 100 mg capsule TWICE A DAY (Patient not taking: Reported on 07/19/2022) FAMILY HISTORY Problem Relation Age of Onset Hypertension Paternal Grandfather Cancer Father lung Hypertension Father Cancer Mother colon Hypertension Paternal Grandmother Cancer Paternal Aunt lung and brain Heart Paternal Uncle bypass Breast Cancer Maternal Grandmother Colon Cancer Maternal Grandmother Social History Tobacco Use Smoking status: Every Day Packs/day: 1.00 Years: 12.00 Additional pack years: 0.00 Total pack years: 12.00 Types: Cigarettes Smokeless tobacco: Never Tobacco comments: smokes 5-10 cigarettes per day Substance Use Topics Alcohol use: Yes Comment: ocassional Drug use: No ROS Objective Blood pressure 110/78, pulse 80, temperature 36.6 C (97.9 F), resp. rate 21, weight 124.4 kg (274 lb 3.2 oz), last menstrual period 06/03/2023, SpO2 99 %. Physical Exam Constitutional: General: She is in acute distress (d/t frontal headache). Appearance: She is not toxic-appearing or diaphoretic. HENT: Head: Normocephalic and atraumatic. Eyes: General: Lids are normal. Comments: PERRLA Pulmonary: Effort: Pulmonary effort is normal. No accessory muscle usage or respiratory distress. Neurological: Mental Status: She is alert and oriented to person, place, and time. Comments: No obvious focal neural deficit. ASSESSMENT/PLAN: 1. Severe headache - ICD9: 784.0, ICD10: R51.9 (primary diagnosis) I will refer to ER, concerns with this being worst headache ever And balance issues/weakness last night Declines squad. 2. Loss of balance - ICD9: 781.99, ICD10: R26.89 As above. Wicho Mullen APRN.PRACTICE LEAD documented in this encounter [facility] Progress note 07-19-2022 Note Date & Type Note Facility 07-19-2022 Note HNO ID: [id number] Author: Clari Medina PA-C Service: ? Author Type: Physician Business And Marketing Teacher Type: Progress Notes Filed: 07/19/2022 11:20 AM Note Text: This note was created using NoteWriter. Subjective Rdaha Mitchell is a 32 year old female. HPI Patient presents with sinus congestion pressure headache cough over the past 3 weeks. She was seen in the ER and had a negative COVID at that time. She states she was seen the first day of symptoms so they told her it could have been a false negative. No retest done. She has had pressure in her sinuses and postnasal drip. She also would like a refill on her inhaler. No diarrhea. No vomiting. Sometimes the cough does hurt her ribs. Review of Systems Constitutional: Negative. HENT: Positive for congestion, ear pain, postnasal drip, rhinorrhea, sinus pressure, sinus pain and sore throat. Negative for ear discharge. Respiratory: Positive for cough. Negative for shortness of breath and wheezing. Cardiovascular: Negative. Gastrointestinal: Negative. Genitourinary: Negative. Musculoskeletal: Negative. Neurological: Positive for headaches. All other systems reviewed and are negative. PAST MEDICAL HISTORY Diagnosis Date ADHD (attention deficit hyperactivity disorder) Appendicitis 07/04/2010 Dextroscoliosis GERD (gastroesophageal reflux disease) Mid back pain PMH - PAST MEDICAL HISTORY OF normal color vision Tobacco dependence Current Outpatient Medications Medication Sig Dispense Refill albuterol HFA (PROVENTIL HFA, VENTOLIN HFA) 90 mcg/actuation inhaler EVERY 4 HOURS NEEDED PRN For Wheezing hydrocortisone (CORTISONE) 1 % cream Apply 1 application to affected area twice daily. APPLY TO AFFECTED AREA 30 g 0 amoxicillin-clavulanic acid (AUGMENTIN) 875-125 mg per tablet Take 1 tablet by mouth twice daily for 7 days. 14 tablet 0 cetirizine (ZYRTEC) 10 mg tablet Take 1 tablet by mouth once daily for 14 days. 14 tablet 0 predniSONE (DELTASONE) 20 mg tablet Take 2 tablets by mouth once daily for 5 days. 10 tablet 0 albuterol HFA (PROAIR HFA) 90 mcg/actuation inhaler Inhale 2 Puffs as instructed every 6 hours as needed. 1 Each 0 fluticasone (FLONASE) 50 mcg/actuation nasal spray Use 2 Sprays in each nostril once daily. Rinse mouth after use. 1 Each 0 doxycycline monohydrate (MONODOX) 100 mg capsule TWICE A DAY (Patient not taking: Reported on 07/19/2022) No current facility-administered medications for this visit. PAST SURGICAL HISTORY Procedure Laterality Date EXTRACTION ERUPTED TOOTH/EXR 2 molars, 2 wisdom LAPAROSCOPIC APPENDECTOMY 07/04/2010 TONSILLECTOMY AND ADENOIDECTOMY AGE 12/> 2001 FAMILY HISTORY Problem Relation Age of Onset Hypertension Paternal Grandfather Cancer Father lung Hypertension Father Cancer Mother colon Hypertension Paternal Grandmother Cancer Paternal Aunt lung and brain Heart Paternal Uncle bypass Breast Cancer Maternal Grandmother Colon Cancer Maternal Grandmother Social History Tobacco Use Smoking status: Every Day Packs/day: 1.00 Years: 12.00 Pack years: 12.00 Types: Cigarettes Smokeless tobacco: Never Tobacco comments: smokes 5-10 cigarettes per day Substance Use Topics Alcohol use: Yes Comment: ocassional Drug use: No Objective BP 128/82 Pulse 88 Temp 36.3 ?C (97.4 ?F) Resp 16 Wt 127.9 kg (282 lb) LMP 02/16/2018 SpO2 98% BMI 40.46 kg/m? Physical Exam Vitals reviewed. Constitutional: Appearance: Normal appearance. HENT: Head: Normocephalic and atraumatic. Right Ear: Tympanic membrane, ear canal and external ear normal. Left Ear: Tympanic membrane, ear canal and external ear normal. Nose: Mucosal edema and congestion present. Right Sinus: Maxillary sinus tenderness present. No frontal sinus tenderness. Left Sinus: Maxillary sinus tenderness present. No frontal sinus tenderness. Mouth/Throat: Mouth: Mucous membranes are moist. Pharynx: Oropharynx is clear. No oropharyngeal exudate or posterior oropharyngeal erythema. Cardiovascular: Rate and Rhythm: Normal rate and regular rhythm. Heart sounds: Normal heart sounds. Pulmonary: Effort: Pulmonary effort is normal. Breath sounds: Normal breath sounds. Musculoskeletal: Cervical back: Neck supple. Skin: General: Skin is warm and dry. Findings: No rash. Neurological: General: No focal deficit present. Mental Status: She is alert and oriented to person, place, and time. Assessment and Plan ASSESSMENT/PLAN: 1. Acute non-recurrent maxillary sinusitis - ICD9: 461.0, ICD10: J01.00 - Will begin treatment with Augmentin 875 mg PO BID for 7 days - Supportive care with plenty of fluids, rest, and analgesia prn. - Follow up in 3-5 days if symptoms persist or worsen. Clari Medina PA-C [facility] History of Present illness Narrative 07-19-2022 Clari Medina PA-C - 07/19/2022 11:17 AM EST Note Date & Type Note Facility 07-19-2022 History of Presen t illness Narrative This note was created using [employer] 911ter. Subjective Radha Mitchell is a 32 year old female. HPI Patient presents with sinus congestion pressure headache cough over the past 3 weeks. She was seen in the ER and had a negative COVID at that time. She states she was seen the first day of symptoms so they told her it could have been a false negative. No retest done. She has had pressure in her sinuses and postnasal drip. She also would like a refill on her inhaler. No diarrhea. No vomiting. Sometimes the cough does hurt her ribs. Review of Systems Constitutional: Negative. HENT: Positive for congestion, ear pain, postnasal drip, rhinorrhea, sinus pressure, sinus pain and sore throat. Negative for ear discharge. Respiratory: Positive for cough. Negative for shortness of breath and wheezing. Cardiovascular: Negative. Gastrointestinal: Negative. Genitourinary: Negative. Musculoskeletal: Negative. Neurological: Positive for headaches. All other systems reviewed and are negative. PAST MEDICAL HISTORY Diagnosis Date ADHD (attention deficit hyperactivity disorder) Appendicitis 07/04/2010 Dextroscoliosis GERD (gastroesophageal reflux disease) Mid back pain PMH - PAST MEDICAL HISTORY OF normal color vision Tobacco dependence Current Outpatient Medications Medication Sig Dispense Refill albuterol HFA (PROVENTIL HFA, VENTOLIN HFA) 90 mcg/actuation inhaler EVERY 4 HOURS NEEDED PRN For Wheezing hydrocortisone (CORTISONE) 1 % cream Apply 1 application to affected area twice daily. APPLY TO AFFECTED AREA 30 g 0 amoxicillin-clavulanic acid (AUGMENTIN) 875-125 mg per tablet Take 1 tablet by mouth twice daily for 7 days. 14 tablet 0 cetirizine (ZYRTEC) 10 mg tablet Take 1 tablet by mouth once daily for 14 days. 14 tablet 0 predniSONE (DELTASONE) 20 mg tablet Take 2 tablets by mouth once daily for 5 days. 10 tablet 0 albuterol HFA (PROAIR HFA) 90 mcg/actuation inhaler Inhale 2 Puffs as instructed every 6 hours as needed. 1 Each 0 fluticasone (FLONASE) 50 mcg/actuation nasal spray Use 2 Sprays in each nostril once daily. Rinse mouth after use. 1 Each 0 doxycycline monohydrate (MONODOX) 100 mg capsule TWICE A DAY (Patient not taking: Reported on 07/19/2022) No current facility-administered medications for this visit. PAST SURGICAL HISTORY Procedure Laterality Date EXTRACTION ERUPTED TOOTH/EXR 2 molars, 2 wisdom LAPAROSCOPIC APPENDECTOMY 07/04/2010 TONSILLECTOMY & ADENOIDECTOMY AGE 12/> 2001 FAMILY HISTORY Problem Relation Age of Onset Hypertension Paternal Grandfather Cancer Father lung Hypertension Father Cancer Mother colon Hypertension Paternal Grandmother Cancer Paternal Aunt lung and brain Heart Paternal Uncle bypass Breast Cancer Maternal Grandmother Colon Cancer Maternal Grandmother Social History Tobacco Use Smoking status: Every Day Packs/day: 1.00 Years: 12.00 Pack years: 12.00 Types: Cigarettes Smokeless tobacco: Never Tobacco comments: smokes 5-10 cigarettes per day Substance Use Topics Alcohol use: Yes Comment: ocassional Drug use: No Objective BP 128/82 Pulse 88 Temp 36.3 C (97.4 F) Resp 16 Wt 127.9 kg (282 lb) LMP 02/16/2018 SpO2 98% BMI 40.46 kg/m Physical Exam Vitals reviewed. Constitutional: Appearance: Normal appearance. HENT: Head: Normocephalic and atraumatic. Right Ear: Tympanic membrane, ear canal and external ear normal. Left Ear: Tympanic membrane, ear canal and external ear normal. Nose: Mucosal edema and congestion present. Right Sinus: Maxillary sinus tenderness present. No frontal sinus tenderness. Left Sinus: Maxillary sinus tenderness present. No frontal sinus tenderness. Mouth/Throat: Mouth: Mucous membranes are moist. Pharynx: Oropharynx is clear. No oropharyngeal exudate or posterior oropharyngeal erythema. Cardiovascular: Rate and Rhythm: Normal rate and regular rhythm. Heart sounds: Normal heart sounds. Pulmonary: Effort: Pulmonary effort is normal. Breath sounds: Normal breath sounds. Musculoskeletal: Cervical back: Neck supple. Skin: General: Skin is warm and dry. Findings: No rash. Neurological: General: No focal deficit present. Mental Status: She is alert and oriented to person, place, and time. Assessment and Plan ASSESSMENT/PLAN: 1. Acute non-recurrent maxillary sinusitis - ICD9: 461.0, ICD10: J01.00 - Will begin treatment with Augmentin 875 mg PO BID for 7 days - Supportive care with plenty of fluids, rest, and analgesia prn. - Follow up in 3-5 days if symptoms persist or worsen. Clari R Athy, PA-C documented in this encounter [facility] Evaluation note Note Date & Type Note Facility documented in this encounter [facility] Evaluation note Note Date & Type Note Facility documented in this encounter [facility] Evaluation note Note Date & Type Note Facility documented in this encounter [facility] Summary Purpose Family History No Family History Records FoundNo Family History Records FoundNo Family History Records Found Advance Directives No Advanced Directives Records FoundNo Advanced Directives Records FoundNo Advanced Directives Records Found Additional Source Comments INFORMATION SOURCE (unrecogn ized section and content) DATE CREATED AUTHOR AUTHOR'S ORGANIZ ATION 03/13/2018 [facility] DATE CREATED AUTHOR AUTHOR'S ORGANIZ ATION 06/11/2023 [facility] Source Comments (unrecognize d section and content) In the event this informatio n is protected by the Federal Confidentiality of Alcohol and Drug Abuse Patient Records regulations: The Federal rules restrict any use of the information to criminally investigate or prosecute any alcohol or drug abuse patient.[facility] the event this information is protected by the Federal Confidentiality of Alcohol and Drug Abuse Patient Records regulations: The Federal rules restrict any use of the information to criminally investigate or prosecute any alcohol or drug abuse patient.[facility] the event this information is protected by the Federal Confidentiality of Alcohol and Drug Abuse Patient Records regulations: The Federal rules restrict any use of the information to criminally investigate or prosecute any alcohol or drug abuse patient.[facility] Reason for Visit (unrecogniz ed section and content) Reason Comments Headache Migraine, vomiting, nausea x 3 days Reason Comments Headache Head congestion, exp osure to covid x4 days Care Teams (unrecognized sec tion and content) Pitch Worker Relationship Specialty Start Date End Date Pebbles Joy MD [address] [place], [place] [address] PCP - General Internal Medicine 07/19/22 Pitch Worker Relationship Specialty Start Date End Date Pebbles Joy MD [address] [place], [place] [id number] PCP - General Internal Medicine 07/19/22 FOR RECORDS PERTAINING TO PATIENTS WHO ARE OR HAVE BEEN ENROLLED IN A CHEMICAL DEPENDENCY/SUBSTANCEABUSE PROGRAM, SOME INFORMATION MAY BE OMITTED. This clinical summary was aggregated from multiple sources. Caution should be exercised in using it in the provision of clinical care. This summary normalizes information from multiple sources, and as a consequence, information in this document may materially change the coding, format and clinical context of patient data. In addition, data may be omitted in some cases. CLINICAL DECISIONS SHOULD BE BASED ON THE PRIMARY CLINICAL RECORDS. [facility]. provides no warranty or guarantee of the accuracy or completeness of information in this document.
[2023-08-24] MEDS: Albuterol 2.5 MG/3 ML VIAL.NEB. INHALATION (05:58)
[2023-08-24 06:01] VITALS: PULSE 98; RESP 18
[2023-08-24] MEDS: predniSONE 20 MG Tablet 40 MG PO (07:06)
[2023-08-24] MEDS: Ibuprofen 600 MG Tablet PO (07:06)
== END 2023-08-24 07:12 | disposition home or self-care (01) ==
PROVIDERS: Emergency Provider Emergency Medicine; PCP Internal Medicine; Visit Provider Emergency Medicine
DX: J10.1 Influenza due to other identified influenza virus with other respiratory manifestations (principal); J45.901 Unspecified asthma with (acute) exacerbation; F17.210 Nicotine dependence, cigarettes, uncomplicated; E66.9 Obesity, unspecified
CPT/HCPCS: 87631; 94640; 99283

== ENCOUNTER 2023-08-24 14:00 | Emergency (ER) | payer MEDICAID, SELFPAY ==
[2023-08-24 14:02] VITALS: BP 144/85; PULSE 92; RESP 24; TEMP 36.2; O2SAT 98; BMI 38.0
--- NOTE | 2023-08-24 18:00 | ED.RN ---
Pt was waiting in car d/t being known flu positive. Called multiple times and pt did not answer. LWBS
== END 2023-08-24 18:00 | disposition left against medical advice (07) ==
LOC: ED 18:10
PROVIDERS: PCP Internal Medicine
DX: Z53.21 Procedure and treatment not carried out due to patient leaving prior to being seen by health care provider (principal)

== ENCOUNTER 2024-04-12 18:42 | Emergency (ER) | payer MEDICAID, SELFPAY ==
[2024-04-12 18:42] VITALS: BP 148/100; PULSE 80; RESP 16; TEMP 37.7; O2SAT 99; BMI 39.9
--- NOTE | 2024-04-12 19:18 | EX.ED.DYSGE1 ---
HPI History of Present Illness Chief Complaint: Cold Sx Detail of Chief Complaint: Viral symptoms that started this morning Informant: patient Onset/Context/Timing Onset: Today Context: Sudden Onset Timing: Continuous and Waxes and wanes Quality: Occipital headache, congestion, cough, nausea and myalgias arthralgias Location: Generalized Current Severity: Moderate Maximum Severity: Severe Worsened by: Nothing Relieved by: Nothing Associated Symptoms Associated Symptoms: HPI narrative Narrative Narrative: Patient is a 34-year-old woman. She presents with headache, worse in the occiput area, no photophobia or meningeal signs. Does endorse rhinorrhea, congestion postnasal drainage sore throat. She does endorse cough which is productive. She denies hemoptysis. She denies wheezing. Denies dyspnea on exertion. Denies history of asthma or COPD. She is a smoker. She does report nausea. She has no vomiting or diarrhea. She has no urologic symptoms. She complains of myalgias arthralgias. She states she has a rash posterior left leg. Prior similar symptoms: No Recent Illness/Hospitalization: No [facility] [place] [facility] Medical History Diarrhea Nausea and vomiting Abdominal pain Depression with anxiety Vitamin D deficiency Frequent headaches History of substance abuse H. pylori infection GERD (gastroesophageal reflux disease) Heavy menses Chronic back pain Scoliosis Seasonal allergies Asthma Home Medications ?Medication ?Instructions ?Recorded ?Last Taken ?Type ferrous sulfate 325 mg (65 mg 325 mg PO TID #90 tabs 09/01/22 Unknown Rx iron) tablet cyclobenzaprine 10 mg tablet 10 mg PO QHS PRN PRN Muscle Spasm 01/29/23 Unknown Rx #5 TABLETS hydrocodone-acetaminophen 5-325mg 1 tab PO Q6H PRN PRN Pain 3 days 01/29/23 Unknown Rx 5mg-325mg #10 TABLETS albuterol sulfate 90 mcg/actuation 1 - 2 puff inhalation Q4H PRN PRN 08/24/23 Unknown Rx aerosol inhaler (Ventolin HFA) Wheezing ##1 ondansetron 4 mg disintegrating 8 mg (2 x 4 mg) PO Q8H PRN PRN 08/24/23 Unknown Rx tablet Nausea #20 tabs prednisone 20 mg tablet 40 mg (2 x 20 mg) PO DAILY #10 08/24/23 Unknown Rx TABLETS Allergy/AdvReac Type Severity Reaction Status Date / Time blueberry (Blueberry) Allergy Anaphylaxis Verified 04/12/24 18:46 gabapentin Allergy Rash Verified 04/12/24 18:46 nickel (Nickel) Allergy Hives Verified 04/12/24 18:46 lactose AdvReac Upset Verified 04/12/24 18:46 Stomach Family History Aunt Diabetes Colon cancer Grandmother COPD (chronic obstructive pulmonary disease) Heart disease Hypertension Uncle Heart disease Hypertension Myocardial infarction, Onset Age: 40 Father Cancer lung Hypertension Mother Colon cancer Surgical History History of appendectomy History of tonsillectomy Social History household members: children Smoking Status: Current every day smoker tobacco type: cigarettes Tobacco: How many years used: 12 alcohol intake: never substance use type: former substance user Date of last use: 08/21/2013 and methamphetamine caffeine: No what type of physical activity do you participate in: walking seatbelt use: always do you feel safe at home: Yes additional social history: Melanie-Leigha NGUYEN ED Constitutional Constitutional ED: Reports fever(s) and subjective; Denies chills or sweats Eyes Eyes: Denies blurry vision or change in vision ENT ENT ED: Reports rhinorrhea and sore throat; Denies ear pain Cardiovascular Cardiovascular: Denies chest pain, orthopnea, palpitations or paroxysmal nocturnal dyspnea Respiratory/Chest Respiratory/Chest: Reports cough and sputum; Denies dyspnea, dyspnea on exertion, orthopnea or paroxysmal nocturnal dyspnea Gastrointestinal Gastrointestinal: Reports abdominal pain and nausea; Denies diarrhea or vomiting Genitourinary Genitourinary ED: Denies dysuria Musculoskeletal Musculoskeletal: Reports arthralgias, myalgias and neck pain; Denies back pain Integumentary Reports rash Neurologic Neurologic: Reports headache(s); Denies paresthesias or weakness Endocrine Endocrinology: Denies cold intolerance or heat intolerance Hematologic/Lymphatic Hematologic/Lymphatic: Denies easy bruising or lymphadenopathy EXAM Physical Exam Const Vital Signs: 04/12/24 18:42 04/12/24 18:42 04/12/24 19:06 Temperature 99.8 F H 99.8 F H Temperature Source Oral Temporal Pulse Rate 80 80 Respiratory Rate 16 16 Respiratory Effort Short of Breath Respiratory Pattern Normal Blood Pressure 148/100 H 148/100 H Blood Pressure Mean 116 116 Pulse Ox 99 99 Oxygen Delivery Method Room Air Room Air 04/12/24 19:33 Temperature Temperature Source Pulse Rate 71 Respiratory Rate 18 Respiratory Effort Respiratory Pattern Blood Pressure 158/57 H Blood Pressure Mean 90 Pulse Ox 99 Oxygen Delivery Method Room Air Positive well nourished and well developed Constitutional Narrative: Patient appears ill but not toxic. General Appearance ED: well developed; Negative for pallor HEENT Reports dry mucous membranes HEENT Narrative: Head is atraumatic normocephalic. Ears normal. External auditory canal normal. TMs normal. Nares patent with slight clear drainage. Posterior pharynx not erythematous today. Uvula midline. Mouth ED: Yes dry mucous membranes Mouth: dry mucous membranes Eyes PERRL and EOMs intact bilaterally General Eye ED: Negative for pale conjunctiva or scleral icterus Neck no lymphadenopathy, supple and no JVD Neck Narrative: There is no meningeal findings. Resp normal respiratory effort and clear to auscultation bilaterally Cardio regular rate, regular rhythm, S1 normal heart sound, S2 normal heart sound and no murmurs GI normal to inspection, nondistended, normoactive bowel sounds, non-distended and no masses; Negative for non-tender or hepatosplenomegaly Palpation: soft and tender other (Generalized) Back/Spine no CVA tenderness Thoracic Spine / Upper Back: Negative for thoracic spinal tenderness Lumbar Spine / Lower Back: Negative for lumbar spinal tenderness Extremity Extremity Narrative: Patient has mild folliculitis posterior left leg otherwise normal Neuro oriented x3 and CN's II-XII intact bilaterally Sensorium / Orientation: alert Psych mental status grossly normal Skin no wounds and skin turgor normal General Skin Exam: Negative for jaundice or pallor MDM MDM MDM Narrative Medical decision making narrative: Patient's history and physical consistent with a systemic viral illness. Will treat her with IV fluids for dehydration since clinically she is dry. Zofran for her nausea and Toradol for her myalgias arthralgias and headache. Will reassess. Vital signs unremarkable for slightly low blood pressure. She is on no antihypertensive meds. Her temperature is 99.8. By definition she did not have a fever. She is not tachypneic tachycardic or hypoxic. Treatment and Re-Evaluation :: Patient requested more pain medicine. Patient was told she has a viral illness. She possibly has a viral meningitis. At this point I am reluctant to treat with opiate analgesics. Patient was told she will be sick for another 7 to 10 days. Discharge Plan Triage Chief Complaint: Cold Sx ED Provider: Christophe Mcadams Dx/Rx/DC Orders Clinical Impression: Systemic viral illness, Viral cephalgia, URI with cough and congestion, Nausea alone, Elevated blood-pressure reading, without diagnosis of hypertension Instructions: ED Hypertension, To Be Confirmed, ED Viral Syndrome (Adult) Prescriptions: No Action ferrous sulfate 325 mg (65 mg iron) tablet 325 mg PO TID Qty: 90 0RF hydrocodone-acetaminophen [hydrocodone-acetaminophen] 5-325 mg tablet 1 tab PO Q6H PRN PRN (Reason: Pain) 3 Days Qty: 10 0RF cyclobenzaprine [cyclobenzaprine] 10 mg tablet 10 mg PO QHS PRN PRN (Reason: Muscle Spasm) Qty: 5 0RF prednisone 20 mg tablet 40 mg PO DAILY Qty: 10 0RF albuterol sulfate [Ventolin HFA] 90 mcg/actuation HFA aerosol inhaler 1 - 2 puff inhalation Q4H PRN PRN (Reason: Wheezing) Qty: 1 0RF ondansetron [ondansetron] 4 mg tablet,disintegrating 8 mg PO Q8H PRN PRN (Reason: Nausea) Qty: 20 0RF Primary Care Provider: Pebbles Joy Referrals: Pebbles Joy MD [Primary Care Provider] - 1-2 Weeks Activity Restrictions/Additional Instructions: See your physician Dr. Francois in 1 to 2 weeks for blood pressure recheck. Take Tylenol 650 mg every 6 hours. You may take 4 ibuprofen tablets every 8 hours as well. Print Language: Yi Disposition Disposition: Home, Self Care
[2024-04-12 19:33] VITALS: BP 158/57; PULSE 71; RESP 18; O2SAT 99
[2024-04-12] MEDS: 0.9% Normal Saline (1000mL) 1,000 ML 1000 ML IV (19:48)
[2024-04-12] MEDS: Ketorolac 15 MG/ML Vial IV (19:48)
[2024-04-12] MEDS: Ondansetron 4 MG/2 ML Vial IV (19:48)
[2024-04-12 21:08] VITALS: BP 127/81; PULSE 84; RESP 16; TEMP 36.4; O2SAT 96
== END 2024-04-12 21:09 | disposition home or self-care (01) ==
PROVIDERS: Emergency Provider Emergency Medicine; PCP Internal Medicine; Visit Provider Emergency Medicine
DX: B34.9 Viral infection, unspecified (principal); J06.9 Acute upper respiratory infection, unspecified; R03.0 Elevated blood-pressure reading, without diagnosis of hypertension; J45.909 Unspecified asthma, uncomplicated; F17.210 Nicotine dependence, cigarettes, uncomplicated
CPT/HCPCS: 96374; 96375; 96376; 99282; J2405

== ENCOUNTER 2025-03-31 13:21 | Emergency (ER) | payer OTHER, SELFPAY ==
[2025-03-31 13:21] VITALS: BP 129/79; PULSE 89; RESP 18; TEMP 37.2; O2SAT 100; BMI 39.8
--- NOTE | 2025-03-31 13:52 | EX.ED.VIS.UR ---
HPI HPI - URI History of Present Illness Chief Complaint: Sore Throat Detail of Chief Complaint: Upper respiratory tract infectious symptoms Informant: patient Onset/Context/Timing Onset: Days (2 days ago) Context: Sudden Onset Timing: Continuous and Waxes and wanes Quality: Sore throat, rhinorrhea, congestion, cough Location: Upper respiratory tract Current Severity: Mild Maximum Severity: Moderate Worsened by: - (Nothing) Relieved by: - (Nothing) Associated Symptoms Associated Symptoms: Positive for Nasal Congestion and Nonproductive cough; Negative for Headache, Sinus Pressure, Myalgias, Nausea, Vomiting, Diarrhea, Shortness of Breath, Chest Pain, Hemoptysis or Productive Cough Narrative Narrative: Patient is a 35-year-old woman with upper respiratory tract infectious symptoms are started 2 days ago. She denies fever, chills night sweats. Denies headache. She denies photophobia, neck pain or neck stiffness. She denies chest discomfort. She denies GI symptoms. She denies rash. She is a smoker of 1 pack every 3 days. Prior similar symptoms: Yes Recent Illness/Hospitalization: No ROS ROS ED Constitutional Constitutional ED: Denies chills, fever(s), subjective or sweats Eyes Eyes: Denies blurry vision or change in vision ENT ENT ED: Reports rhinorrhea and sore throat; Denies ear pain Cardiovascular Cardiovascular: Denies chest pain, orthopnea, palpitations, paroxysmal nocturnal dyspnea or racing heartbeat Respiratory/Chest Respiratory/Chest: Reports cough; Denies dyspnea, dyspnea on exertion, orthopnea or paroxysmal nocturnal dyspnea Gastrointestinal Gastrointestinal: Denies abdominal pain, diarrhea or vomiting Musculoskeletal Musculoskeletal: Denies arthralgias or myalgias Integumentary Denies rash Hematologic/Lymphatic Hematologic/Lymphatic: Denies easy bleeding or easy bruising [facility] Medical History Diarrhea Nausea and vomiting Abdominal pain Depression with anxiety Vitamin D deficiency Frequent headaches History of substance abuse H. pylori infection GERD (gastroesophageal reflux disease) Heavy menses Chronic back pain Scoliosis Seasonal allergies Asthma Home Medications ?Medication ?Instructions ?Recorded ?Last Taken ?Type ferrous sulfate 325 mg (65 mg 325 mg PO TID #90 tabs 09/01/22 Unknown Rx iron) tablet cyclobenzaprine 10 mg tablet 10 mg PO QHS PRN PRN Muscle Spasm 01/29/23 Unknown Rx #5 TABLETS hydrocodone-acetaminophen 5-325mg 1 tab PO Q6H PRN PRN Pain 3 days 01/29/23 Unknown Rx 5mg-325mg #10 TABLETS albuterol sulfate 90 mcg/actuation 1 - 2 puff inhalation Q4H PRN PRN 08/24/23 Unknown Rx aerosol inhaler (Ventolin HFA) Wheezing ##1 ondansetron 4 mg disintegrating 8 mg (2 x 4 mg) PO Q8H PRN PRN 08/24/23 Unknown Rx tablet Nausea #20 tabs prednisone 20 mg tablet 40 mg (2 x 20 mg) PO DAILY #10 08/24/23 Unknown Rx TABLETS Allergy/AdvReac Type Severity Reaction Status Date / Time blueberry (Blueberry) Allergy Anaphylaxis Verified 03/31/25 13:22 gabapentin Allergy Rash Verified 03/31/25 13:22 nickel (Nickel) Allergy Hives Verified 03/31/25 13:22 lactose AdvReac Upset Verified 03/31/25 13:22 Stomach Family History Aunt Diabetes Colon cancer Grandmother COPD (chronic obstructive pulmonary disease) Heart disease Hypertension Uncle Heart disease Hypertension Myocardial infarction, Onset Age: 40 Father Cancer lung Hypertension Mother Colon cancer Surgical History History of appendectomy History of tonsillectomy Social History household members: children Smoking Status: Current every day smoker tobacco type: cigarettes Tobacco: How many years used: 12 alcohol intake: never substance use type: former substance user Date of last use: 08/21/2013 and methamphetamine caffeine: No what type of physical activity do you participate in: walking seatbelt use: always do you feel safe at home: Yes additional social history: Engaged-Leigha EXAM Physical Exam Const Vital Signs: 03/31/25 13:21 Temperature 98.9 F Temperature Source Temporal Pulse Rate 89 Respiratory Rate 18 Blood Pressure 129/79 H Blood Pressure Mean 95 Pulse Ox 100 Oxygen Delivery Method Room Air Positive well nourished and well developed Constitutional Narrative: Blood pressure is slightly elevated 129/79. BMI is 39.9. General Appearance ED: well developed and NAD; Negative for pallor HEENT Reports moist mucous membranes HEENT Narrative: Head is atraumatic and normocephalic. Ears normal. External auditory canal normal. TMs normal. Nares patent with slight clear drainage. Posterior pharynx erythema or exudate. Uvula midline. No deviation of the tongue with protrusion. She reports mild discomfort with palpation over the right maxillary sinus. Throat: posterior oropharynx normal Eyes PERRL and EOMs intact bilaterally General Eye ED: Negative for pale conjunctiva or scleral icterus Neck no lymphadenopathy, supple, no meningeal signs and no JVD Neck Narrative: Trachea is midline. There is no stridor. She does have a hoarse voice. Resp normal respiratory effort and clear to auscultation bilaterally Cardio S1 normal heart sound, S2 normal heart sound and no murmurs Rate: regular rate Rhythm: regular rhythm Extremity normal to inspection and full ROM General Extremety ED: Negative for cyanosis General Extremity: Negative for cyanosis Neuro oriented x3 and CN's II-XII intact bilaterally Sensorium / Orientation: alert Psych mental status grossly normal Skin General Skin Exam: Negative for jaundice or pallor Lesions: no lesions Rashes: no rashes MDM MDM MDM Narrative Medical decision making narrative: Patient with upper respiratory tract infectious symptoms. Since patient has a Centor score of 0 rapid strep was not obtained. Patient was informed has a viral infection. She may be ill for another 10 to 14 days. Imaging is not indicated with normal pulse, respiratory rate temperature and pulse ox. Furthermore there is no abnormal oscillatory findings. There is no indication for laboratory testing either. She has a history of acute bronchitis in the past as well as frequent headaches. History & Record Review Additional record(s) reviewed:: Prior ED visit and Prior labs Discharge Plan Triage Chief Complaint: Sore Throat ED Provider: Christophe Mcadams Dx/Rx/DC Orders Clinical Impression: Upper respiratory infection with cough and congestion, GERD (gastroesophageal reflux disease), Elevated blood-pressure reading without diagnosis of hypertension Instructions: ED URI, Viral, No Abx (Adult) Prescriptions: No Action ferrous sulfate 325 mg (65 mg iron) tablet 325 mg PO TID Qty: 90 0RF hydrocodone-acetaminophen [hydrocodone-acetaminophen] 5-325 mg tablet 1 tab PO Q6H PRN PRN (Reason: Pain) 3 Days Qty: 10 0RF cyclobenzaprine [cyclobenzaprine] 10 mg tablet 10 mg PO QHS PRN PRN (Reason: Muscle Spasm) Qty: 5 0RF prednisone 20 mg tablet 40 mg PO DAILY Qty: 10 0RF albuterol sulfate [Ventolin HFA] 90 mcg/actuation HFA aerosol inhaler 1 - 2 puff inhalation Q4H PRN PRN (Reason: Wheezing) Qty: 1 0RF ondansetron [ondansetron] 4 mg tablet,disintegrating 8 mg PO Q8H PRN PRN (Reason: Nausea) Qty: 20 0RF Primary Care Provider: Care Physician,No Primary Referrals: Care Physician,No Primary [Primary Care Provider] - Doctor,Your [Non-Staff] - As Needed Print Language: Swedish Disposition Disposition: Home, Self Care
== END 2025-03-31 14:03 | disposition home or self-care (01) ==
PROVIDERS: Emergency Provider Emergency Medicine; Visit Provider Emergency Medicine
DX: J06.9 Acute upper respiratory infection, unspecified (principal); K21.9 Gastro-esophageal reflux disease without esophagitis; R03.0 Elevated blood-pressure reading, without diagnosis of hypertension; F17.210 Nicotine dependence, cigarettes, uncomplicated; J45.909 Unspecified asthma, uncomplicated
CPT/HCPCS: 99282